=== PATIENT | male | born 1960 | race Caucasian/White ===

== ENCOUNTER 2020-05-30 12:45 | Outpatient (REF) | payer SELFPAY ==
--- NOTE | 2020-05-30 13:01 | EEG_ITS ---
The waking background activity consists of low voltage fast frequencies seen diffusely, intermixed with muscle artifacts anteriorly. Low-voltage beta of 18 to 20 Hz is seen diffusely. No sleep stages identified. Photic stimulation is without activation. Hyperventilation was omitted. IMPRESSION: This waking EEG is within normal limits. No sleep stages were identified. MD MITCH Lomeli/BINDU / [id number]
== END 2020-05-30 12:46 | disposition home or self-care (01) ==
LOC: HO.NEURO 12:45
PROVIDERS: PCP Family Medicine; Visit Provider Psychiatry & Neurology Neurology
DX: G47.52 REM sleep behavior disorder (principal); G40.201 Localization-related (focal) (partial) symptomatic epilepsy and epileptic syndromes with complex partial seizures, not intractable, with status epilepticus
CPT/HCPCS: 95816

== ENCOUNTER → 2020-06-05 08:03 | Outpatient (BNVA) | payer BC, SELFPAY | PROVIDERS: Visit Provider Psychiatry & Neurology Neurology | DX: Z13.89 Encounter for screening for other disorder (principal) ==

== ENCOUNTER → 2020-06-08 09:51 | Outpatient (BNVA) | payer BC, SELFPAY | PROVIDERS: PCP Family Medicine; Visit Provider Nurse Practitioner Family | DX: I48.0 Paroxysmal atrial fibrillation (principal); I10 Essential (primary) hypertension; G47.33 Obstructive sleep apnea (adult) (pediatric); R56.9 Unspecified convulsions; E11.9 Type 2 diabetes mellitus without complications; Z79.4 Long term (current) use of insulin; Z79.899 Other long term (current) drug therapy | CPT/HCPCS: 93005 ==

== ENCOUNTER → 2020-09-17 13:41 | Outpatient (BNVA) | payer BC, SELFPAY | PROVIDERS: Visit Provider Internal Medicine Cardiovascular Disease | DX: I48.0 Paroxysmal atrial fibrillation (principal) | CPT/HCPCS: 93005 ==

== ENCOUNTER → 2021-04-10 14:29 | Outpatient (BNVA) | payer BC, SELFPAY | PROVIDERS: PCP Family Medicine; Visit Provider Nurse Practitioner Family ==

== ENCOUNTER → 2021-11-11 15:26 | Outpatient (BNVA) | payer BC, SELFPAY | PROVIDERS: PCP Family Medicine; Visit Provider Internal Medicine Cardiovascular Disease | DX: Z13.89 Encounter for screening for other disorder (principal) ==

== ENCOUNTER → 2022-05-21 15:37 | Outpatient (BNVA) | payer BC, SELFPAY | PROVIDERS: PCP Family Medicine; Referring Provider Family Medicine; Visit Provider Internal Medicine Cardiovascular Disease | DX: I48.0 Paroxysmal atrial fibrillation (principal); I10 Essential (primary) hypertension | CPT/HCPCS: 93005 ==

== ENCOUNTER 2022-09-20 12:13 | Inpatient (IN) | payer BC, SELFPAY ==
[2022-09-20] VITALS (12 sets, daily range): BP systolic 109–159; BP diastolic 55–83; PULSE 59–133; RESP 16–18; TEMP 36.4–37.3; O2SAT 93–98; BMI 34.4
--- NOTE | ~2022-09-20 | XR_ITS ---
EXAMINATION: XR chest 1V CLINICAL INFORMATION: Reason for Exam Chest pain COMPARISON: Chest radiograph 04/23/2020 TECHNIQUE: One view of the chest FINDINGS: Clear lungs. No pneumothorax or pleural effusion. Normal cardiomediastinal silhouette. Cardiac loop recorder device overlies the left hemithorax. XR/XR chest 1V IMPRESSION: * Clear lungs.
--- NOTE | 2022-09-20 12:14 | ECG_ITS ---
Test Reason : CP Blood Pressure : / mmHG Vent. Rate : 124 BPM Atrial Rate : 000 BPM P-R Int : 000 ms QRS Dur : 094 ms QT Int : 296 ms P-R-T Axes : 000 -06 008 degrees QTc Int : 425 ms Atrial fibrillation with rapid ventricular response Minimal voltage criteria for LVH, may be normal variant ( [place] product ) Inferior infarct (cited on or before 23-APR-2020) Abnormal ECG When compared with ECG of 23-APR-2020 06:14, Atrial fibrillation has replaced Sinus rhythm T wave inversion no longer evident in Inferior leads Referred By: Monserrat Bryant Electronically Signed By:JENNIFER MEJIA MD
--- NOTE | 2022-09-20 12:44 | ED_ITS ---
HPI - Arrhythmia/Palpitations General Chief Complaint: Arrhythmia/Palpitations Stated Complaint: cp Time Seen by Provider: 09/20/22 12:31 Source: patient Mode of arrival: ambulatory History of Present Illness HPI narrative: 62-year-old male who presents with onset of lightheadedness and chest pressure after feeling heart palpitations while he was working. He has known atrial fibrillation and is currently on Eliquis. Patient states that he took all of his medications and has otherwise felt in good health and denies any recent illnesses. Related Data Home Medications Medication Instructions Recorded Confirmed allopurinol 300 mg tablet 300 mg PO DAILY 05/12/20 11/11/21 atorvastatin 20 mg tablet 20 mg PO DAILY 05/12/20 11/11/21 magnesium oxide 400 mg (241.3 mg 400 mg PO BID PRN 05/12/20 11/11/21 magnesium) tablet metformin 500 mg tablet 1,000 mg PO BID 05/12/20 11/11/21 pantoprazole 40 mg tablet,delayed 40 mg PO DAILY 05/12/20 11/11/21 release levetiracetam 500 mg tablet 1,000 mg PO BID 06/08/20 11/11/21 Previous Rx's Medication Instructions Recorded flecainide 150 mg tablet 300 mg PO DAILY PRN atrial 06/08/20 fibrillation #60 tabs losartan 50 mg tablet 50 mg PO DAILY #90 tabs 01/04/21 metoprolol succinate 25 mg 25 mg PO DAILY #90 tabs 09/04/21 tablet,extended release 24 hr apixaban 5 mg tablet (Eliquis) 5 mg PO BID #180 tabs 10/09/21 Allergies Allergy/AdvReac Type Severity Reaction Status Date / Time No Known Allergies Allergy Verified 05/21/22 16:01 [No Known Allergies*] Review of Systems Review of Systems: Pertinent positives and negatives as stated in HPI PMFSH Past Medical History Source: nursing notes reviewed Medical History Diabetes mellitus HTN (hypertension) Obstructive sleep apnea PAF (paroxysmal atrial fibrillation) Surgical History History of right knee surgery Hx of colonoscopy Hx of hernia repair Family History Family History Father CVD (cardiovascular disease) Stroke Arteriosclerosis of bypass graft of coronary artery Diabetes CHF (congestive heart failure) Mother No problems noted. Social History Social History Alcohol intake: current Alcohol intake frequency: holidays/special occasions only Patient Tobacco Use Status: Never used Tobacco Advance Directives: No Advance Directives Information Provided: Yes Physical Exam Vital Signs: Vital Signs: Last Vital Signs Temp 97.6 F 09/20/22 16:00 Pulse 89 09/20/22 16:41 Resp 18 09/20/22 16:41 BP 122/56 L 09/20/22 16:41 Pulse Ox 96 09/20/22 16:41 O2 Del Method 09/20/22 16:41 BMI result Body Mass Index 34.4 VITAL SIGNS: Reviewed. GENERAL: Well developed, well nourished, in no acute distress. HEAD: Normocephalic/atraumatic EYES: PERRLA, EOMI EARS: Ext canals without abnormality LUNGS: Normal breath sounds. No adventitious sounds or accessory muscle use. SpO2<97> CARDIOVASCULAR: Regular rate and rhythm without noted murmurs, no JVD or lower extremity edema. ABDOMEN: Soft, non-tender, non-distended with bowel sounds. MUSCULOSKELETAL: No tenderness, deformities, or effusions noted on gross inspection. EXTREMITIES: No cyanosis, clubbing or edema. SKIN: Inspection of the skin reveals no rashes NEUROLOGIC: Alert and oriented x 4. Strength and sensation to light touch were grossly intact x 4. Medications Administered Discontinued Medications Generic Name Dose Route Start Last Admin Trade Name Freq PRN Reason Stop Dose Admin Aspirin 324 mg 09/20/22 14:26 09/20/22 14:29 Aspirin 81 Mg Tab.Chew PO 09/20/22 14:27 324 mg ONCE ONE Administration Flecainide Acetate 150 mg 09/20/22 15:00 09/20/22 15:28 Flecainide Acetate 50 Mg Tablet PO 09/20/22 15:01 150 mg ONCE ONE Administration Metoprolol Tartrate 5 mg 09/20/22 12:43 09/20/22 12:46 Metoprolol Tartrate 5 Mg/5 Ml Vial IVPUSH 09/20/22 12:44 5 mg ONCE ONE Administration Metoprolol Tartrate 5 mg 09/20/22 13:02 09/20/22 13:08 Metoprolol Tartrate 5 Mg/5 Ml Vial IVPUSH 09/20/22 13:03 5 mg ONCE ONE Administration Metoprolol Tartrate 5 mg 09/20/22 13:22 09/20/22 13:27 Metoprolol Tartrate 5 Mg/5 Ml Vial IVPUSH 09/20/22 13:23 5 mg ONCE ONE Administration Metoprolol Tartrate 25 mg 09/20/22 13:23 09/20/22 13:27 Metoprolol Tartrate 25 Mg Tablet PO 09/20/22 13:24 25 mg ONCE ONE Administration Protocol Medical Decision Making Medical Decision Making MDM Narrative: 62-year-old male in atrial fibrillation with RVR and will be treated with initial 5 mg of Lopressor. Basic labs and imaging will be ordered. Patient has required 2 additional doses of 5 mg of Lopressor and heart rate now is in the high 90s with good blood pressure and patient has had complete resolution of his chest pain. Reviewed all investigations and there is no evidence of underlying infection, anemia, or electrolyte abnormalities. While I was reviewing patient's telemetry I felt like there may be some ST elevation and requested a 2nd EKG. On reviewing the EKG I noted that patient had ST elevations in lead 1/aVL and also had increasing ST changes in the lateral leads with reciprocal changes in lead 3. I discussed the case with [facility] president educational institution as notated below and will proceed with 2nd troponin. I did discuss with the patient at bedside that there were some concerns for possible cardiac ischemia ongoing at this time. Patient will receive aspirin and again, is hemodynamically stable. Patient informed of admission. Consult Healthcare Provider Management of the patient was discussed with: Hospitalist and Simulation Engineer 1420: I discussed the case with the president educational institution, Dr. Narvaez, who acknowledges the ST elevations noted in lead 1/aVL and ST changes in V5/V6 but recommends at this time as patient is chest pain-free with good hemodynamics and he recommends to repeat the troponin and give aspirin. 1458: I notified Dr. Narvaez that the 2nd troponin was flat in comparison, he suggests that the EKG changes that we are seeing may be secondary to early repolarization and is recommending to administer patient's home dose of 150 mg of flecainide to convert him?. 1627: Repeat EKG still demonstrates atrial fibrillation with rate control and patient remains without chest pain, this was discussed with cardiology who agrees with admission and recommends repeat troponin in 6-8 hours. 1642: I discussed case with the inpatient hospitalist who will be reviewing the case, but is accepting admission at this time. Lab Data MDM Lab Attestation statement: I reviewed the patient's lab results. Please see the discussion above 09/20/22 12:41 09/20/22 12:41 Labs: Lab Results 09/20/22 09/20/22 09/20/22 Range/Units 12:41 12:41 12:41 WBC 8.8 (4.8-10.8) X10*3/uL RBC 5.04 (4.60-5.80) X10*6/uL Hgb 15.3 (14.0-18.0) g/dl Hct 44.8 (42.0-52.0) % MCV 88.9 (80.0-98.0) fL MCH 30.4 (27.0-33.0) pg MCHC 34.2 (31.0-36.0) g/dl RDW 13.4 (11.0-16.0) % Plt Count 211 (160-400) X10*3/uL MPV 10.8 (9.4-12.4) fL Immature Gran % (Auto) 0.2 (0.0-0.4) % Neut % (Auto) 54.4 (45-73) % Lymph % (Auto) 28.7 (20-40) % [place] % (Auto) 9.8 (2-11) % Eos % (Auto) 5.8 H (0-4) % Baso % (Auto) 1.1 (0-2) % Lymph # (Auto) 2.5 (1.2-4.9) X10*3/uL [place] # (Auto) 0.9 (0.1-1.2) X10*3/uL Eos # (Auto) 0.5 H (0.0-0.4) X10*3/uL Baso # (Auto) 0.1 (0.0-0.2) X10*3/uL Abs Immat Gran (auto) 0.02 (0.00-0.03) X10*3/uL Absolute Neuts (auto) 4.8 (2.0-8.3) x10*3/uL Absolute Nucleated RBC 0.000 (0.0-0.012) X10*3/uL Nucleated RBC % (auto) 0.0 (0.0-0.2) /100WBC PT 12.4 (10.0-13.1) SEC INR 1.1 (0.9-1.1) Sodium 140 (135-145) mmol/L Potassium 4.6 (3.3-5.1) mmol/L Chloride 107 (96-108) mmol/L Carbon Dioxide 22 (22-29) mmol/L Anion Gap 16 (12-20) BUN 20 H (9-16) mg/dL Creatinine 0.98 (0.5-1.4) mg/dL Estim Creat Clear Calc 95.3 Estimated GFR > 60 Random Glucose 193 H (60-115) mg/dL Calcium 9.9 (8.4-10.2) mg/dL Total Bilirubin 0.6 (0.0-1.0) mg/dL AST 20 (5-37) U/L ALT 26 (0-40) U/L Alkaline Phosphatase 85 (39-117) U/L Troponin I High Sens (<3.5-35.0) ng/L Total Protein 6.7 (6.5-8.0) g/dL Albumin 4.3 (3.5-5.0) g/dL COVID-19 ([place]) (Negative) COVID-19 Clin Com 09/20/22 09/20/22 09/20/22 Range/Units 12:41 12:49 14:23 WBC (4.8-10.8) X10*3/uL RBC (4.60-5.80) X10*6/uL Hgb (14.0-18.0) g/dl Hct (42.0-52.0) % MCV (80.0-98.0) fL MCH (27.0-33.0) pg MCHC (31.0-36.0) g/dl RDW (11.0-16.0) % Plt Count (160-400) X10*3/uL MPV (9.4-12.4) fL Immature Gran % (Auto) (0.0-0.4) % Neut % (Auto) (45-73) % Lymph % (Auto) (20-40) % [place] % (Auto) (2-11) % Eos % (Auto) (0-4) % Baso % (Auto) (0-2) % Lymph # (Auto) (1.2-4.9) X10*3/uL [place] # (Auto) (0.1-1.2) X10*3/uL Eos # (Auto) (0.0-0.4) X10*3/uL Baso # (Auto) (0.0-0.2) X10*3/uL Abs Immat Gran (auto) (0.00-0.03) X10*3/uL Absolute Neuts (auto) (2.0-8.3) x10*3/uL Absolute Nucleated RBC (0.0-0.012) X10*3/uL Nucleated RBC % (auto) (0.0-0.2) /100WBC PT (10.0-13.1) SEC INR (0.9-1.1) Sodium (135-145) mmol/L Potassium (3.3-5.1) mmol/L Chloride (96-108) mmol/L Carbon Dioxide (22-29) mmol/L Anion Gap (12-20) BUN (9-16) mg/dL Creatinine (0.5-1.4) mg/dL Estim Creat Clear Calc Estimated GFR Random Glucose (60-115) mg/dL Calcium (8.4-10.2) mg/dL Total Bilirubin (0.0-1.0) mg/dL AST (5-37) U/L ALT (0-40) U/L Alkaline Phosphatase (39-117) U/L Troponin I High Sens 21.4 24.0 (<3.5-35.0) ng/L Total Protein (6.5-8.0) g/dL Albumin (3.5-5.0) g/dL COVID-19 ([place]) Negative (Negative) COVID-19 Clin Com See Note Independent Interpretation I performed an independent interpretation of an: EKG Interpretation: Atrial fibrillation with RVR, HR-124, QRS/QTC are within normal limits. 1401: Atrial fibrillation, HR-98, ST elevations noted and lead 1, aVL, ST changes noted in V4/V5. Radiology Impression Radiologist Impression: My interpretation is in agreement with radiology's impression of the imaging study. External Record Review External record reviewed: Outpatient record and Prior outpatient labs Chronic Conditions Patient?s care impacted by: Diabetes and Hypertension Critical Care Time Critical Care Time Critical Care Time: Yes Total Critical Care Time: 60 Attestation: I personally attest to this time spent taking care of the patient. Discharge Plan Discharge Clinical Impression: Atrial fibrillation with RVR, ACS (acute coronary syndrome), ST segment changes on electrocardiogram Patient Disposition: Admitted As Inpatient Prescriptions: No Action flecainide 150 mg tablet 300 mg PO DAILY PRN (Reason: atrial fibrillation) Qty: 60 0RF losartan 50 mg tablet 50 mg PO DAILY Qty: 90 2RF metoprolol succinate 25 mg tablet extended release 24 hr 25 mg PO DAILY Qty: 90 3RF Eliquis 5 mg tablet 5 mg PO BID Qty: 180 3RF atorvastatin 20 mg tablet 20 mg PO DAILY allopurinol 300 mg tablet 300 mg PO DAILY metformin 500 mg tablet 1,000 mg PO BID pantoprazole 40 mg tablet,delayed release (DR/EC) 40 mg PO DAILY magnesium oxide 400 mg (241.3 mg magnesium) tablet 400 mg PO BID PRN levetiracetam 500 mg tablet 1,000 mg PO BID
[2022-09-20 12:45] LABS: MANUAL DIFF FLAG NO
[2022-09-20] MEDS: Metoprolol Tartrate 5 MG/5 ML VIAL IVPUSH ×3 (12:46→13:27)
[2022-09-20 12:48] LABS: Basophils Absolute Auto 0.1 X10*3/uL (0.0-0.2); Basophils Percent Auto 1.1 % (0-2); Eosinophils Absolute Auto 0.5 X10*3/uL (0.0-0.4); Eosinophils Percent Auto 5.8 % (0-4); Hematocrit 44.8 % (42.0-52.0); Hemoglobin 15.3 g/dl (14.0-18.0); Imm Gran Abs Auto 0.02 X10*3/uL (0.00-0.03); Imm Gran Pct Auto 0.2 % (0.0-0.4); Lymphocytes Absolute Auto 2.5 X10*3/uL (1.2-4.9); Lymphocytes Percent Auto 28.7 % (20-40); Mean Corpuscular HGB Conc 34.2 g/dl (31.0-36.0); Mean Corpuscular Hemoglobin 30.4 pg (27.0-33.0); Mean Corpuscular Volume 88.9 fL (80.0-98.0); Mean Platelet Volume 10.8 fL (9.4-12.4); Monocytes Absolute Auto 0.9 X10*3/uL (0.1-1.2); Monocytes Percent Auto 9.8 % (2-11); Neutrophils Absolute Auto 4.8 x10*3/uL (2.0-8.3); Neutrophils Percent Auto 54.4 % (45-73); Platelet Count 211 X10*3/uL (160-400); Red Blood Count 5.04 X10*6/uL (4.60-5.80); Red Cell Distribution Width 13.4 % (11.0-16.0); White Blood Count 8.8 X10*3/uL (4.8-10.8)
[2022-09-20 12:53] LABS: INTERNATIONAL NORM RATIO 1.1 (0.9-1.1); Prothrombin Time 12.4 SEC (10.0-13.1)
--- NOTE | 2022-09-20 12:54 | PC.NURSE ---
Patient in Afib known histroy HR 130's -140 s improvement post lopressor admin IV MD aware
[2022-09-20 13:06] LABS: Alanine Aminotransferase 26 U/L (0-40); Albumin Level 4.3 g/dL (3.5-5.0); Alkaline Phosphatase 85 U/L (39-117); Anion Gap 16 (12-20); Aspartate Amino Transferase 20 U/L (5-37); Bilirubin Total 0.6 mg/dL (0.0-1.0); Blood Urea Nitrogen 20 mg/dL (9-16); Calcium 9.9 mg/dL (8.4-10.2); Carbon Dioxide 22 mmol/L (22-29); Chloride 107 mmol/L (96-108); Creatinine Clr Calc Pharmacy 95.3; Estimated Glomerular Filt Rate > 60; Glucose Random 193 mg/dL (60-115); Potassium 4.6 mmol/L (3.3-5.1); Sodium 140 mmol/L (135-145); Total Protein 6.7 g/dL (6.5-8.0)
[2022-09-20 13:07] LABS: COVID-19 Test Negative (Negative); IDNOW Serial# 16C4AD1C
[2022-09-20 13:07] LABS: Troponin-I High Sensitivity 21.4 ng/L (<3.5-35.0)
[2022-09-20] MEDS: Metoprolol Tartrate 25 MG TABLET PO ×2 (13:27→20:58)
--- NOTE | 2022-09-20 13:50 | PC.NURSE ---
Patient remains in A fib at improved rate 98-105 reports improvement in chest pressure will CTM
--- NOTE | 2022-09-20 13:57 | ECG_ITS ---
Test Reason : AFIB Blood Pressure : / mmHG Vent. Rate : 098 BPM Atrial Rate : 000 BPM P-R Int : 000 ms QRS Dur : 096 ms QT Int : 302 ms P-R-T Axes : 000 -08 -14 degrees QTc Int : 385 ms Atrial fibrillation Minimal voltage criteria for LVH, may be normal variant ( R in aVL ) Inferior infarct (cited on or before 23-APR-2020) ST elevation in Lateral leads Abnormal ECG When compared with ECG of 20-SEP-2022 12:23, ST elevation now present in Lateral leads T wave inversion now evident in Inferior leads Referred By: Guadalupe Garces Electronically Signed By:JENNIFER MEJIA MD
--- NOTE | 2022-09-20 14:16 | PC.NURSE ---
Patient reports relief to chest pressure, MD noticed change in telemetry repeat EKG obtained some ekg changes noted MD to follow up with cardiology will ANTONM
[2022-09-20] MEDS: Aspirin 81 MG TAB.CHEW 324 MG PO (14:29)
--- NOTE | 2022-09-20 14:46 | ECG_ITS ---
Test Reason : AFIB Blood Pressure : / mmHG Vent. Rate : 103 BPM Atrial Rate : 000 BPM P-R Int : 000 ms QRS Dur : 096 ms QT Int : 304 ms P-R-T Axes : 000 -04 -02 degrees QTc Int : 398 ms Atrial fibrillation with rapid ventricular response Inferior infarct (cited on or before 23-APR-2020) Abnormal ECG When compared with ECG of 20-SEP-2022 14:01, No significant change was found Referred By: Guadalupe Garces Electronically Signed By:JENNIFER MEJIA MD
--- NOTE | 2022-09-20 15:10 | PC.NURSE ---
Verified medication order with MD pharmacy notified need dose of med (flecainide) patient resting comfortably will CTM
[2022-09-20] MEDS: Flecainide Acetate 50 MG TABLET 150 MG PO (15:28)
--- NOTE | 2022-09-20 16:16 | ECG_ITS ---
Test Reason : AFIBB Blood Pressure : / mmHG Vent. Rate : 087 BPM Atrial Rate : 000 BPM P-R Int : 000 ms QRS Dur : 096 ms QT Int : 322 ms P-R-T Axes : 000 -08 001 degrees QTc Int : 387 ms Atrial fibrillation with premature ventricular or aberrantly conducted complexes Minimal voltage criteria for LVH, may be normal variant ( [place] product ) Inferior infarct (cited on or before 23-APR-2020) Abnormal ECG When compared with ECG of 20-SEP-2022 14:47, No significant change was found Referred By: Guadalupe Garces Electronically Signed By:JENNIFER MEJIA MD
--- NOTE | 2022-09-20 16:20 | PC.NURSE ---
Chest pain/pressure resolved remains in afib at bedside
--- NOTE | 2022-09-20 16:24 | MHC.EDTECH ---
this pct assumed care of pt at 1500 ,vitals sign and repeated ekg done ,pt at bedside .
--- NOTE | 2022-09-20 17:23 | PC.NURSE ---
Inpatient PA at bedside
--- NOTE | 2022-09-20 17:30 | PM.IMHP ---
History of Present Illness Date of Service: 09/20/22 Attending physician on admission: Ana Cordon Chief Complaint: Chest pressure, palpitations Pt is a 62-year-old male with a PMH significant for?AFib on Eliquis, HLD, HTN, [id number]-[id number] DM, GERD, and obstructive sleep apnea who presents to the ED with chest pressure and palpitations for one hour. 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 Pt could feel his heart racing if he placed hand on chest. He rested for a bit, felt better, then went back to work when symptoms almost immediately returned and persisted despite additional rest. EMS called and pt taken to ED where he was found to be in AFib with RVR of 133. Patient was initially given 5 mg of metoprolol to little effect; was given 2 additional doses of 5 mg which brought heart rate into the 90s and patient had resolution of his chest pain/pressure. First troponin negative at 21.4 with 2nd flat at 24.0. Repeat EKG showed ST changes in 1/aVL and V5/V6. Cardiology consult suggested EKG changes may be secondary to early repolarization: patient was given home dose of metoprolol 25 mg and flecainide 150 mg in an attempt to chemically convert to normal sinus rhythm. Patient otherwise hemodynamically stable with all other labs unremarkable. CXR clear. UA clear. 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 Pt's father's side of the family has an extensive history of heart problems, including AFib, CAD, and ACS. Pt states he had two stress tests 2-3 years ago -- one exercise and one nuclear -- and both wer negative. Patient will be admitted to telemetry for further evaluation and treatment for symptomatic chronic AFib with RVR. Review of Systems Review of Systems: Chest pain/pressure x1 hour Palpitations SOB Lightheadedness No nausea, vomiting, fever, chills Denies abdominal pain Yes all other systems are reviewed and are negative [facility] Medical History Diabetes mellitus HTN (hypertension) Obstructive sleep apnea PAF (paroxysmal atrial fibrillation) Family History Father CVD (cardiovascular disease) Stroke Arteriosclerosis of bypass graft of coronary artery Diabetes CHF (congestive heart failure) Mother No problems noted. Surgical History History of right knee surgery Hx of colonoscopy Hx of hernia repair Social History Household Members: Spouse Housing: House Do you presently have visiting nurse or other home services: No Alcohol intake: current Alcohol intake frequency: holidays/special occasions only Patient Tobacco Use Status: Never used Tobacco Use of substances other than those prescribed or required for medical reasons: No Currently Displaying Signs/Symptoms of Drug Intoxication Withdrawal: No Do you feel safe in your current relationship?: Yes Is there a partner from a previous relationship who is making you feel unsafe now?: No Are you made to feel afraid or neglected: No Advance Directives: No Advance Directives Information Provided: Yes Do you have thoughts of harming others: None Do you have a plan to hurt others: No Plan Recently lost weight without trying: No Eating poorly because of decreased appetite: No Nutrition Risks: No Nutritional Risk Poor oral hygiene: No service: Yes Current occupational status: employed Meds Allergies Allergy/AdvReac Type Severity Reaction Status Date / Time No Known Allergies Allergy Verified 05/21/22 16:01 [No Known Allergies*] Active Medications: Current Medications Pharmacy Consult (Consult Rx Perform Med Rec) 1 each MISCELLANE ONCE PRN PRN Reason: Consult order Home Medications Medication Instructions Recorded Confirmed Last Taken Type allopurinol 300 mg tablet 300 mg PO DAILY 05/12/20 09/20/22 09/20/22 09:00 History atorvastatin 20 mg tablet 20 mg PO DAILY 05/12/20 09/20/22 09/20/22 09:00 History magnesium oxide 400 mg (241.3 mg 400 mg PO BID 05/12/20 09/20/22 09/20/22 09:00 History magnesium) tablet metformin 500 mg tablet 1,000 mg PO BID 05/12/20 09/20/22 09/20/22 09:00 History pantoprazole 40 mg tablet,delayed 40 mg PO DAILY@0630 05/12/20 09/20/22 09/20/22 09:00 History release levetiracetam 500 mg tablet 1,000 mg PO BID 06/08/20 09/20/22 09/20/22 09:00 History aspirin 325 mg tablet 325 mg PO DAILY PRN Migraine 09/20/22 09/20/22 Unknown History Headache flecainide 150 mg tablet 150 mg PO BID PRN atrial 09/20/22 09/20/22 Unknown History fibrillation losartan 50 mg tablet 50 mg PO BEDTIME 09/20/22 09/20/22 09/19/22 History melatonin 10 mg tablet 10 mg PO BEDTIME 09/20/22 09/20/22 09/19/22 History sitagliptin phosphate 25 mg tablet 1 tab PO BEDTIME 09/20/22 09/20/22 09/19/22 History () Physical Exam Vital Signs and Narrative: Vital Signs: Last Vital Signs Temp 97.6 F 09/20/22 16:00 Pulse 89 09/20/22 16:41 Resp 18 09/20/22 16:41 BP 122/56 L 09/20/22 16:41 Pulse Ox 96 09/20/22 16:41 O2 Del Method 09/20/22 16:41 BMI result Body Mass Index 34.4 Constitutional: Alert, in no acute distress. Mental Status: Oriented to person, place and time. Eyes: Pupils are equal, round, and reactive to light. Ear, Nose, and Throat: Oropharynx clear, mucous membranes moist. Ears and nose without deformities. Trachea midline. Respiratory: Clear to auscultation bilaterally. No wheezing, rales, or rhonchi. Cardiovascular: Irregularly irregular rhythm. No murmurs, rubs, or gallops. Gastrointestinal: Abdomen soft, non-tender, non-distended. Normal bowel sounds. Neurologic: Cranial nerves II-XII are grossly intact. No focal neurological deficits. Moves all extremities spontaneously. Skin: No rashes or lesions noted. Musculoskeletal: No cyanosis or clubbing. Extremities: No edema. Psychiatric: Normal mood and affect. Results Labs 09/20/22 12:41 09/20/22 12:41 Labs: Laboratory Results - last 24 hr 09/20/22 09/20/22 09/20/22 12:41 12:41 12:41 MCV 88.9 MCH 30.4 MCHC 34.2 RDW 13.4 Plt Count 211 MPV 10.8 Immature Gran % (Auto) 0.2 Neut % (Auto) 54.4 Lymph % (Auto) 28.7 [place] % (Auto) 9.8 Eos % (Auto) 5.8 H Baso % (Auto) 1.1 Lymph # (Auto) 2.5 [place] # (Auto) 0.9 Eos # (Auto) 0.5 H Baso # (Auto) 0.1 Abs Immat Gran (auto) 0.02 Absolute Neuts (auto) 4.8 Absolute Nucleated RBC 0.000 Nucleated RBC % (auto) 0.0 PT 12.4 INR 1.1 Anion Gap 16 Estim Creat Clear Calc 95.3 Estimated GFR > 60 Random Glucose 193 H Calcium 9.9 Total Bilirubin 0.6 AST 20 ALT 26 Alkaline Phosphatase 85 Troponin I High Sens Total Protein 6.7 Albumin 4.3 COVID-19 ([place]) COVID-19 [employer] 09/20/22 09/20/22 09/20/22 12:41 12:49 14:23 MCV MCH MCHC RDW Plt Count MPV Immature Gran % (Auto) Neut % (Auto) Lymph % (Auto) [place] % (Auto) Eos % (Auto) Baso % (Auto) Lymph # (Auto) [place] # (Auto) Eos # (Auto) Baso # (Auto) Abs Immat Gran (auto) Absolute Neuts (auto) Absolute Nucleated RBC Nucleated RBC % (auto) PT INR Anion Gap Estim Creat Clear Calc Estimated GFR Random Glucose Calcium Total Bilirubin AST ALT Alkaline Phosphatase Troponin I High Sens 21.4 24.0 Total Protein Albumin COVID-19 ([place]) Negative COVID-19 Clin Com See Note Imaging Radiologist's Impressions: Impressions Chest X-Ray 09/20/22 12:57 IMPRESSION: * Clear lungs. Assessment and Plan (1) Atrial fibrillation with RVR: Status: Acute (2) Chest pressure: Status: Acute Plan Pt is a 62-year-old male with a PMH significant for?AFib on Eliquis, HLD, HTN, zyt-malbmac-zsbwaqxqq DM, GERD, and obstructive sleep apnea who presents to the ED with chest pressure and palpitations for one hour. Patient will be admitted to telemetry for further workup and treatment of symptomatic chronic AFib with RVR. Symptomatic chronic AFib with RVR Patient with chest pain/pressure, palpitations x1 hour Patient given 3 doses of metoprolol 5 mg IV push, symptoms resolved Metoprolol 25 mg b.i.d. Continue Eliquis Monitor on telemetry Cardiology consult Repeat EKG if patient develops chest pain/pressure or palpitations again Check TSH EKG with ST changes in 1/aVL in V5/V6 Possibly secondary to early repolarization, per account liaison cardiology consult Initial troponin negative at 21.4 and repeat flat and 24.0 Patient without chest pain/pressure Patient given aspirin 325 mg and home doses of metoprolol 25 mg and flecainide 150 mg Metoprolol 25 mg b.i.d. Continue flecainide Aspirin 81 mg Continue atorvastatin Repeat troponins in 6-8 hours Ywx-ooogthw-uohlfjcam diabetes Hold home meds SSI HTN Hold losartan given increase in metoprolol HLD Continue statin Gout Continue allopurinol Obstructive sleep apnea Continue Keppra GERD Continue pantoprazole Obese Encourage to lose weight Full Code Attending:?Dr. Cordon DVT Prophylaxis: On Eliquis Pt will require a hospitalization of at least two nights for treatment, monitoring, and further evaluation of?symptomatic chronic AFib with RVR. Time Spent With Patient Time: Total time managing care of this patient today ____ minutes. Quality Stroke Does the patient have a stroke diagnosis?: No VTE Prior VTE?: No VTE Risk Level:: Medical - moderate - high VTE Device Contraindication: Treatment Not Indicated VTE Drug Contraindication: N/A - Med Ordered
--- NOTE | 2022-09-20 18:09 | P.EN_ITS ---
Event Note Date of Service: 09/21/22 Event Note: This patient is seen and examined. 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 Lab imaging, EKG reviewed. Troponin x2 negative, EKG initially shows ST changes discussed by ED physician likely secondary to repolarization changes. CBC BMP seems fine Chest x-ray clear Patient received 20 mg of IV metoprolol, in addition received flecainide, aspirin: Subsequently his heart rate came 80 to 90. ED discussed the case with Cardiology and requested admission for overnight for tele monitoring and for management of AFib as well as trending troponin. Physical exam and assessment and plan coordinated in APCs note, Agree with the plan in addition: Chest pain/palpitation:? Patient chest tightness resolved with improvement of palpitations ?afib with rvr related will trend trop 6 hours as suggested Please repeat EKG if new chest pain or any palpitation, if troponin trend up consider calling Cardiology. Cardiology evaluation, echo Will adjust metoprolol 25 b.i.d. Time Spent With Patient Time: Total time managing care of this patient today ____ minutes.
--- NOTE | 2022-09-20 18:21 | PHA.MEDREC ---
Pharmacy Consult ? Medication Reconciliation Pharmacy has completed the medication reconciliation. Spoke to patient and spouse at bedside.
[2022-09-20 18:38] LABS: Thyroid Stimulating Hormone 4.54 uIU/mL (0.32-4.0)
--- NOTE | 2022-09-20 18:38 | MHC.EDTECH ---
1800 rounding and vitals sign taken ,pt resting quietly ,pt at bedside .
[2022-09-20 20:51] LABS: Glucose, Whole Blood 138 mg/dL (60-115)
[2022-09-20] MEDS: levETIRAcetam 1,000 MG TABLET 1000 MG PO (20:57)
[2022-09-20] MEDS: Melatonin 3 MG TABLET 9 MG PO (20:58)
[2022-09-20] MEDS: Apixaban 5 MG TABLET PO (20:58)
[2022-09-20] MEDS: Magnesium Oxide 400 MG TABLET PO (20:59)
[2022-09-20] MEDS: 0.9 % Sodium Chloride Flush 3 ML SYRINGE IVFLUSH (20:59)
[2022-09-20 21:41] LABS: Troponin-I High Sensitivity 18.8 ng/L (<3.5-35.0)
--- NOTE | 2022-09-21 | ECG_ITS ---
Test Reason : DR DIXON Blood Pressure : / mmHG Vent. Rate : 065 BPM Atrial Rate : 065 BPM P-R Int : 158 ms QRS Dur : 102 ms QT Int : 370 ms P-R-T Axes : 117 204 199 degrees QTc Int : 384 ms Suspect limb lead reversal, interpretation assumes no reversal Normal sinus rhythm Right superior axis deviation Abnormal ECG When compared with ECG of 20-SEP-2022 16:19, Sinus rhythm has replaced Atrial fibrillation QRS axis Shifted left ST no longer elevated in Lateral leads Referred By: Ana Cordon Electronically Signed By:Baltazar Isaac
--- NOTE | 2022-09-21 | ECG_ITS ---
Test Reason : cp Blood Pressure : / mmHG Vent. Rate : 064 BPM Atrial Rate : 064 BPM P-R Int : 152 ms QRS Dur : 104 ms QT Int : 378 ms P-R-T Axes : 032 -02 001 degrees QTc Int : 389 ms Normal sinus rhythm Minimal voltage criteria for LVH, may be normal variant ( [place] product ) Borderline ECG When compared with ECG of 21-SEP-2022 13:50, QRS axis Shifted right . Previous ECG has limb leads reversal. Referred By: Ana Cordon Electronically Signed By:Baltazar Isaac
[2022-09-21 03:59] VITALS: BP 129/61; PULSE 58; RESP 20; TEMP 37.2; O2SAT 98
[2022-09-21] MEDS: Omeprazole 20 MG CAPSULE.DR PO (06:04)
[2022-09-21 07:43] LABS: Glucose, Whole Blood 202 mg/dL (60-115)
[2022-09-21 07:46] VITALS: BP 115/63; PULSE 67; RESP 16; TEMP 36.2; O2SAT 97
[2022-09-21] MEDS: Insulin Lispro 100 UNIT/ML 3 ML VIAL SUBCUT ×3 (07:55→16:45)
[2022-09-21] MEDS: levETIRAcetam 1,000 MG TABLET 1000 MG PO (07:55)
[2022-09-21] MEDS: Apixaban 5 MG TABLET PO (07:55)
[2022-09-21] MEDS: Aspirin 81 MG TAB.CHEW PO (07:56)
[2022-09-21] MEDS: 0.9 % Sodium Chloride Flush 3 ML SYRINGE IVFLUSH (07:56)
[2022-09-21] MEDS: Magnesium Oxide 400 MG TABLET PO (07:56)
[2022-09-21] MEDS: allopurinoL 300 MG TABLET PO (07:56)
[2022-09-21] MEDS: Metoprolol Tartrate 25 MG TABLET PO (07:56)
[2022-09-21] MEDS: Atorvastatin Calcium 20 MG TABLET PO (07:56)
--- NOTE | 2022-09-21 09:09 | MHC.CM.PN ---
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
[2022-09-21 11:06] VITALS: BP 116/70; PULSE 61; RESP 20; TEMP 36.6; O2SAT 94
[2022-09-21 11:11] LABS: Glucose, Whole Blood 253 mg/dL (60-115)
--- NOTE | 2022-09-21 13:50 | P.PNIM_ITS ---
Subjective Subjective Date of Service: 09/22/22 Interval History: chest tightness Review of Systems Chest pain seems to be improved, currently normal sinus rhythm Denies any shortness of breath or abdominal pain or nausea or vomiting Physical Exam Vital Signs: Vital Signs: Last Vital Signs Temp 97.8 F 09/21/22 11:06 Pulse 61 09/21/22 11:06 Resp 20 09/21/22 11:06 BP 116/70 09/21/22 11:06 Pulse Ox 94 09/21/22 11:06 O2 Del Method 09/21/22 11:06 BMI result Body Mass Index 34.4 Appearance: Alert.? Oriented X3.? not in distress.? cvs: rrr, [id number] , no murmur res: clear to auscultation ,no rhonchii or wheezing abd: no rebound or guarding ,nt, bs present. ext pulses present , no cyanosis . neuro: axo3 , nonfocal. Objective Data Active Medications Acetaminophen (Acetaminophen 325 Mg Tablet) 650 mg PO Q6H PRN PRN Reason: Pain, Mild (Pain Scale 1-3) Allopurinol (Allopurinol 300 Mg Tablet) 300 mg PO DAILY [facility] Last Admin: 09/21/22 07:56 Dose: 300 mg Documented By: RIC Apixaban (Apixaban 5 Mg Tablet) 5 mg PO BID [facility] Last Admin: 09/21/22 07:55 Dose: 5 mg Documented By: RIC Aspirin (Aspirin 81 Mg Tab.Chew) 81 mg PO DAILY [facility] Last Admin: 09/21/22 07:56 Dose: 81 mg Documented By: RIC Atorvastatin Calcium (Atorvastatin Calcium 20 Mg Tablet) 20 mg PO DAILY [facility] Last Admin: 09/21/22 07:56 Dose: 20 mg Documented By: RIC Dextrose (Dextrose 50 % 25 Gm/50 Ml Vial) 25 gm IVPUSH Q15M PRN; Protocol PRN Reason: per Hypoglycemia Standing Ord. Flecainide Acetate (Flecainide Acetate 50 Mg Tablet) 150 mg PO BID PRN PRN Reason: atrial fibrillation Glucose (Glucose Gel 15 Gm Gel..Gram.) 15 gm PO Q15M PRN; Protocol PRN Reason: per Hypoglycemia Standing Ord. Insulin Human Lispro (Insulin Lispro 100 Unit/Ml 3 Ml Vial) 0 unit SUBCUT QIDACHS [facility]; Protocol Last Admin: 09/21/22 11:48 Dose: 6 unit Documented By: RIC Levetiracetam (Levetiracetam 1,000 Mg Tablet) 1,000 mg PO BID [facility] Last Admin: 09/21/22 07:55 Dose: 1,000 mg Documented By: RIC Magnesium Oxide (Magnesium Oxide 400 Mg Tablet) 400 mg PO BID [facility] Last Admin: 09/21/22 07:56 Dose: 400 mg Documented By: RIC Melatonin (Melatonin 3 Mg Tablet) 9 mg PO BEDTIME [facility] Last Admin: 09/20/22 20:58 Dose: 9 mg Documented By: PATRICIA Metoprolol Tartrate (Metoprolol Tartrate 25 Mg Tablet) 25 mg PO BID [facility]; Protocol Last Admin: 09/21/22 07:56 Dose: 25 mg Documented By: RIC Omeprazole (Omeprazole 20 Mg Capsule.Dr) 20 mg PO DAILY@0630 [facility] Last Admin: 09/21/22 06:04 Dose: 20 mg Documented By: PATRICIA Pharmacy Consult (Consult Rx Perform Med Rec) 1 each MISCELLANE ONCE PRN PRN Reason: Consult order Sodium Chloride (0.9 % Sodium Chloride Flush 3 Ml Syringe) 3 ml IVFLUSH QSHIFT [facility] Last Admin: 09/21/22 07:56 Dose: 3 ml Documented By: RIC Labs 09/20/22 12:41 09/20/22 12:41 Labs: Laboratory Results - last 24 hr 09/20/22 09/20/22 09/20/22 12:41 14:23 20:45 POC Glucose 138 H Troponin I High Sens 24.0 TSH 4.54 H 09/20/22 09/21/22 09/21/22 21:15 07:40 11:04 POC Glucose 202 H 253 H Troponin I High Sens 18.8 TSH Assessment and Plan (1) Chest pressure: Status: Acute (2) Atrial fibrillation with RVR: Status: Acute Time Spent With Patient Time: Total time managing care of this patient today ____ minutes. Quality Stroke Does the patient have a stroke diagnosis?: No VTE Prior VTE?: No VTE Risk Level:: Medical - moderate - high VTE Device Contraindication: Treatment Not Indicated VTE Drug Contraindication: N/A - Med Ordered
[2022-09-21 14:51] LABS: Appearance Urine Clear; Color Urine Yellow; Glucose Urine UA >=1000 mg/dL (Negative); Leukocyte Esterase Urine Negative (Negative); Nitrite Urine Negative (Negative); Specific Gravity - Urine >= 1.030 (1.005-1.025); UMIC TRIGGER UACC YES; Urine Blood Negative (Negative); Urine Ketones Negative (Negative); Urine Protein Negative (Neg-Trace)
[2022-09-21 14:56] LABS: Bacteria Urine None Seen (None Seen); Hyaline Casts Urine 0-2 /LPF (0-2); RBC Urine 0-2 /HPF (0-2); Squamous Epithelial Cell Urine 0-2 /HPF (0-2); WBC Urine 0-5 /HPF (0-5)
[2022-09-21 15:04] VITALS: BP 131/77; PULSE 61; RESP 18; TEMP 37.1; O2SAT 97
--- NOTE | 2022-09-21 15:37 | P.DS_ITS ---
DS: Providers Provider Date of Service: 09/21/22 Date of admission: 09/20/22 17:49 Date of discharge: 09/21/22 Primary care physician: Lu Goel MD Consults: 09/21/22 13:53 Consult to Cardiology Routine Consulting Provider: Humberto Narvaez Reason for consultation: chest pain Has provider been notified: No Attending physician on discharge: Ana Cordon DS: Diagnosis Discharge Diagnosis (1) Chest pressure: Status: Acute (2) Atrial fibrillation with RVR: Status: Acute (3) ST segment changes on electrocardiogram: Status: Acute DS: Summary Hospital Course Hospital Course: 62-year-old male with a PMH significant for?AFib on Eliquis, HLD, HTN, [id number] DM, GERD, and obstructive sleep apnea who presents to the ED with chest pressure and palpitations for one hour. 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 Pt could feel his heart racing if he placed hand on chest. He rested for a bit, felt better, then went back to work when symptoms almost immediately returned and persisted despite additional rest. EMS called and pt taken to ED where he was found to be in AFib with RVR of 133.? Patient was initially given 5 mg of metoprolol to little effect; was given 2 additional doses of 5 mg which brought heart rate into the 90s and patient had resolution of his chest pain/pressure.? First troponin negative at 21.4 with 2nd flat at 24.0.? Repeat EKG showed ST changes in 1/aVL and V5/V6. Cardiology consult suggested EKG changes may be secondary to early repolarization: patient was given home dose of metoprolol 25 mg and flecainide 150 mg in an attempt to chemically convert to normal sinus rhythm.? Patient otherwise hemodynamically stable with all other labs unremarkable. CXR clear. UA clear. 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 Pt's father's side of the family has an extensive history of heart problems, including AFib, CAD, and ACS. Pt states he had two stress tests 2-3 years ago -- one exercise and one nuclear -- and both wer negative.? Patient will be admitted to telemetry for further evaluation and treatment for symptomatic chronic AFib with RVR. hospital course : Symptomatic chronic AFib with RVR, chest tightness , ekg changes : Possible chest tightness and EKG changes related to AFib. Patient was given IV metoprolol as well as flecainide in ED, as well as started on p.o. metoprolol last night and subsequently patient overnight NSR, Chest tightness improved, repeated EKG-st changes resolved. Discussed with the Cardiology: Recommended to adjustment Toprol to 50 mg daily, add flecainide 50 mg b.i.d. Cardiology may arrange their own appointment outpatient. mild boderline elevated tsh 4.5 range, check a free T4 and t3 out patiently and consider outpatient endocrinology evaluation if needed as per pcp. plan: Metoprolol is adjusted to 50 mg daily, flecainide is 50 mg p.o. b.i.d. mild boderline elevated tsh 4.5 range, check a free T4 and t3 out patiently and consider outpatient endocrinology evaluation if needed as per pcp. Cardiology will arrange outpatient appointment. Discussed with Cardiology in detail length they may arrange their own appointment. Above management discussed the patient and his in detail length both understand and in agreement with the above plan, time spent 50 minute. Time Spent with Patient Time attestation: Total time managing care of this patient today ____ minutes. Discharge coordination time: Greater than 30 minutes Quality: Safe Use of Opioids Does Pt have an Active Cancer Diagnosis on the Problem List?: No Quality: Stroke Does the patient have a stroke diagnosis?: No Physical Exam Vital Signs: Vital Signs: Last Vital Signs Temp 98.7 F 09/21/22 15:04 Pulse 61 09/21/22 15:04 Resp 18 09/21/22 15:04 BP 131/77 09/21/22 15:04 Pulse Ox 97 09/21/22 15:04 O2 Del Method 09/21/22 15:04 BMI result Body Mass Index 34.4 Appearance: Alert.? Oriented X3.? not in distress.? Eyes: Pupils equal, round and reactive to light.? Sclera nonicteric.? ENT: Pharynx normal.? Moist mucous membranes. cvs: rrr, [id number]. res: clear to auscultation ,no rhonchii or wheezing abd: no rebound or guarding ,nt, bs present. ext pulses present , no cyanosis . neuro: axo3 , nonfocal. DS: Data Data Completed and Pending Labs on day of discharge: Laboratory Results - last 24 hr 09/20/22 09/20/22 09/20/22 12:41 20:45 21:15 POC Glucose 138 H Troponin I High Sens 18.8 TSH 4.54 H Urine Color Urine Appearance Urine pH Ur Specific [place] Urine Protein Urine Glucose (UA) Urine Ketones Urine Blood Urine Nitrite Ur Leukocyte Esterase Urine RBC Urine WBC Ur Squamous Epith Cells Urine Bacteria Hyaline Casts 09/21/22 09/21/22 09/21/22 07:40 11:04 14:26 POC Glucose 202 H 253 H Troponin I High Sens TSH Urine Color Yellow Urine Appearance Clear Urine pH 6.0 Ur Specific [place] >= 1.030 H Urine Protein Negative Urine Glucose (UA) >=1000 H Urine Ketones Negative Urine Blood Negative Urine Nitrite Negative Ur Leukocyte Esterase Negative Urine RBC 0-2 Urine WBC 0-5 Ur Squamous Epith Cells 0-2 Urine Bacteria None Seen Hyaline Casts 0-2 Imaging Chest x-ray: Radiologist's impression: ITS Impressions Chest X-Ray 09/20/22 12:57 IMPRESSION: * Clear lungs. Discharge Plan Discharge Anticipated Discharge Date/Time: 09/21/22 15:32 Patient Disposition: Home, Self-Care Discharge Diagnosis: afib,chest pain Referrals: Lu Goel MD [Primary Care Provider] - 1 Week Discharge Medications: New flecainide 50 mg tablet 50 mg PO Q12H Qty: 60 0RF metoprolol succinate [Toprol XL] 50 mg tablet extended release 24 hr 50 mg PO DAILY Qty: 60 0RF Continued Eliquis 5 mg tablet 5 mg PO BID Qty: 180 3RF aspirin 325 mg Tablet 325 mg PO DAILY PRN (Reason: Migraine Headache) Januvia 25 mg tablet 1 tab PO BEDTIME melatonin 10 mg Tablet 10 mg PO BEDTIME losartan 50 mg tablet 50 mg PO BEDTIME flecainide 150 mg tablet 150 mg PO BID PRN (Reason: atrial fibrillation) atorvastatin 20 mg tablet 20 mg PO DAILY allopurinol 300 mg tablet 300 mg PO DAILY metformin 500 mg tablet 1,000 mg PO BID pantoprazole 40 mg tablet,delayed release (DR/EC) 40 mg PO DAILY@0630 magnesium oxide 400 mg (241.3 mg magnesium) tablet 400 mg PO BID levetiracetam 500 mg tablet 1,000 mg PO BID Discontinued metoprolol succinate 25 mg tablet extended release 24 hr 25 mg PO DAILY Qty: 90 3RF Discharge Orders: Discharge Order (Routine); Ordered 09/21/22 Ordered By: Ana Cordon Diet: Advance to usual diet Activity on Discharge: As tolerated Stand Alone Forms: Patient Portal Discharge page Care Plan Goals: Symptomatic chronic AFib with RVR, chest tightness , ekg changes : Possible chest tightness and EKG changes related to AFib. Patient was given IV metoprolol as well as flecainide in ED, as well as started on p.o. metoprolol last night and subsequently patient overnight NSR, Chest tightness improved, EKG changes resolved. Discussed with the Cardiology: Recommended to adjustment Toprol to 50 mg daily, add flecainide 50 mg b.i.d. Cardiology may arrange their own appointment outpatient. Health Concerns: As above. Plan of Treatment: As above. Assessment: As above.
[2022-09-21 15:52] LABS: Glucose, Whole Blood 172 mg/dL (60-115)
== END 2022-09-21 17:03 | disposition home or self-care (01) | DRG 201 ==
LOC: HO.ED 16:59 → HO.EDOVER 19:44 → HO.IMC 19:55
PROVIDERS: Admitting Provider Student in an Organized Health Care Education/Training Program; Emergency Provider Student in an Organized Health Care Education/Training Program; PCP Family Medicine; Visit Provider Internal Medicine
DX: I48.20 Chronic atrial fibrillation, unspecified (principal); E11.9 Type 2 diabetes mellitus without complications; G47.33 Obstructive sleep apnea (adult) (pediatric); K21.9 Gastro-esophageal reflux disease without esophagitis; M10.9 Gout, unspecified; E66.9 Obesity, unspecified; Z68.34 Body mass index [BMI] 34.0-34.9, adult; E78.5 Hyperlipidemia, unspecified; Z20.822 Contact with and (suspected) exposure to COVID-19; Z79.01 Long term (current) use of anticoagulants; Z79.82 Long term (current) use of aspirin; Z79.84 Long term (current) use of oral hypoglycemic drugs; Z79.899 Other long term (current) drug therapy
CPT/HCPCS: 36415; 71045; 80053; 81001; 82947; 84443; 84484; 85025; 85610; 87635; 93005; 96374; 96376; 99222; 99285

== ENCOUNTER → 2022-10-08 07:48 | Outpatient (REF) | payer BC, SELFPAY ==
--- NOTE | 2022-10-08 07:51 | CA_ITS ---
Acquisition Time: 2022-10-08 08:00:12 Total Exercise Time: 00:10:45 Test Indications: CP Medications: SEE H Protocol: TYRESE Max HR: 127 BPM 80% of Pred: 157 BPM Max BP: 176/054 mmHG Max Work Load: 12.7 METS Exercise stress test using Tyrese protocol, total of 10 min 45 secf. METS 12.70 and TAPHR up to 80 %. Pt tolerated well, no SOB, no CP. EKG with occasional PAC's no ischemic changes seen during exercise or in recovery. Normotensive response to exercise. Test reviewed with Dr. Narvaez. Referred By: Baltazar Isaac Overread By: Kaitlyn Greenberg NP
== END ==
LOC: HO.CARD 07:48
PROVIDERS: PCP Family Medicine; Visit Provider Internal Medicine Cardiovascular Disease
DX: R07.9 Chest pain, unspecified (principal)
CPT/HCPCS: 93017

== ENCOUNTER → 2022-10-15 09:17 | Outpatient (BNVA) | payer BC, SELFPAY | PROVIDERS: PCP Family Medicine; Referring Provider Family Medicine; Visit Provider Internal Medicine Cardiovascular Disease | DX: I48.0 Paroxysmal atrial fibrillation (principal); R07.9 Chest pain, unspecified; I10 Essential (primary) hypertension | CPT/HCPCS: 93005 ==

== ENCOUNTER 2022-10-24 06:49 | Outpatient (REF) | payer BC, SELFPAY ==
[2022-10-24 08:06] LABS: Anion Gap 16 (12-20); Blood Urea Nitrogen 18 mg/dL (9-16); Calcium 9.4 mg/dL (8.4-10.2); Carbon Dioxide 27 mmol/L (22-29); Chloride 103 mmol/L (96-108); Estimated Glomerular Filt Rate > 60; Glucose Random 172 mg/dL (60-115); Potassium 4.6 mmol/L (3.3-5.1); Sodium 141 mmol/L (135-145)
== END 2022-10-24 06:50 | disposition home or self-care (01) ==
LOC: HO.LAB 06:49
PROVIDERS: PCP Family Medicine; Visit Provider Internal Medicine Cardiovascular Disease
DX: R07.9 Chest pain, unspecified (principal); I48.0 Paroxysmal atrial fibrillation; I10 Essential (primary) hypertension
CPT/HCPCS: 36415; 80048

== ENCOUNTER 2022-11-10 07:14 | Outpatient (REF) | payer BC, SELFPAY ==
[2022-11-10 07:21] LABS: MANUAL DIFF FLAG NO
[2022-11-10 07:45] LABS: Prothrombin Time 11.4 SEC (10.0-13.1)
[2022-11-10 08:05] LABS: Basophils Absolute Auto 0.1 X10*3/uL (0.0-0.2); Basophils Percent Auto 1.1 % (0-2); Eosinophils Absolute Auto 0.5 X10*3/uL (0.0-0.4); Eosinophils Percent Auto 6.1 % (0-4); Hematocrit 45.5 % (42.0-52.0); Hemoglobin 14.8 g/dl (14.0-18.0); Imm Gran Abs Auto 0.04 X10*3/uL (0.00-0.03); Imm Gran Pct Auto 0.5 % (0.0-0.4); Lymphocytes Absolute Auto 2.7 X10*3/uL (1.2-4.9); Lymphocytes Percent Auto 32.8 % (20-40); Mean Corpuscular HGB Conc 32.5 g/dl (31.0-36.0); Mean Corpuscular Volume 92.1 fL (80.0-98.0); Mean Platelet Volume 10.7 fL (9.4-12.4); Monocytes Absolute Auto 0.7 X10*3/uL (0.1-1.2); Monocytes Percent Auto 8.4 % (2-11); Neutrophils Absolute Auto 4.2 x10*3/uL (2.0-8.3); Neutrophils Percent Auto 51.1 % (45-73); Platelet Count 240 X10*3/uL (160-400); Red Blood Count 4.94 X10*6/uL (4.60-5.80); Red Cell Distribution Width 13.5 % (11.0-16.0); White Blood Count 8.3 X10*3/uL (4.8-10.8)
[2022-11-10 08:24] LABS: Anion Gap 17 (12-20); Blood Urea Nitrogen 18 mg/dL (9-16); Calcium 9.7 mg/dL (8.4-10.2); Carbon Dioxide 24 mmol/L (22-29); Chloride 104 mmol/L (96-108); Estimated Glomerular Filt Rate > 60; Glucose Random 167 mg/dL (60-115); Potassium 4.6 mmol/L (3.3-5.1); Sodium 140 mmol/L (135-145)
== END 2022-11-10 07:15 | disposition home or self-care (01) ==
LOC: HO.LAB 07:14
PROVIDERS: Visit Provider Internal Medicine Cardiovascular Disease
DX: R07.89 Other chest pain (principal); I48.91 Unspecified atrial fibrillation
CPT/HCPCS: 36415; 80048; 85025; 85610

== ENCOUNTER 2022-12-05 13:41 | Outpatient (REF) | payer BC, SELFPAY ==
[2022-12-05 14:08] VITALS: BMI 34.2
[2022-12-05 14:09] VITALS: BP 149/72; PULSE 54; RESP 16; TEMP 36.3; O2SAT 96
[2022-12-05 14:40] VITALS: BP 149/73; PULSE 53; RESP 16
--- NOTE | 2022-12-05 14:41 | PM.OP ---
Brief Operative Note Date of Service: 12/05/22 Pre-op diagnosis: Implantable loop recorder in place Post-op diagnosis: same Procedure: Removal of implantable loop recorder Implants: After obtaining full informed consent patient brought to the minor surgery suite. Patient was then laid on the operating table in supine position. The precordial area was then prepped and draped in sterile fashion. Patient was then given 2% lidocaine with epinephrine intradermally and subcutaneously. A small incision was made at the head of the device. The device was then removed after some blunt dissection with help of a Kelsie forcep. The wound was then closed with Steri-Strips and pressure dressing applied. Surgeon: Humberto Narvaez MD Anesthesia: local Was an Waste Reduction Coordinator used for this Procedure?: No Waste Reduction Coordinator: Lincoln Martin Estimated blood loss (mL): 2 Pathology: none sent Condition: stable Disposition: same day
== END 2022-12-05 13:42 | disposition home or self-care (01) ==
LOC: HO.MS 13:41
PROVIDERS: PCP Family Medicine; Visit Provider Internal Medicine Cardiovascular Disease
PROC: (CPT 33286; principal; 2022-12-05 14:30)
DX: Z95.818 Presence of other cardiac implants and grafts (principal)
CPT/HCPCS: 33286

== ENCOUNTER → 2022-12-12 12:16 | Outpatient (BNVA) | payer BC, SELFPAY | PROVIDERS: PCP Family Medicine; Visit Provider Nurse Practitioner Family | DX: I25.10 Atherosclerotic heart disease of native coronary artery without angina pectoris (principal); I48.0 Paroxysmal atrial fibrillation | CPT/HCPCS: 93005 ==

== ENCOUNTER 2023-03-23 15:14 | Outpatient (AMB) | payer BC, SELFPAY ==
--- NOTE | 2023-03-23 15:28 | MHC.OFFVIS ---
Intake Vital Signs 03/23/23 15:32 Height 5 ft 11 in Weight 236 lb 5.369 oz BMI 33.0 BP 120/72 Blood Pressure Location Lt brachial Position Sitting Pulse 66 Pulse Source Monitor Intake Visit Reasons: 3 mth after ILR removal Intake Note: 3 month follow up with EKG after recent ILR removal. Director Community Organization Required: No Accompanied by: Self / Same As Patient Allergies No Known Allergies [No Known Allergies*] Allergy (Verified 03/23/23 15:34) Medication List - Last Reconciled 03/23/23 by Baltazar Isaac MD allopurinol 300 mg PO DAILY apixaban (Eliquis) 5 mg PO BID atorvastatin 20 mg PO DAILY dronedarone (Multaq) 400 mg PO BID levetiracetam 1,000 mg PO BID losartan 50 mg PO BEDTIME magnesium oxide 400 mg PO BID melatonin 10 mg PO BEDTIME metformin 1,000 mg PO BID metoprolol succinate ER TAKE 1 TABLET BY MOUTH DAILY pantoprazole 40 mg PO DAILY@0630 sitagliptin phosphate (Januvia) 1 tab PO BEDTIME HPI HPI Comments History of Present Illness Details 63-year-old gentleman here for follow-up. He has background of paroxysmal atrial fibrillation. He was started on flecainide for pill in the pocket approach but previously did not require flecainide. He had asymptomatic episodes of atrial fibrillation in the past. Recently went to the [facility] with chest discomfort which he described like a pressure-like feeling on his chest along with shortness of breath. He was noticed to be in AFib with RVR. It appears he was given beta-blockers for rate control and eventually just converted back to sinus rhythm. He said his symptoms improved after AFib broke. He has been on flecainide since this start at 50 mg twice a day. He is also on Toprol XL 50 mg daily. He has been taking his Eliquis regularly. Subsequent to that he was referred for exercise stress test. On treadmill he did not develop reproducible chest discomfort or significant dyspnea. His EKG also did not have any significant changes although he had baseline T-wave changes in inferior leads which effected interpretation to some extent. He is back for follow-up and he has started his work and feels reasonably well. 03/23/2023: He returns for follow-up. He has been changed to Multaq after diagnosis of coronary disease. He is saying since he started taking Multaq he is feeling more tired at times. He also feels is not refreshed in the morning and uses CPAP regularly. He had sleep study few years ago. [facility] Medical History ACS (acute coronary syndrome) Diabetes mellitus HTN (hypertension) Obstructive sleep apnea PAF (paroxysmal atrial fibrillation) Surgical History History of right knee surgery Hx of colonoscopy Hx of hernia repair Family History Father CVD (cardiovascular disease) Stroke Arteriosclerosis of bypass graft of coronary artery Diabetes CHF (congestive heart failure) Mother No problems noted. Social History Household Members: Spouse Housing: House Do you presently have visiting nurse or other home services: No Alcohol intake: current Alcohol intake frequency: holidays/special occasions only Patient Tobacco Use Status: Never used Tobacco service: Yes Current occupational status: employed Review of Systems Const Denies weakness ENT Denies dizziness Card Denies chest pain, Denies chest pain with activity, Denies syncope, Denies rapid heart rate, Denies pedal edema, Denies edema, Denies leg edema, Denies lightheadedness, Denies palpitations, Denies dyspnea, Denies dyspnea on exertion and Denies orthopnea Resp Denies cough, Denies dyspnea and Denies dyspnea on exertion GI Denies hematochezia and Denies change in stool character Musc Denies abnormal gait, Denies muscle cramps, Denies muscle weakness, Denies numbness, Denies radiating pain into limb and Denies tingling Neuro Denies abnormal gait, Denies dizziness, Denies syncope, Denies numbness, Denies tingling and Denies weakness Endo Denies palpitations Physical Exam Vital Signs: Last Vital Signs Pulse 66 03/23/23 15:32 BP 120/72 03/23/23 15:32 BMI result Body Mass Index 33.0 GENERAL APPEARANCE: in no acute distress, pleasant. NECK: no carotid bruit, no jugular venous distention. SKIN: no suspicious lesions, warm and dry. HEART: no murmurs, regular rate and rhythm. LUNGS: clear to auscultation bilaterally. ABDOMEN: soft, nontender. EXTREMITIES: no edema. PERIPHERAL PULSES: equal. NEUROLOGIC: No gross deficits, AAO X 3 Office Procedures EKG Details: Sinus rhythm 66 beats per minute, normal ECG, QTC 400 milliseconds. [id number], Complete Assessment & Plan Assessment & Plan (1) CAD (coronary artery disease): Code(s): I25.10 - Atherosclerotic heart disease of [place] coronary artery without angina pectoris (2) Stable angina: Code(s): I20.8 - Other forms of angina pectoris (3) PAF (paroxysmal atrial fibrillation): Code(s): I48.0 - Paroxysmal atrial fibrillation (4) Obstructive sleep apnea: Code(s): G47.33 - Obstructive sleep apnea (adult) (pediatric) Plan [age] gentleman is here for follow-up. He has background history of paroxysmal fibrillation and coronary artery disease. He has stable angina currently. He is on apixaban for anticoagulation. He is saying since he started taking Multaq and stop flecainide he has been feeling more fatigued. He had sleep study few years ago but has not formally followed up with sleep medicine. He does not feel refreshed in the morning. These symptoms are also random. I explained to him that he will qualify for cardiac rehabilitation for stable angina. He wants to hold off on that. Will refer him to Sleep Medicine to see if he needs titration of his CPAP settings. If in fact this is related to Multaq then we need to admit him to the hospital and load him with sotalol which means admission to the hospital for 3 days which I explained to him. For now we have decided to try alternative measures before going to were sotalol loading. Thank you for allowing me to participate in the care of your patient. Please feel free to contact me if you have any questions. Coding Level of Care Code Est Pt Level 4 (91224) Diagnoses CAD (coronary artery disease) I25.10 Stable angina I20.8 PAF (paroxysmal atrial fibrillation) I48.0 Obstructive sleep apnea G47.33 CPT Codes EKG - CPT: [id number], Complete ([id number])
[2023-03-23 15:32] VITALS: BP 120/72; PULSE 66; BMI 33.0
== END 2023-03-23 15:53 | disposition home or self-care (01) ==
PROVIDERS: PCP Family Medicine; Referring Provider Family Medicine; Visit Provider Internal Medicine Cardiovascular Disease
DX: I25.118 Atherosclerotic heart disease of native coronary artery with other forms of angina pectoris (principal); I48.0 Paroxysmal atrial fibrillation; G47.33 Obstructive sleep apnea (adult) (pediatric)
CPT/HCPCS: 93010; 99214

== ENCOUNTER → 2023-03-23 15:14 | Outpatient (BNVA) | payer BC, SELFPAY | PROVIDERS: PCP Family Medicine; Referring Provider Family Medicine; Visit Provider Internal Medicine Cardiovascular Disease | DX: I48.0 Paroxysmal atrial fibrillation (principal); I20.8 Other forms of angina pectoris; E11.9 Type 2 diabetes mellitus without complications; I10 Essential (primary) hypertension; G47.33 Obstructive sleep apnea (adult) (pediatric); Z79.4 Long term (current) use of insulin | CPT/HCPCS: 93005 ==

== ENCOUNTER 2023-08-24 14:14 | Outpatient (AMB) | payer BC, SELFPAY ==
[2023-08-24 14:36] VITALS: BP 150/64; PULSE 59; BMI 35.0
--- NOTE | 2023-08-24 14:36 | MHC.OFFVIS ---
Intake Vital Signs 08/24/23 14:36 Height 5 ft 11 in Weight 250 lb 14.177 oz BMI 35.0 BP 150/64 H Blood Pressure Location Lt brachial Position Sitting Pulse 59 Pulse Source Pulse Oximeter Intake Visit Reasons: 3 mth fup Intake Note: 3 mnth f/up pt its it feeling fine. 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 Required: No Accompanied by: Self / Same As Patient Allergies No Known Allergies [No Known Allergies*] Allergy (Verified 03/23/23 15:34) Medication List - Last Reconciled 08/24/23 by Baltazar Isaac MD allopurinol 300 mg PO DAILY apixaban (Eliquis) 5 mg PO BID atorvastatin 20 mg PO DAILY dronedarone (Multaq) 400 mg PO BID levetiracetam 1,000 mg PO BID losartan 50 mg PO BEDTIME magnesium oxide 400 mg PO BID melatonin 10 mg PO BEDTIME metformin 1,000 mg PO BID metoprolol succinate ER 50 mg PO DAILY pantoprazole 40 mg PO DAILY@0630 sitagliptin phosphate (Januvia) 1 tab PO BEDTIME HPI HPI Comments History of Present Illness Details 63-year-old gentleman here for follow-up. He has background of paroxysmal atrial fibrillation. He was started on flecainide for pill in the pocket approach but previously did not require flecainide. He had asymptomatic episodes of atrial fibrillation in the past. Recently went to the [facility] with chest discomfort which he described like a pressure-like feeling on his chest along with shortness of breath. He was noticed to be in AFib with RVR. It appears he was given beta-blockers for rate control and eventually just converted back to sinus rhythm. He said his symptoms improved after AFib broke. He has been on flecainide since this start at 50 mg twice a day. He is also on Toprol XL 50 mg daily. He has been taking his Eliquis regularly. Subsequent to that he was referred for exercise stress test. On treadmill he did not develop reproducible chest discomfort or significant dyspnea. His EKG also did not have any significant changes although he had baseline T-wave changes in inferior leads which effected interpretation to some extent. He is back for follow-up and he has started his work and feels reasonably well. 03/23/2023: He returns for follow-up. He has been changed to Multaq after diagnosis of coronary disease. He is saying since he started taking Multaq he is feeling more tired at times. He also feels is not refreshed in the morning and uses CPAP regularly. He had sleep study few years ago. 08/24/23: He returns for follow-up. He is undergoing colonoscopy on Thursday. He is going to hold apixaban for 3 days. He is taking Multaq and has not had any further palpitations. Blood pressure initially was elevated but repeat blood pressure is 130/60. Taking medications regularly otherwise. Overall clinically stable. [facility] Medical History ACS (acute coronary syndrome) Diabetes mellitus HTN (hypertension) Obstructive sleep apnea PAF (paroxysmal atrial fibrillation) Surgical History History of right knee surgery Hx of colonoscopy Hx of hernia repair Family History Father CVD (cardiovascular disease) Stroke Arteriosclerosis of bypass graft of coronary artery Diabetes CHF (congestive heart failure) Mother No problems noted. Social History Household Members: Spouse Housing: House Do you presently have visiting nurse or other home services: No Alcohol intake: current Alcohol intake frequency: holidays/special occasions only Patient Tobacco Use Status: Never used Tobacco service: Yes Current occupational status: employed Physical Exam Vital Signs: Last Vital Signs Pulse 59 08/24/23 14:36 BP 150/64 H 08/24/23 14:36 BMI result Body Mass Index 35.0 GENERAL APPEARANCE: in no acute distress, pleasant. NECK: no carotid bruit, no jugular venous distention. SKIN: no suspicious lesions, warm and dry. HEART: no murmurs, regular rate and rhythm. LUNGS: clear to auscultation bilaterally. ABDOMEN: soft, nontender. EXTREMITIES: no edema. PERIPHERAL PULSES: equal. NEUROLOGIC: No gross deficits, AAO X 3 Assessment & Plan Assessment & Plan (1) PAF (paroxysmal atrial fibrillation): Code(s): I48.0 - Paroxysmal atrial fibrillation Plan Pleasant 63 gentleman is here for follow-up. He has paroxysmal atrial fibrillation. He is managed with Multaq and apixaban at this point. He is going to hold apixaban for 3 days before colonoscopy. He should continue rest of his medications as before. Repeat blood pressure in the office manually was 130/60. We will see him back in 3 months. Thank you for allowing me to participate in the care of your patient. Please feel free to contact me if you have any questions. Coding Level of Care Code Est Pt Level 4 (40961) Diagnoses PAF (paroxysmal atrial fibrillation) I48.0
== END 2023-08-24 15:20 | disposition home or self-care (01) ==
PROVIDERS: PCP Family Medicine; Visit Provider Internal Medicine Cardiovascular Disease
DX: I48.0 Paroxysmal atrial fibrillation (principal)
CPT/HCPCS: 99214

== ENCOUNTER → 2023-08-24 14:14 | Outpatient (BNVA) | payer BC, SELFPAY | PROVIDERS: PCP Family Medicine; Visit Provider Internal Medicine Cardiovascular Disease ==

== ENCOUNTER 2023-08-28 10:30 | Day surgery (SDC) | payer BC, SELFPAY ==
[2023-08-26 14:49] VITALS: BMI 35.0
--- NOTE | 2023-08-27 09:38 | P.CONAN_ITS ---
Documented by User: Delmy Munoz NP 08/27/23 09:40 HPI - Anesthesia Eval Consult details Narrative: 63yo M for Colonoscopy Follows [facility] [place]. Stable at 08/24/23 office visit Eliquis for afib Anesthesia Pre-Procedure Meds Is the patient on any of the following meds?: Any other SGL-1 drugs or drugs that delay gastric emptying (Januvia) [facility] Active Problems Active Problems: All Active Problems (Updated 08/26/23 @ 14:50 by Sheri Larios RN) PAF (paroxysmal atrial fibrillation) (Acute) Stable angina (Acute) Visit for wound check (Acute) S/P cardiac cath (Acute) CAD (coronary artery disease) (Acute) Chest pain (Acute) Chest pressure (Acute) ST segment changes on electrocardiogram (Acute) Atrial fibrillation with RVR (Acute) Preop cardiovascular exam (Acute) Encounter for loop recorder check (Acute) Seizure (Acute) REM behavioral disorder (Acute) PAF (paroxysmal atrial fibrillation) (Acute) HTN (hypertension) (Acute) Diabetes mellitus (Acute) Obstructive sleep apnea (Acute) Past Medical History Medical History Seizures Elevated cholesterol Renal calculi Gout ACS (acute coronary syndrome) PAF (paroxysmal atrial fibrillation) HTN (hypertension) Diabetes mellitus Obstructive sleep apnea Family History Family History Father CVD (cardiovascular disease) Stroke Arteriosclerosis of bypass graft of coronary artery Diabetes CHF (congestive heart failure) Mother No problems noted. Surgical History Surgical History Hx of cardiac catheterization History of right knee surgery Hx of colonoscopy Hx of hernia repair Social History Social History Household Members: Spouse Housing: House Do you presently have visiting nurse or other home services: No Alcohol intake: current Alcohol intake frequency: holidays/special occasions only Patient Tobacco Use Status: Never used Tobacco Advance Directives: No Advance Directives Information Provided: Yes service: Yes Current occupational status: employed Meds Allergies Allergy/AdvReac Type Severity Reaction Status Date / Time No Known Allergies Allergy Verified 08/28/23 10:55 [No Known Allergies*] Home Medications Medication Instructions Recorded Confirmed Last Taken Type allopurinol 300 mg tablet 300 mg PO DAILY 05/12/20 08/26/23 09/20/22 09:00 History atorvastatin 20 mg tablet 20 mg PO DAILY 05/12/20 08/26/23 09/20/22 09:00 History magnesium oxide 400 mg (241.3 mg 400 mg PO BID 05/12/20 08/26/23 09/20/22 09:00 History magnesium) tablet metformin 500 mg tablet 1,000 mg PO BID 05/12/20 08/26/23 09/20/22 09:00 History pantoprazole 40 mg tablet,delayed 40 mg PO DAILY@0630 05/12/20 08/26/23 09/20/22 09:00 History release levetiracetam 500 mg tablet 1,000 mg PO BID 06/08/20 08/26/23 09/20/22 09:00 History losartan 50 mg tablet 50 mg PO BEDTIME 09/20/22 08/26/23 09/19/22 History melatonin 10 mg tablet 10 mg PO BEDTIME 09/20/22 08/26/23 09/19/22 History sitagliptin phosphate 25 mg tablet 1 tab PO BEDTIME 09/20/22 08/26/23 08/26/23 History (Januvia) Exam Height,Weight and Vital Signs: Height 5 ft 11 in Weight 113.852 kg Narrative Narrative: EKG 03/2023 Sinus rhythm 66 beats per minute, normal ECG, QTC 400 milliseconds. Assessment and Plan Assessment Anesthesia Assessment: Chart Reviewed Documented by User: Briseida Perez MD 08/28/23 11:27 HPI - Anesthesia Eval Consult details Narrative: 63yo M for Colonoscopy Follows [facility] [place]. Stable at 08/24/23 office visit , also on januvia Eliquis for afib Anesthesia Pre-Procedure Meds If Yes to any meds - educate patient: Pt education - increased risk of aspiration and Pt education - possibility of cancelled proc at provider's discretion PMFSH Past Medical History Medical History Seizures Elevated cholesterol Renal calculi Gout ACS (acute coronary syndrome) PAF (paroxysmal atrial fibrillation) HTN (hypertension) Diabetes mellitus Obstructive sleep apnea Family History Family History Father CVD (cardiovascular disease) Stroke Arteriosclerosis of bypass graft of coronary artery Diabetes CHF (congestive heart failure) Mother No problems noted. Family history of problems with anesthesia: No Surgical History Surgical History Hx of cardiac catheterization History of right knee surgery Hx of colonoscopy Hx of hernia repair History of Problems with Anesthesia: No Social History Social History Household Members: Spouse Housing: House Do you presently have visiting nurse or other home services: No Alcohol intake: current Alcohol intake frequency: holidays/special occasions only Patient Tobacco Use Status: Never used Tobacco Advance Directives: No Advance Directives Information Provided: Yes service: Yes Current occupational status: employed Meds Allergies Allergy/AdvReac Type Severity Reaction Status Date / Time No Known Allergies Allergy Verified 08/28/23 10:55 [No Known Allergies*] Home Medications Medication Instructions Recorded Confirmed Last Taken Type allopurinol 300 mg tablet 300 mg PO DAILY 05/12/20 08/26/23 09/20/22 09:00 History atorvastatin 20 mg tablet 20 mg PO DAILY 05/12/20 08/26/23 09/20/22 09:00 History magnesium oxide 400 mg (241.3 mg 400 mg PO BID 05/12/20 08/26/23 09/20/22 09:00 History magnesium) tablet metformin 500 mg tablet 1,000 mg PO BID 05/12/20 08/26/23 09/20/22 09:00 History pantoprazole 40 mg tablet,delayed 40 mg PO DAILY@0630 05/12/20 08/26/23 09/20/22 09:00 History release levetiracetam 500 mg tablet 1,000 mg PO BID 06/08/20 08/26/23 09/20/22 09:00 History losartan 50 mg tablet 50 mg PO BEDTIME 09/20/22 08/26/23 09/19/22 History melatonin 10 mg tablet 10 mg PO BEDTIME 09/20/22 08/26/23 09/19/22 History sitagliptin phosphate 25 mg tablet 1 tab PO BEDTIME 09/20/22 08/26/23 08/26/23 History (Ricky) Exam Airway Mallampati Class: II TM Dist: >3cm Neck ROM: Limited Heart: afib Lungs: cta Assessment and Plan Assessment Anesthesia Assessment: Anesthesia Plan Discussed Final Anesthetic Review Family History of Problems with Anesthesia: No History of Problems with Anesthesia: No NPO: Yes ASA Class: III Final Preanesthetic Review: No Changes in Pt Med Stat, Meds/Allgs Chart Reviewed, Consent Obtained/Reviewed and Anes Risks/Benef Reviewed Patient Risk: Intermediate Procedure Risk: Low Anesthetic Plan Anesthetic Plan: MAC: Disposition: Standard PACU
[2023-08-28 10:57] VITALS: BMI 33.5
[2023-08-28] MEDS: Lactated Ringers 1,000 ML 100 ML IVCONT (11:00)
[2023-08-28 11:13] LABS: Glucose, Whole Blood 151 mg/dL (60-115)
[2023-08-28 11:16] VITALS: BP 155/77; PULSE 70; RESP 18; TEMP 36.6; O2SAT 96
--- NOTE | 2023-08-28 12:51 | PM.OP ---
Brief Operative Note Date of Service: 08/28/23 Pre-op diagnosis: Screening Post-op diagnosis: other (Diverticulosis) Procedure: Colonoscopy to the cecum and TI Surgeon: Naif Phipps MD Anesthesia: MAC Was an Director Of Physiotherapy Services used for this Procedure?: No Estimated blood loss (mL): 0 Pathology: none sent Condition: stable Disposition: PACU
[2023-08-28 12:52] VITALS: BP 116/64; PULSE 74; RESP 16; TEMP 36.1; O2SAT 94
[2023-08-28 13:05] VITALS: BP 124/74; PULSE 67; RESP 18; TEMP 36.3; O2SAT 97
--- NOTE | 2023-08-28 13:18 | OP_ITS ---
DATE OF SERVICE: 08/28/2023 SURGEON: Naif Phipps MD INDICATIONS: The patient presents for evaluation of colorectal cancer screening and personal history of tubular adenoma of the colon. Full consent has been obtained from him for this, including risks of bleeding and perforation. PREOPERATIVE DIAGNOSIS: Colorectal cancer screening, personal history of tubular adenoma of the colon. POSTOPERATIVE DIAGNOSIS: Colorectal cancer screening, personal history of tubular adenoma of the colon, diverticulosis, and internal hemorrhoids. PROCEDURE PERFORMED: Colonoscopy to cecum and terminal ileum. ESTIMATED BLOOD LOSS: COMPLICATIONS: ANESTHESIA: Monitored anesthesia care. ASSISTANTS: SPECIMENS: DESCRIPTION OF PROCEDURE: The patient was placed in the left lateral decubitus position. The digital rectal exam revealed no abnormalities. The Olympus video pediatric colonoscope was entered into the rectum and advanced easily to the cecum. Once in the cecum, I did identify normal-appearing cecal pouch with appendiceal orifice and a normal-appearing ileocecal valve. The terminal ileum was cannulated and appeared normal. The scope was withdrawn back in the colon. The entire cecum and ileocecal valve appeared normal. The scope was then slowly withdrawn assessing all mucosal surfaces carefully. Preparation was excellent. I did not visualize any sign of polyps, colitis, nor angiodysplasia. There was a mild amount of sigmoid diverticulosis. In the rectum, scope was retroflexed visualizing internal hemorrhoids but no other pathology. The rectal mucosa appeared normal. The scope was straightened and withdrawn from the patient. He tolerated the procedure well and was returned to the recovery area in stable condition. IMPRESSION: 1. Diverticulosis. 2. Internal hemorrhoids. PLAN: I would recommend a repeat colonoscopy in 5 years for further screening. He was advised to resume his Eliquis today. In regard to his previous history of diarrhea, he does report that ever since having decrease the metformin from 1 g b.i.d. to 500 mg b.i.d., his diarrhea has completely resolved. Therefore I did not do biopsies to check for microscopic colitis. He never did the blood work for celiac disease, but at this point, I would hold off on that since he is doing better. He will see me in 5 years for a followup colonoscopy but was advised to call sooner as needed. This has been discussed with his MD JAIME Haskins/BINDU / [id number]
== END 2023-08-28 13:50 | disposition home or self-care (01) ==
PROVIDERS: PCP Family Medicine; Visit Provider Internal Medicine
PROC: 0DJD8ZZ Inspection of Lower Intestinal Tract, Via Natural or Artificial Opening Endoscopic (ICD-10-PCS; CPT 45378; principal; 2023-08-28 12:10)
DX: Z12.11 Encounter for screening for malignant neoplasm of colon (principal); K57.30 Diverticulosis of large intestine without perforation or abscess without bleeding; K64.8 Other hemorrhoids; Z86.010 Personal history of colon polyps; E11.9 Type 2 diabetes mellitus without complications; I10 Essential (primary) hypertension; E78.5 Hyperlipidemia, unspecified; I48.0 Paroxysmal atrial fibrillation; Z79.01 Long term (current) use of anticoagulants; Z79.84 Long term (current) use of oral hypoglycemic drugs; Z79.02 Long term (current) use of antithrombotics/antiplatelets; Z79.899 Other long term (current) drug therapy
CPT/HCPCS: 45378; 82947; J2704

== ENCOUNTER 2023-12-31 06:45 | Emergency (ER) | payer BC, SELFPAY ==
[2023-12-31] VITALS (11 sets, daily range): BP systolic 119–137; BP diastolic 45–79; PULSE 64–94; RESP 16–22; TEMP 36.6; O2SAT 96–98; BMI 33.0; BMI 36.6
--- NOTE | ~2023-12-31 | XR_ITS ---
EXAMINATION: XR CHEST CLINICAL INFORMATION: Pain COMPARISON: 09/20/2022 TECHNIQUE: Frontal view of the chest was obtained. FINDINGS: Low lung volumes. Given this there is no convincing evidence for an acute process. No obvious failure or infiltrate. No effusion. The cardiac silhouette is comparable. The hilar regions do not appear pathologically enlarged. XR/XR chest 1V IMPRESSION: Low lung volumes. No convincing evidence for an acute process
--- NOTE | ~2023-12-31 | CT_ITS ---
EXAMINATION: CT HEAD WITHOUT CONTRAST CLINICAL INFORMATION: Possible seizure confusion COMPARISON: CT head from 10/24/2016 TECHNIQUE: Contiguous axial imaging was performed from the skull base to vertex without intravenous administration of contrast. This CT examination was performed using dose optimization techniques as appropriate, variously including the following: *Automated exposure control *Adjustment of mA and/or kV according to patient size (this includes techniques or standardized protocols for targeted exams where dose is matched to indication/reason for exam; i.e. extremities or head) *Use of iterative reconstruction technique DLP: 770.77 mGy-cm FINDINGS: There is no evidence of acute intracranial hemorrhage or territorial infarction. No abnormal mass effect or midline shift is seen. Crenshaw to white matter differentiation is well preserved. No extra-axial fluid collections are identified. The ventricles are normal in size. There is no abnormal attenuation within the brain parenchyma. The osseous structures and soft tissues are normal. Near opacification of the left sphenoid sinus. The mastoid air cells and visualized portions of the paranasal sinuses are well aerated. CT/CT cervical spine wo IV con IMPRESSION: 1. No acute intracranial pathology. 2. Near opacification of the left sphenoid sinus. EXAMINATION: Noncontrast CT scan of the cervical spine. INDICATION: Possible seizure confusion COMPARISON: None. TECHNIQUE: Helical, multidetector axial images were obtained from the occiput to the upper thorax. Coronal and sagittal reformats of the cervical spine were provided for interpretation. DLP: 504.87 mGy-cm FINDINGS: No acute fractures or dislocations of the cervical spine are seen. Straightening the normal cervical curvature. Multilevel degenerative changes. Anatomic alignment and positioning of the vertebral bodies and posterior elements is noted. The atlantoaxial joint and craniovertebral articulations are normal without evidence of subluxation. There is no prevertebral soft tissue swelling. The visualized portions of the thyroid are unremarkable. IMPRESSION: 1. No acute visible fracture or dislocation. 2. Straightening the normal cervical curvature. 3. Multilevel degenerative changes.
--- NOTE | 2023-12-31 06:46 | ECG_ITS ---
Test Reason : CP Blood Pressure : / mmHG Vent. Rate : 090 BPM Atrial Rate : 090 BPM P-R Int : 152 ms QRS Dur : 102 ms QT Int : 354 ms P-R-T Axes : 033 -11 021 degrees QTc Int : 433 ms Normal sinus rhythm Inferior infarct , age undetermined Abnormal ECG When compared with ECG of 21-SEP-2022 14:19, No significant change was found Referred By: Annabelle Monroe Electronically Signed By:JENNIFER MEJIA MD
--- NOTE | 2023-12-31 06:46 | ED_ITS ---
HPI - General Adult General Chief complaint: Chest Pain Stated complaint: chest pressure Time Seen by Provider: 12/31/23 06:46 Source: patient, family (patient's ) and EMS Mode of arrival: EMS Limitations: no limitations History of Present Illness ED Provider: Annabelle Monroe PA-C HPI narrative: Patient is a 63 year old assigned male at with a history of atrial fib on eliquis, HTN, DM, JOHN, and CAD presenting to the emergency department today with left sided chest pain after a night terror. Patient states that he woke up at 0300 after a night terror, and began to have crushing left sided chest pain. Patient states that the pain is still present at an 8/10. Patient states that he was given ASA by EMS on the way in. Patient denies any dizziness, lightheadedness, abdominal pain, nausea, vomiting, fever, chills, blurry vision, double vision, loss of vision, difficulty breathing, shortness of breath, back pain, night sweats, pain with urination, increased urinary frequency, increased urinary urgency, blood in his urine or stool, syncope or a near syncopal episode, recent trauma or falls, bowel incontinence, bladder incontinence, bowel retention, bladder retention, or any other complaints at this time. Onset (ago): hour(s) Location: chest Radiation: non-radiation Severity: moderate Severity scale (1-10): 8 Quality: aching and constant Pain Consistency: constant Relieving factors: none Exacerbating factors: none Associated symptoms: chest pain Treatments prior to arrival: aspirin (given by EMS) Related Data Home Medications ?Medication ?Instructions ?Recorded ?Confirmed allopurinol 300 mg tablet 300 mg PO DAILY 05/12/20 08/26/23 atorvastatin 20 mg tablet 20 mg PO DAILY 05/12/20 08/26/23 magnesium oxide 400 mg (241.3 mg 400 mg PO BID 05/12/20 08/26/23 magnesium) tablet metformin 500 mg tablet 1,000 mg PO BID 05/12/20 08/26/23 pantoprazole 40 mg tablet,delayed 40 mg PO DAILY@0630 05/12/20 08/26/23 release levetiracetam 500 mg tablet 1,000 mg PO BID 06/08/20 08/26/23 losartan 50 mg tablet 50 mg PO BEDTIME 09/20/22 08/26/23 melatonin 10 mg tablet 10 mg PO BEDTIME 09/20/22 08/26/23 sitagliptin phosphate 25 mg tablet 1 tab PO BEDTIME 09/20/22 08/26/23 (Ricky) Previous Rx's ?Medication ?Instructions ?Recorded apixaban 5 mg tablet (Eliquis) 5 mg PO BID #180 tabs 10/09/21 dronedarone 400 mg tablet (Multaq) 400 mg PO BID #180 tabs 02/03/23 metoprolol succinate 50 mg 50 mg PO DAILY #90 tabs 07/27/23 tablet,extended release 24 hr Allergies Allergy/AdvReac Type Severity Reaction Status Date / Time No Known Allergies Allergy Verified 12/31/23 06:55 [No Known Allergies*] Review of Systems 2 Constitutional: Constitutional: Reports no additional constitutional complaints, Denies chills, Denies fever(s) and Denies night sweats Eyes: Eyes: Reports no additional eye complaints, Denies blurry vision, Denies change in vision, Denies diplopia, Denies eye discharge, Denies loss of vision and Denies eye pain ENT: Denies dizziness Cardiovascular: Cardiovascular: Reports no additional cardiovascular complaints, Reports chest pain, Denies lightheadedness, Denies Loss of Consciousness and Denies dyspnea Respiratory: Respiratory: Reports no additional respiratory complaints and Denies dyspnea Gastrointestinal: Gastrointestinal: Reports no additional gastrointestinal complaints, Denies abdominal pain, Denies melena, Denies hematochezia, Denies change in bowel habits and Denies change in stool character Genitourinary: Genitourinary: Reports no additional male genitourinary complaints, Denies hematuria, Denies oliguria, Denies difficulty urinating, Denies dysuria, Denies urinary frequency, Denies urinary hesitancy, Denies urinary incontinence and Denies urinary urgency Musculoskeletal: Musculoskeletal: Reports no additional musculoskeletal complaints, Denies numbness and Denies tingling Neurologic: Denies dizziness, Denies loss of vision, Denies numbness and Denies tingling Psychiatric: Psychiatric: Reports no additional psychiatric complaints Endocrine: Endocrine: Reports no additional endocrine complaints Hematologic/Lymphatic: Hematologic/Lymphatic: Reports no additional hematologic/lymphatic complaints Allergic/Immunologic: Allergic/Immunologic: Reports no additional allergic/immunologic complaints PMFSH Past Medical History Attestation statement: The following information was validated with the patient. (all information validated with the patient's ) Source: old records reviewed, obtained from family (patient's provided additional history and confirmed the history provided by the patient) and nursing notes reviewed Medical History Seizures Elevated cholesterol Renal calculi Gout ACS (acute coronary syndrome) PAF (paroxysmal atrial fibrillation) HTN (hypertension) Diabetes mellitus Obstructive sleep apnea Surgical History Hx of cardiac catheterization History of right knee surgery Hx of colonoscopy Hx of hernia repair Family History Family History Father CVD (cardiovascular disease) Stroke Arteriosclerosis of bypass graft of coronary artery Diabetes CHF (congestive heart failure) Mother No problems noted. Social History Social History Household Members: Spouse Housing: House Do you presently have visiting nurse or other home services: No Alcohol intake: current Alcohol intake frequency: holidays/special occasions only Patient Tobacco Use Status: Never used Tobacco Advance Directives: No Advance Directives Information Provided: Yes Do you have a plan to hurt others: No Plan service: Yes Current occupational status: employed Physical Exam ED Vital Signs: Vital Signs - 24 hr 12/31/23 06:53 12/31/23 07:55 12/31/23 08:31 Temperature 98 F Pulse Rate 90 73 Pulse Rate [Apical] 77 Respiratory Rate 22 H Blood Pressure 133/79 129/69 Pulse Oximetry 96 Oxygen Delivery Method Nasal Cannula Oxygen Flow Rate 12/31/23 08:31 12/31/23 08:49 12/31/23 08:50 Temperature Pulse Rate 77 76 Pulse Rate [Apical] Respiratory Rate 16 16 16 Blood Pressure 120/65 119/56 L Pulse Oximetry 96 96 Oxygen Delivery Method Nasal Cannula Nasal Cannula Oxygen Flow Rate 2 2 12/31/23 10:01 12/31/23 10:06 12/31/23 10:26 Temperature Pulse Rate 64 67 64 Pulse Rate [Apical] Respiratory Rate 18 18 Blood Pressure 125/56 L 137/62 136/63 Pulse Oximetry 97 97 Oxygen Delivery Method Nasal Cannula Nasal Cannula Oxygen Flow Rate 2 2 12/31/23 10:54 12/31/23 11:09 Temperature Pulse Rate 64 73 Pulse Rate [Apical] Respiratory Rate 18 Blood Pressure 133/45 L 133/64 Pulse Oximetry 97 Oxygen Delivery Method Nasal Cannula Oxygen Flow Rate 2 BMI result Body Mass Index 36.6 Const General: cooperative, no acute distress, alert and awake Nutritional Appearance: well nourished Orientation/consciousness: patient oriented x3 Limitations: no limitations HENMT Head: Yes normal to inspection and Yes atraumatic Ears: hearing grossly normal bilaterally and external ears normal General nose exam: Normal external nose present, no nasal discharge noted and no epistaxis Face and sinus: Yes normal facial exam, No abrasion and No laceration Mouth: Normal oral and palatal mucosa present, no drooling and no muffled voice Eyes General: appearance normal, both eyes and all related structures Periorbital: periorbital findings normal Eyelids: Yes eyelids normal Conjunctivae: conjunctivae normal Pupils: Equal, round and reactive pupils present EOM: EOMs intact bilaterally Neck Neck: Yes normal visual inspection, Yes full ROM and Yes no lymphadenopathy Chest Chest palpation & inspection: normal inspection of the chest Resp Effort & Inspection: normal respiratory effort and able to speak in complete sentences Cardio Rate: regular rate Rhythm: regular rhythm GI Inspection: Yes normal to inspection Neuro General: patient oriented x3 and moves all extremities Cranial nerves: Yes Equal, round and reactive pupils present Cognition (Neuro): normal cognition Motor exam (neuro): 5/5 motor strength present throughout Sensory Exam: Normal double simultaneous stimulation for sensation Coordination: [id number] test normal Extrem General: Yes normal to inspection, Yes full ROM and Yes capillary refill normal Psych Appearance: grossly normal Mental Status: mental status grossly normal Affect: normal affect Attitude: cooperative Thought process: Normal thought process present Thought content: Normal thought content present Insight: Good insight present (Psych) Medications Administered Generic Name Dose Route Start Last Admin Trade Name Freq PRN Reason Stop Dose Admin Nitroglycerin/Dextrose 100 mg in 250 mls @ 0 mls/hr 12/31/23 09:30 12/31/23 10:54 Nitroglycerin/D5w IVCONT 20 mcg/min .Q0M JOVANNY 3 mls/hr Titration Protocol Per Protocol Heparin Sodium/Sodium Chloride 25,000 unit in 250 mls @ 0 mls/hr 12/31/23 10:00 12/31/23 10:23 Heparin Sodium,Porcine/1/2ns IVCONT 8.17 units/kg/hr .Q0M JOVANNY 10 mls/hr Administration Protocol Per Protocol Nitroglycerin 0.4 mg 12/31/23 07:41 12/31/23 07:55 Nitroglycerin 0.4 Mg Tab.Subl SUBLINGUAL 0.4 mg Q5MX3 PRN Administration Chest Pain Discontinued Medications Generic Name Dose Route Start Last Admin Trade Name Keisha PRN Reason Stop Dose Admin Heparin Sodium (Porcine) 4,000 unit 12/31/23 09:38 12/31/23 10:23 Heparin Sodium,Porcine 5,000 Unit/Ml Vial IVPUSH 12/31/23 09:39 4,000 unit ONCE ONE Administration Sodium Chloride 1,000 mls @ 999 mls/hr 12/31/23 08:45 12/31/23 10:16 Ns IV 12/31/23 09:45 Infused .Q1H1M JOVANNY Infusion Lorazepam 1 mg 12/31/23 07:41 12/31/23 07:55 Lorazepam 2 Mg/Ml Vial IVPUSH 12/31/23 07:42 1 mg ONCE ONE Administration Morphine Sulfate 4 mg 12/31/23 08:33 12/31/23 08:50 Morphine Sulfate 4 Mg/Ml Cartridge IVPUSH 12/31/23 08:34 4 mg ONCE ONE Administration Protocol Medical Decision Making Medical Decision Making MDM Narrative: Patient is a 63 year old assigned male at with a history of atrial fib on eliquis, HTN, DM, JOHN, and CAD presenting to the emergency department today with left sided chest pain after a night terror. Patient's physical exam showed an individual with active left sided chest pain but was otherwise unremarkable. Patient's blood work showed an initial trop of 116.6 but were otherwise unremarkable. Patient's initial EKG was unremarkable. Patient's chest x-ray showed no acute process. I consulted with Dr. Isaac, who is the patient's rooter operator. He recommended giving SL nitro, a dose of an IV benzodiazepine, a repeat EKG, and a 1 hour repeat troponin. Patient's repeat EKG was unremarkable. Patient's repeat troponin at 1 hour was 232. I spoke again to Dr. Isaac who recommended getting a third trop in 1 hour, giving a dose of morphine, getting a 3rd EKG, a posterior EKG, and a stat echo. Patient's repeat EKG and posterior EKGs were unremarkable. Cardiology recommended beginning a nitro drip at 10mcg/hr. Patient's 3rd troponin was 443.7. Patient's pain persisted at a 5- 6/10, left chest, and continued to feel like a squeezing sensation. Patient's echo was completed and the preliminary report noted abnormal wall movement. I spoke to cardiology again who recommended starting a heparin drip on the patient and they would coordinate a transfer to [facility] for possible cardiac cath. Dr. Isaac spoke to Dr. Echevarria and [facility] who agreed to accepting this patient to the PCU pending the opening of a medical laboratory technologist room. I explained my physical exam findings as well as all test results to the patient and the patient's . I answered all questions asked by the patient and the patient's . Patient and the patient's verbalized agreement and understanding with this treatment plan and transfer to [facility]. Differential Diagnosis Differential Diagnoses: The differential diagnosis associated with the presentation includes NSTEMI STEMI ACS Unstable angina Admission/Observation Consideration of admission/observation: Escalation of care including admission/observation considered Patient to be transferred to [facility] Consult Healthcare Provider Management of the patient was discussed with: Overlocker (spoke with cardiology as noted in the MDM Rationale portion of this note) Lab Data [facility] [place] Lab Attestation statement: I reviewed the patient's lab results. My interpretation of these results are in the MDM Rationale portion of this note. 12/31/23 09:59 12/31/23 06:58 Labs: Lab Results 12/31/23 12/31/23 12/31/23 Range/Units 06:58 07:21 07:58 WBC 9.2 (4.8-10.8) X10*3/uL RBC 4.94 (4.60-5.80) X10*6/uL Hgb 14.6 (14.0-18.0) g/dl Hct 42.9 (42.0-52.0) % MCV 86.8 (80.0-98.0) fL MCH 29.6 (27.0-33.0) pg MCHC 34.0 (31.0-36.0) g/dl RDW 13.2 (11.0-16.0) % Plt Count 201 (160-400) X10*3/uL MPV 10.3 (9.4-12.4) fL Immature Gran % (Auto) 0.3 (0.0-0.4) % Neut % (Auto) 81.1 H (45-73) % Lymph % (Auto) 10.8 L (20-40) % [place] % (Auto) 6.6 (2-11) % Eos % (Auto) 0.8 (0-4) % Baso % (Auto) 0.4 (0-2) % Lymph # (Auto) 1.0 L (1.2-4.9) X10*3/uL [place] # (Auto) 0.6 (0.1-1.2) X10*3/uL Eos # (Auto) 0.1 (0.0-0.4) X10*3/uL Baso # (Auto) 0.0 (0.0-0.2) X10*3/uL Abs Immat Gran (auto) 0.03 (0.00-0.03) X10*3/uL Absolute Neuts (auto) 7.4 (2.0-8.3) x10*3/uL Absolute Nucleated RBC 0.000 (0.0-0.012) X10*3/uL Nucleated RBC % (auto) 0.0 (0.0-0.2) /100WBC PT 12.1 (11.1-13.3) SEC INR 1.0 (0.9-1.1) APTT 27.2 (26.0-36.8) SEC aPTT Heparin Protocol (53-77.9) SEC Sodium 137 (135-145) mmol/L Potassium 3.9 (3.3-5.1) mmol/L Chloride 106 (96-108) mmol/L Carbon Dioxide 20 L (22-29) mmol/L Anion Gap 15 (12-20) BUN 18 H (9-16) mg/dL Creatinine 1.15 (0.5-1.4) mg/dL Estim Creat Clear Calc 83.2 Estimated GFR > 60 Random Glucose 307 H (60-115) mg/dL Lactic Acid 1.8 (0.5-2.0) mmol/L Calcium 9.4 (8.4-10.2) mg/dL Magnesium 1.8 (1.6-2.6) mg/dL Total Bilirubin 0.4 (0.0-1.0) mg/dL AST 29 (5-37) U/L ALT 30 (0-40) U/L Alkaline Phosphatase 82 (39-117) U/L Troponin I High Sens 116.6 H* D 232.0 H* D (<3.5-35.0) ng/L B-Natriuretic Peptide 27 (<100) pg/mL Total Protein 6.9 (6.5-8.0) g/dL Albumin 4.1 (3.5-5.0) g/dL Influenza Type A (PCR) NEGATIVE (Negative) Influenza Type B (PCR) NEGATIVE (Negative) RSV RNA Qual (PCR) NEGATIVE (Negative) SARS-CoV-2 RNA (RT-PCR) NEGATIVE (Negative) 12/31/23 12/31/23 Range/Units 09:10 09:59 WBC 8.0 (4.8-10.8) X10*3/uL RBC 4.55 L (4.60-5.80) X10*6/uL Hgb 13.7 L (14.0-18.0) g/dl Hct 39.8 L (42.0-52.0) % MCV 87.5 (80.0-98.0) fL MCH 30.1 (27.0-33.0) pg MCHC 34.4 (31.0-36.0) g/dl RDW 13.3 (11.0-16.0) % Plt Count 186 (160-400) X10*3/uL MPV 10.0 (9.4-12.4) fL Immature Gran % (Auto) (0.0-0.4) % Neut % (Auto) (45-73) % Lymph % (Auto) (20-40) % [place] % (Auto) (2-11) % Eos % (Auto) (0-4) % Baso % (Auto) (0-2) % Lymph # (Auto) (1.2-4.9) X10*3/uL [place] # (Auto) (0.1-1.2) X10*3/uL Eos # (Auto) (0.0-0.4) X10*3/uL Baso # (Auto) (0.0-0.2) X10*3/uL Abs Immat Gran (auto) (0.00-0.03) X10*3/uL Absolute Neuts (auto) (2.0-8.3) x10*3/uL Absolute Nucleated RBC 0.000 (0.0-0.012) X10*3/uL Nucleated RBC % (auto) 0.0 (0.0-0.2) /100WBC PT 12.7 (11.1-13.3) SEC INR 1.0 (0.9-1.1) APTT (26.0-36.8) SEC aPTT Heparin Protocol 28.1 L (53-77.9) SEC Sodium (135-145) mmol/L Potassium (3.3-5.1) mmol/L Chloride (96-108) mmol/L Carbon Dioxide (22-29) mmol/L Anion Gap (12-20) BUN (9-16) mg/dL Creatinine (0.5-1.4) mg/dL Estim Creat Clear Calc Estimated GFR Random Glucose (60-115) mg/dL Lactic Acid (0.5-2.0) mmol/L Calcium (8.4-10.2) mg/dL Magnesium (1.6-2.6) mg/dL Total Bilirubin (0.0-1.0) mg/dL AST (5-37) U/L ALT (0-40) U/L Alkaline Phosphatase (39-117) U/L Troponin I High Sens 443.7 H* D (<3.5-35.0) ng/L B-Natriuretic Peptide (<100) pg/mL Total Protein (6.5-8.0) g/dL Albumin (3.5-5.0) g/dL Influenza Type A (PCR) (Negative) Influenza Type B (PCR) (Negative) RSV RNA Qual (PCR) (Negative) SARS-CoV-2 RNA (RT-PCR) (Negative) Independent Interpretation I performed an independent interpretation of an: EKG, Plain X-Ray, Ultrasound (transthoracic echo) and CT Scan Interpretation: My interpretation is in agreement with the radiologist's impression of these imaging studies. - EXAMINATION: XR CHEST CLINICAL INFORMATION: Pain COMPARISON: 09/20/2022 TECHNIQUE: Frontal view of the chest was obtained. FINDINGS: Low lung volumes. Given this there is no convincing evidence for an acute process. No obvious failure or infiltrate. No effusion. The cardiac silhouette is comparable. The hilar regions do not appear pathologically enlarged. XR/XR chest 1V IMPRESSION: Low lung volumes. No convincing evidence for an acute process Dictated By: Dorian Larson MD Signed By: Electronically signed by Dorian Larson MD 12/31/23 1053 - EXAMINATION: CT HEAD WITHOUT CONTRAST CLINICAL INFORMATION: Possible seizure confusion COMPARISON: CT head from 10/24/2016 TECHNIQUE: Contiguous axial imaging was performed from the skull base to vertex without intravenous administration of contrast. This CT examination was performed using dose optimization techniques as appropriate, variously including the following: *Automated exposure control *Adjustment of mA and/or kV according to patient size (this includes techniques or standardized protocols for targeted exams where dose is matched to indication/reason for exam; i.e. extremities or head) *Use of iterative reconstruction technique DLP: 770.77 mGy-cm FINDINGS: There is no evidence of acute intracranial hemorrhage or territorial infarction. No abnormal mass effect or midline shift is seen. [place] to white matter differentiation is well preserved. No extra-axial fluid collections are identified. The ventricles are normal in size. There is no abnormal attenuation within the brain parenchyma. The osseous structures and soft tissues are normal. Near opacification of the left sphenoid sinus. The mastoid air cells and visualized portions of the paranasal sinuses are well aerated. CT/CT head/brain wo IV con IMPRESSION: 1. No acute intracranial pathology. 2. Near opacification of the left sphenoid sinus. EXAMINATION: Noncontrast CT scan of the cervical spine. INDICATION: Possible seizure confusion COMPARISON: None. TECHNIQUE: Helical, multidetector axial images were obtained from the occiput to the upper thorax. Coronal and sagittal reformats of the cervical spine were provided for interpretation. DLP: 504.87 mGy-cm FINDINGS: No acute fractures or dislocations of the cervical spine are seen. Straightening the normal cervical curvature. Multilevel degenerative changes. Anatomic alignment and positioning of the vertebral bodies and posterior elements is noted. The atlantoaxial joint and craniovertebral articulations are normal without evidence of subluxation. There is no prevertebral soft tissue swelling. The visualized portions of the thyroid are unremarkable. IMPRESSION: 1. No acute visible fracture or dislocation. 2. Straightening the normal cervical curvature. 3. Multilevel degenerative changes. Dictated By: Kp Ruvalcaba MD Signed By: Electronically signed by Kp Ruvalcaba MD 12/31/23 0844 - Vent. Rate: 090 BPM Atrial Rate: 090 BPM P-R Int: 152 ms QRS Dur: 102 ms QT Int: 354 ms P-R-T Axes: 033 -11 021 degrees QTc Int: 433 ms Normal sinus rhythm Inferior infarct , age undetermined Abnormal ECG When compared with ECG of 21-SEP-2022 14:19, No significant change was found Electronically Signed By:HUMBERTO MEJIA MD Dictated By: Humberto Mejia MD Signed By: Electronically signed by Humberto Mejia MD 12/31/230 DD/ 0649 - Vent. Rate: 079 BPM Atrial Rate: 079 BPM P-R Int: 154 ms QRS Dur: 102 ms QT Int: 360 ms P-R-T Axes: 038 -10 028 degrees QTc Int: 412 ms Normal sinus rhythm Possible Inferior infarct When compared with ECG of 31-DEC-2023 06:49, No significant change was found Electronically Signed By:HUMBERTO MEJIA MD Dictated By: Humberto Mejia MD Signed By: Electronically signed by Humberto Mejia MD 12/31/231119 DD/ 0741 - Vent. Rate: 076 BPM Atrial Rate: 076 BPM P-R Int: 152 ms QRS Dur: 108 ms QT Int: 382 ms P-R-T Axes: 034 -15 021 degrees QTc Int: 429 ms Normal sinus rhythm Minimal voltage criteria for LVH, may be normal variant (Lior product) Inferior infarct , age undetermined Abnormal ECG When compared with ECG of 31-DEC-2023 07:41, No significant change was found Electronically Signed By:HUMBERTO MEJIA MD Dictated By: Humberto Mejia MD Signed By: Electronically signed by Humberto Mejia MD 12/31/231119 DD/ - Vent. Rate: 074 BPM Atrial Rate: 074 BPM P-R Int: 162 ms QRS Dur: 088 ms QT Int: 362 ms P-R-T Axes: 039 -05 005 degrees QTc Int: 401 ms Posterior leads Normal sinus rhythm Inferior infarct (cited on or before 31-DEC-2023) Abnormal ECG When compared with ECG of 31-DEC-2023 08:36, No evidence of posterior NJ Electronically Signed By:HUMBERTO MEJIA MD Dictated By: Humberto Mejia MD Signed By: Electronically signed by Humberto Mejia MD 12/31/231120 DD/ 0841 - Procedure Date: 12/31/2023 Procedure Type: Transthoracic Echocardiogram Location: ER Height: 182.88 cm Weight: 110.22 kg BSA: 2.31 m2 Heart Rate: bpm BP: 145 / 66 mmHg School Cook: TO Referring MD: Annabelle DEAN Symptoms: chest pain Study Quality: Fair/Contrast Conclusions: 1. Mildly dilated left ventricle with low normal LV ejection fraction 50-55% with regional wall motion abnormality circumflex territory 2. Mild mitral regurgitation 3. No gross pericardial effusion Findings Procedure Information Contrast agent, definity, is being given per protocol without apparent complications. Left Ventricle Mildly increased left ventricular cavity size. There is normal left ventricular wall thickness. The left ventricular systolic function is low normal. The visually estimated ejection fraction is between 50-55%. Spectral Doppler is indicative of an impaired relaxation filling pattern. E/E prime ratio is between 8 and 15 consistent with indeterminate filling pressures. Wall Motion Rest Echo Findings The basal inferior and basal anterolateral segments are hypokinetic. All other scored wall segments showed normal motion. Right Ventricle Normal right ventricular cavity size and systolic function. Atria The left atrium is likely dilated. There is no evidence of interatrial shunt. The right atrium is normal in size. Aortic Valve Normal aortic valve structure and function. There is no aortic valve stenosis. There is no aortic valve regurgitation. Mitral Valve There is mild anterior and posterior mitral leaflet thickening. The posterior mitral leaflet has restricted mobility. There is mild mitral valve regurgitation. There is no mitral valve stenosis. Pulmonic Valve The pulmonic valve is likely normal. Tricuspid Valve Normal tricuspid valve structure. Tricuspid regurgitation envelope is inadequate for calculation of right ventricular systolic pressure. Normal right atrial pressure. Great Vessels The pulmonary artery was not well visualized. There is no dilatation of the ascending aorta measuring 3.40cm. Venous The inferior vena cava is normal in size and collapses greater than 50% with inspiration. Pericardium/Pleural There is no evidence of pericardial effusion. Prior Study Comparison Changes noted compared to prior study dated: 05/19/2018. LV systolic function is marginally reduced along with wall motion abnormalities. Findings discussed with ED provider. Updated in Other Vendor System with Status of Final Humberto Mejia MD electronically signed on 12/31/2023 10:10:58 AM with status of Final Dictated By: Humberto Mejia MD Signed By: Electronically signed by Humberto Mejia MD 12/31/23 1010 DD/ 0909 Radiology Impression Discussion of test interpretation with radiology: I have reviewed the radiologist's reading. Independent Historian Clinical information obtained from an independent historian. History obtained from or confirmed by: Spouse (patient's provided additional history and confirmed the history provided by the patient.) and EMS (EMS provided additional history and confirmed the history provided by the patient.) External Record Review External record reviewed: Office record, Outpatient record, Prior outpatient radiology and Other (reviewed all cardiology records) Chronic Conditions Patient?s care impacted by: Diabetes and Hypertension Critical Care Time Critical Care Time Critical Care Time: Yes Total Critical Care Time: 128 Attestation: I spent 128 minutes of Critical Care Time with this patient. This does not include time spent on separately reported billable procedures. Discharge Plan Discharge Clinical Impression: Acute non-ST elevation myocardial infarction (NSTEMI), Chest pain Patient Disposition: [facility] Transfer Details: [facility] Prescriptions: No Action Eliquis 5 mg tablet 5 mg PO BID Qty: 180 3RF Multaq 400 mg tablet 400 mg PO BID Qty: 180 3RF metoprolol succinate 50 mg tablet extended release 24 hr 50 mg PO DAILY Qty: 90 1RF Januvia 25 mg tablet 1 tab PO BEDTIME melatonin 10 mg Tablet 10 mg PO BEDTIME losartan 50 mg tablet 50 mg PO BEDTIME atorvastatin 20 mg tablet 20 mg PO DAILY allopurinol 300 mg tablet 300 mg PO DAILY metformin 500 mg tablet 1,000 mg PO BID pantoprazole 40 mg tablet,delayed release (DR/EC) 40 mg PO DAILY@0630 magnesium oxide 400 mg (241.3 mg magnesium) tablet 400 mg PO BID levetiracetam 500 mg tablet 1,000 mg PO BID Print Language: Luxembourgish
--- NOTE | 2023-12-31 07:00 | CA_ITS ---
Transthoracic Echocardiogram Patient (Last, First, Middle): Cristopher Guzman P Gender: Male Date of : 1960 Age: 63 Procedure Date: 12/31/2023 Procedure Type: Transthoracic Echocardiogram Location: ER Height: 182.88 cm Weight: 110.22 kg BSA: 2.31 m2 Heart Rate: bpm BP: 145 / 66 mmHg Account Manager Relief: TO Referring MD: Annabelle DEAN Symptoms: chest pain Study Quality: Fair/Contrast Conclusions: - 1. Mildly dilated left ventricle with low normal LV ejection fraction 50-55% with regional wall motion abnormality circumflex territory 2. Mild mitral regurgitation 3. No gross pericardial effusion Findings Procedure Information Contrast agent, definity, is being given per protocol without apparent complications. Left Ventricle Mildly increased left ventricular cavity size. There is normal left ventricular wall thickness. The left ventricular systolic function is low normal. The visually estimated ejection fraction is between 50-55%. Spectral Doppler is indicative of an impaired relaxation filling pattern. E/E prime ratio is between 8 and 15 consistent with indeterminate filling pressures. Wall Motion Rest Echo Findings The basal inferior and basal anterolateral segments are hypokinetic. All other scored wall segments showed normal motion. Right Ventricle Normal right ventricular cavity size and systolic function. Atria The left atrium is likely dilated. There is no evidence of interatrial shunt. The right atrium is normal in size. Aortic Valve Normal aortic valve structure and function. There is no aortic valve stenosis. There is no aortic valve regurgitation. Mitral Valve There is mild anterior and posterior mitral leaflet thickening. The posterior mitral leaflet has restricted mobility. There is mild mitral valve regurgitation. There is no mitral valve stenosis. Pulmonic Valve The pulmonic valve is likely normal. Tricuspid Valve Normal tricuspid valve structure. Tricuspid regurgitation envelope is inadequate for calculation of right ventricular systolic pressure. Normal right atrial pressure. Great Vessels The pulmonary artery was not well visualized. There is no dilatation of the ascending aorta measuring 3.40 cm. Venous The inferior vena cava is normal in size and collapses greater than 50% with inspiration. Pericardium/Pleural There is no evidence of pericardial effusion. Prior Study Comparison Changes noted compared to prior study dated: 05/19/2018. LV systolic function is marginally reduced along with wall motion abnormalities. findings discussed with ED provider Measurements 2D Linear Measurements IVSd: 1.11 0.6-0.9/0.6-1.0 cm LVIDd: 6.28 3.9-5.3/4.2-5.9 cm LVIDd Index: 2.72 2.4-3.2/2.2-3.1 cm/m2 LVIDs: 4.52 2.0-3.6 cm LVPWd: 0.77 0.7-1.1 cm LA Diam: 4.60 2.7-3.8/3.0-4.0 cm LAIDs Index: 1.99 1.5-2.3 cm/m2 LV Mass: 308.32 67-162/88-224 g LV Mass Index: 133.47 43-95/49-115 g/m2 LVOT Diam: 2.20 3.0+(-)1.3 cm 2D Systolic Function EF 4C: 55.40 >55% EF 2C: 50.50 >55% Mitral Valve MV Pk E: 0.48 MV PK A: 0.54 MV Decel Time: 233.00 E/A: 0.90 E'Lateral: 6.09 E'Medial: 5.77 E/E' Med: 8.30 E/E' Lat: 7.90 PHT: 68.00 MVA PHT: 3.24 Decel Evans: 2.06 Aortic Valve AoV Pk Chris: 1.59 AoV Mn Chris: 1.05 AoV VTI: 0.31 AoV Pk Grad: 10.00 Aov Mn Grad: 5.00 AIDAN Cont.VTI: 2.34 LVOT LVOT Pk Chris: 0.95 LVOT Mn Chris: 0.65 LVOT VTI: 0.19 LVOT Pk Grad: 4.00 LVOT Mn Grad: 2.00 LVOT Diam: 2.20 LVOT Area: 3.80 Diastolic Function MV Pk E: 0.48 MV Pk A: 0.54 E/A: 0.90 E'Medial: 5.77 E/E' Med: 8.30 E' Laterial: 6.09 E/E' Lat: 7.90 Right Ventricle TAPSE (mm): 20.30 TVS' Chris: 15.00 Tricuspid Valve RA Press: 3.00 Great Vessels Aorta Sinus of Valsalva: 3.20 2.0-3.5 cm Ao Asc: 3.40 2.1-3.4 cm Updated in Other Vendor System with Status of Final Humberto Solange MD electronically signed on 12/31/2023 10:10:58 AM with status of Final
[2023-12-31 07:04] LABS: MANUAL DIFF FLAG NO
[2023-12-31 07:05] LABS: Basophils Percent Auto 0.4 % (0-2); Eosinophils Absolute Auto 0.1 X10*3/uL (0.0-0.4); Eosinophils Percent Auto 0.8 % (0-4); Hematocrit 42.9 % (42.0-52.0); Hemoglobin 14.6 g/dl (14.0-18.0); Imm Gran Abs Auto 0.03 X10*3/uL (0.00-0.03); Imm Gran Pct Auto 0.3 % (0.0-0.4); Lymphocytes Percent Auto 10.8 % (20-40); Mean Corpuscular Hemoglobin 29.6 pg (27.0-33.0); Mean Corpuscular Volume 86.8 fL (80.0-98.0); Mean Platelet Volume 10.3 fL (9.4-12.4); Monocytes Absolute Auto 0.6 X10*3/uL (0.1-1.2); Monocytes Percent Auto 6.6 % (2-11); Neutrophils Absolute Auto 7.4 x10*3/uL (2.0-8.3); Neutrophils Percent Auto 81.1 % (45-73); Platelet Count 201 X10*3/uL (160-400); Red Blood Count 4.94 X10*6/uL (4.60-5.80); Red Cell Distribution Width 13.2 % (11.0-16.0); White Blood Count 9.2 X10*3/uL (4.8-10.8)
[2023-12-31 07:13] LABS: Prothrombin Time 12.1 SEC (11.1-13.3)
[2023-12-31 07:16] LABS: Partial Thromboplastin Time 27.2 SEC (26.0-36.8)
[2023-12-31 07:20] LABS: Alanine Aminotransferase 30 U/L (0-40); Albumin Level 4.1 g/dL (3.5-5.0); Alkaline Phosphatase 82 U/L (39-117); Anion Gap 15 (12-20); Aspartate Amino Transferase 29 U/L (5-37); Bilirubin Total 0.4 mg/dL (0.0-1.0); Blood Urea Nitrogen 18 mg/dL (9-16); Calcium 9.4 mg/dL (8.4-10.2); Carbon Dioxide 20 mmol/L (22-29); Chloride 106 mmol/L (96-108); Creatinine Clr Calc Pharmacy 83.2; Estimated Glomerular Filt Rate > 60; Glucose Random 307 mg/dL (60-115); Magnesium 1.8 mg/dL (1.6-2.6); Potassium 3.9 mmol/L (3.3-5.1); Sodium 137 mmol/L (135-145); Total Protein 6.9 g/dL (6.5-8.0)
[2023-12-31 07:26] LABS: B Type Natriuretic Peptide 27 pg/mL (<100)
[2023-12-31 07:35] LABS: Troponin-I High Sensitivity 116.6 ng/L (<3.5-35.0)
[2023-12-31 07:38] LABS: Lactic Acid 1.8 mmol/L (0.5-2.0)
--- NOTE | 2023-12-31 07:42 | ECG_ITS ---
Test Reason : chest pain Blood Pressure : / mmHG Vent. Rate : 079 BPM Atrial Rate : 079 BPM P-R Int : 154 ms QRS Dur : 102 ms QT Int : 360 ms P-R-T Axes : 038 -10 028 degrees QTc Int : 412 ms Normal sinus rhythm Possible Inferior infarct When compared with ECG of 31-DEC-2023 06:49, No significant change was found Referred By: Annabelle Monroe Electronically Signed By:JENNIFER MEJIA MD
[2023-12-31] MEDS: Nitroglycerin 0.4 MG TAB.SUBL SUBLINGUAL (07:55)
[2023-12-31] MEDS: LORazepam 2 MG/ML VIAL 1 MG IVPUSH (07:55)
--- NOTE | 2023-12-31 08:33 | ECG_ITS ---
Test Reason : repeat Blood Pressure : / mmHG Vent. Rate : 076 BPM Atrial Rate : 076 BPM P-R Int : 152 ms QRS Dur : 108 ms QT Int : 382 ms P-R-T Axes : 034 -15 021 degrees QTc Int : 429 ms Normal sinus rhythm Minimal voltage criteria for LVH, may be normal variant ( Lior product ) Inferior infarct , age undetermined Abnormal ECG When compared with ECG of 31-DEC-2023 07:41, No significant change was found Referred By: Annabelle Monroe Electronically Signed By:JENNIFER MEJIA MD
--- NOTE | 2023-12-31 08:38 | ECG_ITS ---
Test Reason : cp Blood Pressure : / mmHG Vent. Rate : 074 BPM Atrial Rate : 074 BPM P-R Int : 162 ms QRS Dur : 088 ms QT Int : 362 ms P-R-T Axes : 039 -05 005 degrees QTc Int : 401 ms Posterior leads Normal sinus rhythm Inferior infarct (cited on or before 31-DEC-2023) Abnormal ECG When compared with ECG of 31-DEC-2023 08:36, No evidence of posterior MS Referred By: Annabelle Monroe Electronically Signed By:JENNIFER MEJIA MD
[2023-12-31] MEDS: 0.9 % Sodium Chloride 1,000 ML 999 ML IV (08:50)
[2023-12-31] MEDS: Morphine Sulfate 4 MG/ML CARTRIDGE IVPUSH (08:50)
[2023-12-31 09:12] LABS: Influenza A PCR NEGATIVE (Negative); Influenza B PCR NEGATIVE (Negative); Resp Syncy Virus RNA Qual PCR NEGATIVE (Negative); SARS COV2 PCR INHOUSE NEGATIVE (Negative)
[2023-12-31 09:37] LABS: Troponin-I High Sensitivity 443.7 ng/L (<3.5-35.0)
[2023-12-31] MEDS: Nitroglycerin/D5W 100 MG/250 ML INFUS..BTL IVCONT (10:01)
[2023-12-31 10:08] LABS: Hematocrit 39.8 % (42.0-52.0); Hemoglobin 13.7 g/dl (14.0-18.0); Mean Corpuscular HGB Conc 34.4 g/dl (31.0-36.0); Mean Corpuscular Hemoglobin 30.1 pg (27.0-33.0); Mean Corpuscular Volume 87.5 fL (80.0-98.0); Platelet Count 186 X10*3/uL (160-400); Red Blood Count 4.55 X10*6/uL (4.60-5.80); Red Cell Distribution Width 13.3 % (11.0-16.0)
[2023-12-31 10:16] LABS: Prothrombin Time 12.7 SEC (11.1-13.3)
[2023-12-31 10:18] LABS: PTT Heparin Drip 28.1 SEC (53-77.9)
[2023-12-31] MEDS: Heparin Sodium,Porcine/1/2NS 25,000 UNIT/250 ML IV.SOLN 10 UNIT IVCONT (10:23)
[2023-12-31] MEDS: Heparin Sodium,Porcine 5,000 UNIT/ML VIAL 4000 UNIT IVPUSH (10:23)
--- NOTE | 2023-12-31 10:56 | PC.NURSE ---
per DIANNE Alanis, titrate Nitro drip up to 20 mcg/min.
--- NOTE | 2023-12-31 11:32 | P.CONCA_ITS ---
History of Present Illness History of Present Illness Date of Service: 12/31/23 Requesting physician: Annabelle Monroe Chief complaint: NSTEMI Narrative: [age] gentleman with known history of [id number] coronary artery disease based on cardiac catheterization in the past, paroxysmal atrial fibrillation and seizure disorder who is presenting with night terrors/seizure episode last evening. He has been stable since addition of Keppra in the past for long time but apparently had a seizure last evening. Subsequent to that he started complaining of left-sided chest discomfort which was a squeezing/tight sensation. He is saying he has not experienced this before. With these symptoms he presented to [place] emergency department. His initial troponin was 116.6. EKG did not show any dynamic changes. Given ongoing symptoms he had nitroglycerin given to him followed by morphine with no significant change in symptoms. We performed a bedside echocardiogram which is showing basal anterolateral and inferior wall motion abnormality. He did have some basal inferior wall motion in the past. His high sensitive troponin levels went up to 443.7. [facility] Past Medical History Medical History Seizures Elevated cholesterol Renal calculi Gout ACS (acute coronary syndrome) PAF (paroxysmal atrial fibrillation) HTN (hypertension) Diabetes mellitus Obstructive sleep apnea Family History Family History Father CVD (cardiovascular disease) Stroke Arteriosclerosis of bypass graft of coronary artery Diabetes CHF (congestive heart failure) Mother No problems noted. Surgical History Surgical History Hx of cardiac catheterization History of right knee surgery Hx of colonoscopy Hx of hernia repair Social History Social History Household Members: Spouse Housing: House Do you presently have visiting nurse or other home services: No Alcohol intake: current Alcohol intake frequency: holidays/special occasions only Patient Tobacco Use Status: Never used Tobacco Advance Directives: No Advance Directives Information Provided: Yes Do you have a plan to hurt others: No Plan service: Yes Current occupational status: employed Meds Allergies Allergy/AdvReac Type Severity Reaction Status Date / Time No Known Allergies Allergy Verified 12/31/23 06:55 [No Known Allergies*] Active Medications: Current Medications Heparin Sodium (Porcine) (Heparin Sodium,Porcine 5,000 Unit/Ml Vial) 4,900 unit 40 unit/kg (4900 unit) IVPUSH PROTOCOL BOLUS PRN; Protocol PRN Reason: 40 unit/kg - Heparin Protocol Heparin Sodium (Porcine) (Heparin Sodium,Porcine 5,000 Unit/Ml Vial) 9,800 unit 80 unit/kg (9800 unit) IVPUSH PROTOCOL BOLUS PRN; Protocol PRN Reason: 80 unit/kg - Heparin Protocol Nitroglycerin/Dextrose (Nitroglycerin/D5w) 100 mg in 250 mls @ 0 mls/hr IVCONT .Q0M JOVANNY; Protocol Last Titration: 12/31/23 10:54 Dose: 20 mcg/min, 3 mls/hr Heparin Sodium/Sodium Chloride (Heparin Sodium,Porcine/1/2ns) 25,000 unit in 250 mls @ 0 mls/hr IVCONT .Q0M JOVANNY; Protocol Last Admin: 12/31/23 10:23 Dose: 8.17 units/kg/hr, 10 mls/hr Nitroglycerin (Nitroglycerin 0.4 Mg Tab.Subl) 0.4 mg SUBLINGUAL Q5MX3 PRN PRN Reason: Chest Pain Last Admin: 12/31/23 07:55 Dose: 0.4 mg Home Medications ?Medication ?Instructions ?Recorded ?Confirmed ?Last Taken ?Type allopurinol 300 mg tablet 300 mg PO DAILY 05/12/20 08/26/23 09/20/22 09:00 History atorvastatin 20 mg tablet 20 mg PO DAILY 05/12/20 08/26/23 09/20/22 09:00 History magnesium oxide 400 mg (241.3 mg 400 mg PO BID 05/12/20 08/26/23 09/20/22 09:00 History magnesium) tablet metformin 500 mg tablet 1,000 mg PO BID 05/12/20 08/26/23 09/20/22 09:00 History pantoprazole 40 mg tablet,delayed 40 mg PO DAILY@0630 05/12/20 08/26/23 09/20/22 09:00 History release levetiracetam 500 mg tablet 1,000 mg PO BID 06/08/20 08/26/23 09/20/22 09:00 History losartan 50 mg tablet 50 mg PO BEDTIME 09/20/22 08/26/2323 History melatonin 10 mg tablet 10 mg PO BEDTIME 09/20/22 08/26/23 09/19/22 History sitagliptin phosphate 25 mg tablet 1 tab PO BEDTIME 09/20/22 08/26/23 08/26/23 History (Ricky) Physical Exam 2 Vital Signs: Vital Signs: Last Vital Signs Temp 98 F 12/31/23 06:53 Pulse 73 12/31/23 11:09 Resp 18 12/31/23 11:09 BP 133/64 12/31/23 11:09 Pulse Ox 97 12/31/23 11:09 O2 Del Method Nasal Cannula 12/31/23 11:09 O2 Flow Rate 2 12/31/23 11:09 Oxygen Flow Rate 2 12/31/23 06:53 BMI result Body Mass Index 36.6 GENERAL APPEARANCE: Still having mild discomfort on nitroglycerin drip. NECK: no carotid bruit, no jugular venous distention. SKIN: no suspicious lesions, warm and dry. HEART: no murmurs, regular rate and rhythm. LUNGS: clear to auscultation bilaterally. ABDOMEN: soft, nontender. EXTREMITIES: no edema. PERIPHERAL PULSES: equal. NEUROLOGIC: No gross deficits, AAO X 3 Objective Labs and Meds 12/31/23 09:59 12/31/23 06:58 Lab results: Laboratory Results - last 24 hr 12/31/23 12/31/23 12/31/23 06:58 07:21 07:58 WBC 9.2 RBC 4.94 Hgb 14.6 Hct 42.9 MCV 86.8 MCH 29.6 MCHC 34.0 RDW 13.2 Plt Count 201 MPV 10.3 Immature Gran % (Auto) 0.3 Neut % (Auto) 81.1 H Lymph % (Auto) 10.8 L Louisa % (Auto) 6.6 Eos % (Auto) 0.8 Baso % (Auto) 0.4 Lymph # (Auto) 1.0 L [place] # (Auto) 0.6 Eos # (Auto) 0.1 Baso # (Auto) 0.0 Abs Immat Gran (auto) 0.03 Absolute Neuts (auto) 7.4 Absolute Nucleated RBC 0.000 Nucleated RBC % (auto) 0.0 PT 12.1 INR 1.0 APTT 27.2 aPTT Heparin Protocol Sodium 137 Potassium 3.9 Chloride 106 Carbon Dioxide 20 L Anion Gap 15 BUN 18 H Creatinine 1.15 Estim Creat Clear Calc 83.2 Estimated GFR > 60 Random Glucose 307 H Lactic Acid 1.8 Calcium 9.4 Magnesium 1.8 Total Bilirubin 0.4 AST 29 ALT 30 Alkaline Phosphatase 82 Troponin I High Sens 116.6 H* D 232.0 H* D B-Natriuretic Peptide 27 Total Protein 6.9 Albumin 4.1 Influenza Type A (PCR) NEGATIVE Influenza Type B (PCR) NEGATIVE RSV RNA Qual (PCR) NEGATIVE SARS-CoV-2 RNA (RT-PCR) NEGATIVE 12/31/23 12/31/23 09:10 09:59 WBC 8.0 RBC 4.55 L Hgb 13.7 L Hct 39.8 L MCV 87.5 MCH 30.1 MCHC 34.4 RDW 13.3 Plt Count 186 MPV 10.0 Immature Gran % (Auto) Neut % (Auto) Lymph % (Auto) Louisa % (Auto) Eos % (Auto) Baso % (Auto) Lymph # (Auto) Louisa # (Auto) Eos # (Auto) Baso # (Auto) Abs Immat Gran (auto) Absolute Neuts (auto) Absolute Nucleated RBC 0.000 Nucleated RBC % (auto) 0.0 PT 12.7 INR 1.0 APTT aPTT Heparin Protocol 28.1 L Sodium Potassium Chloride Carbon Dioxide Anion Gap BUN Creatinine Estim Creat Clear Calc Estimated GFR Random Glucose Lactic Acid Calcium Magnesium Total Bilirubin AST ALT Alkaline Phosphatase Troponin I High Sens 443.7 H* D B-Natriuretic Peptide Total Protein Albumin Influenza Type A (PCR) Influenza Type B (PCR) RSV RNA Qual (PCR) SARS-CoV-2 RNA (RT-PCR) Imaging Radiologist's impression: Impressions Cervical Spine CT 12/31/23 07:37 IMPRESSION: 1. No acute intracranial pathology. 2. Near opacification of the left sphenoid sinus. EXAMINATION: Noncontrast CT scan of the cervical spine. INDICATION: Possible seizure confusion COMPARISON: None. TECHNIQUE: Helical, multidetector axial images were obtained from the occiput to the upper thorax. Coronal and sagittal reformats of the cervical spine were provided for interpretation. DLP: 504.87 mGy-cm FINDINGS: No acute fractures or dislocations of the cervical spine are seen. Straightening the normal cervical curvature. Multilevel degenerative changes. Anatomic alignment and positioning of the vertebral bodies and posterior elements is noted. The atlantoaxial joint and craniovertebral articulations are normal without evidence of subluxation. There is no prevertebral soft tissue swelling. The visualized portions of the thyroid are unremarkable. IMPRESSION: 1. No acute visible fracture or dislocation. 2. Straightening the normal cervical curvature. 3. Multilevel degenerative changes. Head CT 12/31/23 07:37 IMPRESSION: 1. No acute intracranial pathology. 2. Near opacification of the left sphenoid sinus. EXAMINATION: Noncontrast CT scan of the cervical spine. INDICATION: Possible seizure confusion COMPARISON: None. TECHNIQUE: Helical, multidetector axial images were obtained from the occiput to the upper thorax. Coronal and sagittal reformats of the cervical spine were provided for interpretation. DLP: 504.87 mGy-cm FINDINGS: No acute fractures or dislocations of the cervical spine are seen. Straightening the normal cervical curvature. Multilevel degenerative changes. Anatomic alignment and positioning of the vertebral bodies and posterior elements is noted. The atlantoaxial joint and craniovertebral articulations are normal without evidence of subluxation. There is no prevertebral soft tissue swelling. The visualized portions of the thyroid are unremarkable. IMPRESSION: 1. No acute visible fracture or dislocation. 2. Straightening the normal cervical curvature. 3. Multilevel degenerative changes. Chest X-Ray 12/31/23 08:50 IMPRESSION: Low lung volumes. No convincing evidence for an acute process Assessment and Plan (1) Acute non-ST elevation myocardial infarction (NSTEMI): Status: Acute Plan Very pleasant 63 year gentleman who is presenting with seizure followed by chest discomfort. He has ruled in for NSTEMI and has ongoing symptoms currently. We have started him on a nitroglycerin drip and are transferring him to [facility] CCU [facility]. He will go for cardiac catheterization today. Initial plan was to see with nitroglycerin if he can improve because he took Eliquis last night and still has it in his system which could lead to some higher bleeding risk in him but given the acuity of the situation I think he will need cardiac catheterization today. He is NPO and is on heparin drip. Hemodynamically stable. Do not dynamic EKG changes/ST elevation seen even on posterior EKG. He is being transferred urgently to [facility]. Thank you for allowing me to participate in the care of your patient. Please feel free to contact me if you have any questions. Procedures Date of Service Date of Service: 12/31/23
[2024-01-03 03:04] LABS: Levetiracetam Keppra 27.6 mcg/mL (6.0-46.0)
== END 2023-12-31 12:45 | disposition short-term general hospital (02) ==
PROVIDERS: Physician Assistant Medical; Emergency Provider Emergency Medicine
DX: I21.4 Non-ST elevation (NSTEMI) myocardial infarction (principal); I25.10 Atherosclerotic heart disease of native coronary artery without angina pectoris; I10 Essential (primary) hypertension; R07.9 Chest pain, unspecified; I48.91 Unspecified atrial fibrillation; E11.9 Type 2 diabetes mellitus without complications; M10.9 Gout, unspecified; G40.909 Epilepsy, unspecified, not intractable, without status epilepticus; Z79.01 Long term (current) use of anticoagulants; Z79.899 Other long term (current) drug therapy; Z03.818 Encounter for observation for suspected exposure to other biological agents ruled out
CPT/HCPCS: 0241U; 36415; 70450; 71045; 72125; 80053; 80177; 83605; 83735; 83880; 84484; 85025; 85027; 85610; 85730; 93005; 93306; 96361; 96365; 96375; 99285; J1644; J2060; J2270; J2305; Q9957

== ENCOUNTER → 2023-12-31 07:00 | Outpatient (BNV) | payer BC, SELFPAY | PROVIDERS: Emergency Provider Emergency Medicine; Visit Provider Internal Medicine Cardiovascular Disease | DX: I34.0 Nonrheumatic mitral (valve) insufficiency (principal); R94.31 Abnormal electrocardiogram [ECG] [EKG]; R07.9 Chest pain, unspecified | CPT/HCPCS: 93010; 93306 ==

== ENCOUNTER → 2023-12-31 08:00 | Outpatient (BNV) | payer BC, SELFPAY | PROVIDERS: Emergency Provider Emergency Medicine; Visit Provider Internal Medicine Cardiovascular Disease | DX: I21.4 Non-ST elevation (NSTEMI) myocardial infarction (principal) | CPT/HCPCS: 99223 ==

== ENCOUNTER → 2023-12-31 23:59 | Outpatient (BNV) | payer BC, SELFPAY | PROVIDERS: Visit Provider Internal Medicine Cardiovascular Disease | DX: I21.4 Non-ST elevation (NSTEMI) myocardial infarction (principal) | CPT/HCPCS: 92928; 92978; 93458; 99152 ==

== ENCOUNTER 2024-02-02 14:52 | Outpatient (AMB) | payer BC, SELFPAY ==
[2024-02-02 15:21] VITALS: BP 134/70; PULSE 58; BMI 33.1
--- NOTE | 2024-02-02 15:21 | MHC.OFFVIS ---
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 Allergies No Known Allergies [No Known Allergies*] Allergy (Verified 02/02/24 15:24) Medication List - Last Reconciled 02/02/24 by Xiao Hobbs NP-C allopurinol 300 mg PO DAILY apixaban (Eliquis) 5 mg PO BID atorvastatin 80 mg PO DAILY clopidogrel 75 mg PO DAILY dronedarone (Multaq) 400 mg PO BID levetiracetam 1,000 mg PO BID losartan 50 mg PO BEDTIME magnesium oxide 400 mg PO BID melatonin 10 mg PO BEDTIME metformin 1,000 mg PO BID metoprolol succinate ER 50 mg PO DAILY pantoprazole 40 mg PO DAILY@0630 sitagliptin phosphate (Januvia) 1 tab PO BEDTIME HPI HPI -radial site check.-km pt: Details: Cristopher is a 64-year-old male with past medical history of hypertension, hyperlipidemia, diabetes, obstructive sleep apnea, night terrors, paroxysmal atrial fibrillation, recent episode of chest discomfort followed by stress test and CTA of the coronary suggesting moderate CAD. He underwent cardiac catheterization 11/2022 showing mild nonobstructive CAD. He recently presented to [facility] with chest discomfort, ruled in for ACS and was transferred to [facility] for cardiac catheterization. He had significant RCA stenosis and KRIS was placed. He now presents for follow-up. Today he reports has been doing well since his hospital discharge. He does not have any recurrent chest discomfort. He denies shortness of breath, PND, orthopnea or edema. No lightheadedness, presyncope, syncope, falls. He reports compliance with his CPAP use. His right radial catheterization site is feeling well. He is taking his medications as directed. No bleeding issues reported. 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 He went to start cardiac rehab at [facility] and they did not take his insurance. He will be switching insurances on February 07. He would [place] [facility] [facility] Medical History Seizures Elevated cholesterol Renal calculi Gout ACS (acute coronary syndrome) PAF (paroxysmal atrial fibrillation) HTN (hypertension) Diabetes mellitus Obstructive sleep apnea Surgical History Hx of cardiac catheterization History of right knee surgery Hx of colonoscopy Hx of hernia repair Family History Father CVD (cardiovascular disease) Stroke Arteriosclerosis of bypass graft of coronary artery Diabetes CHF (congestive heart failure) Mother No problems noted. Social History Household Members: Spouse Housing: House Do you presently have visiting nurse or other home services: No Alcohol intake: current Alcohol intake frequency: holidays/special occasions only Patient Tobacco Use Status: Never used Tobacco service: Yes Current occupational status: employed Review of Systems Const All systems reviewed & are unremarkable except as noted in HPI and below ENT Denies dizziness Card Denies chest pain, Denies chest pain at rest, Denies chest pain with activity, Denies rapid heart rate, Denies pedal edema, Denies edema, Denies leg edema, Denies lightheadedness, Denies palpitations, Denies dyspnea, Denies dyspnea on exertion and Denies orthopnea Resp Denies cough, Denies dyspnea and Denies dyspnea on exertion GI Denies hematochezia and Denies change in stool character Musc Denies abnormal gait, Denies limited range of motion, Denies muscle cramps, Denies muscle weakness, Denies numbness, Denies radiating pain into limb, Denies stiffness and Denies tingling Neuro Denies abnormal gait, Denies dizziness, Denies numbness and Denies tingling Endo Denies palpitations Physical Exam Vital Signs: Last Vital Signs Pulse 58 02/02/24 15:21 BP 134/70 02/02/24 15:21 BMI result Body Mass Index 33.1 Const General: cooperative, healthy appearing, comfortable and no acute distress Orientation/consciousness: patient oriented x3 Neck Neck: Yes normal visual inspection and Yes no JVD Resp Effort & Inspection: normal respiratory effort Auscultation: clear to auscultation bilaterally, no rales, no rhonchi and no wheezes Cardio Jugular venous distension: no JVD Rate: regular rate Rhythm: regular rhythm Heart sounds: S1 normal heart sound present, S2 normal heart sound present, no murmurs and no rubs Neuro General: patient oriented x3 Extrem Other: right radial cath site well healed, easily palp radial pulse, hand assessment normal General: Yes normal to inspection, No no pedal edema and No calf tenderness Psych Appearance: grossly normal Mental Status: mental status grossly normal Speech and movement: Normal speech and movement present Assessment & Plan Assessment & Plan (1) CAD (coronary artery disease): Code(s): I25.10 - Atherosclerotic heart disease of [place] coronary artery without angina pectoris Category: Medical Plan: Patient with known history of CAD, mild nonobstructive. A cardiac catheterization was performed on 11/20/2022 showing mid LAD 40% stenosis, left circumflex proximal 30% stenosis, RCA mid 30% stenosis. He presented [place] [facility] [place] 12/[place]/23 with left-sided chest discomfort that was present upon wakening. He ruled in for ACS. His echocardiogram did show regional wall motion abnormality. He was transferred to [facility] where he underwent cardiac catheterization showing mid RCA 70% stenosis, culprit lesion. Angioplasty and KRIS was placed. Residual mid LAD stenosis present. Today he reports feeling well with no anginal symptoms. His right radial catheterization site is well healed. Catheterization findings reviewed with him in detail. He will continue on aspirin indefinitely. He is on Plavix uninterrupted for at least 1 year. His atorvastatin was increased from 20 mg daily up to 80 mg daily. He will need a fasting lipid profile in 2 months. Will order cardiac rehab at [facility] to start after 02/08/2024 due to insurance. Signs and symptoms of angina reviewed. Emergency care if ever needed for symptoms. Cardiology office visit in 3 months, sooner if needed. (2) S/P cardiac cath: Comment: 11/20/22 Mid LAD 40% stenosis, LCx proximal 30% stenosis, RCA mid 30% stenosis, cardiac catheterization 12/31/2023 showing mid LAD 60% stenosis, left circumflex mild irregularities less than 30% stenosis, mid RCA 70% stenosis, culprit lesion, concern for thrombus, angioplasty and KRIS placed Code(s): Z98.890 - Other specified postprocedural states Category: Surgical Plan: Left radial catheterization site well healed with easily palpable radial pulse, hand assessment normal (3) PAF (paroxysmal atrial fibrillation): Comment: taking eliquis Code(s): I48.0 - Paroxysmal atrial fibrillation Category: Medical Plan: History of paroxysmal atrial fibrillation. He previously had implanted loop recorder in for monitoring. No recent reports of heart palpitations. EKG done today shows sinus bradycardia, rate 58, QTC 408 milliseconds. Continues on Multaq for rhythm control, metoprolol for heart rate control and Eliquis for anticoagulation. No bleeding issues reported. [place] [facility] [place] creatinine 0.93, hematocrit 36.8. (4) HTN (hypertension): Code(s): I10 - Essential (primary) hypertension Category: Medical Plan: Normal at present. No med changes made (5) Stented coronary artery: Code(s): Z95.5 - Presence of coronary angioplasty implant and graft Category: Surgical Plan: New right coronary artery stent (6) NSTEMI (non-ST elevated myocardial infarction): Code(s): I21.4 - Non-ST elevation (NSTEMI) myocardial infarction Category: Medical Plan: Recent NSTEMI as above Plan Time spent on chart review, documentation, interview and assessment Orders: Orders Cardiac Rehab 02/08/24 I21.4 - Non-ST elevation (NSTEMI) myocardial infarction, Z95.5 - Presence of coronary angioplasty implant and graft Medications: New clopidogrel 75 mg PO DAILY 90 tabs 3RF atorvastatin Disregard other script 80 mg PO BEDTIME 90 tabs 1RF Coding Level of Care Code Est Pt Level 4 (92479) Diagnoses CAD (coronary artery disease) I25.10 S/P cardiac cath Z98.890 PAF (paroxysmal atrial fibrillation) I48.0 HTN (hypertension) I10 Stented coronary artery Z95.5 NSTEMI (non-ST elevated myocardial infarction) I21.4 Time Spent (min) 30
== END 2024-02-02 15:55 | disposition home or self-care (01) ==
PROVIDERS: Visit Provider Nurse Practitioner Family
DX: I25.10 Atherosclerotic heart disease of native coronary artery without angina pectoris (principal); Z98.890 Other specified postprocedural states; I48.0 Paroxysmal atrial fibrillation; I10 Essential (primary) hypertension; Z95.5 Presence of coronary angioplasty implant and graft; I21.4 Non-ST elevation (NSTEMI) myocardial infarction
CPT/HCPCS: 93010; 99214

== ENCOUNTER → 2024-02-02 14:52 | Outpatient (BNVA) | payer BC, SELFPAY | PROVIDERS: Visit Provider Nurse Practitioner Family | DX: I25.10 Atherosclerotic heart disease of native coronary artery without angina pectoris (principal); I48.0 Paroxysmal atrial fibrillation; I10 Essential (primary) hypertension; I21.4 Non-ST elevation (NSTEMI) myocardial infarction; Z79.01 Long term (current) use of anticoagulants; Z79.02 Long term (current) use of antithrombotics/antiplatelets; Z79.899 Other long term (current) drug therapy; Z95.5 Presence of coronary angioplasty implant and graft | CPT/HCPCS: 93005 ==

== ENCOUNTER 2024-04-27 08:39 | Outpatient (AMB) | payer OTHER, SELFPAY ==
[2024-04-27 09:03] VITALS: BP 130/62; PULSE 62; BMI 32.8
--- NOTE | 2024-04-27 09:03 | MHC.OFFVIS ---
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 Accompanied by: Self / Same As Patient Allergies No Known Allergies [No Known Allergies*] Allergy (Verified 02/02/24 15:24) Medication List - Last Reconciled 04/27/24 by Baltazar Isaac MD allopurinol 300 mg PO DAILY apixaban (Eliquis) 5 mg PO BID atorvastatin 80 mg PO BEDTIME clopidogrel 75 mg PO DAILY dronedarone (Multaq) 400 mg PO BID levetiracetam 1,000 mg PO BID losartan 50 mg PO BEDTIME magnesium oxide 400 mg PO BID melatonin 10 mg PO BEDTIME metformin 1,000 mg PO BID metoprolol succinate ER 50 mg PO DAILY pantoprazole 40 mg PO DAILY@0630 sitagliptin phosphate (Januvia) 1 tab PO BEDTIME HPI Comments Details: 64-year-old gentleman here for follow-up. He has background of paroxysmal atrial fibrillation. He was started on flecainide for pill in the pocket approach but previously did not require flecainide. He had asymptomatic episodes of atrial fibrillation in the past. Recently went to the [facility] with chest discomfort which he described like a pressure-like feeling on his chest along with shortness of breath. He was noticed to be in AFib with RVR. It appears he was given beta-blockers for rate control and eventually just converted back to sinus rhythm. He said his symptoms improved after AFib broke. He has been on flecainide since this start at 50 mg twice a day. He is also on Toprol XL 50 mg daily. He has been taking his Eliquis regularly. Subsequent to that he was referred for exercise stress test. On treadmill he did not develop reproducible chest discomfort or significant dyspnea. His EKG also did not have any significant changes although he had baseline T-wave changes in inferior leads which effected interpretation to some extent. He is back for follow-up and he has started his work and feels reasonably well. 03/23/2023: He returns for follow-up. He has been changed to Multaq after diagnosis of coronary disease. He is saying since he started taking Multaq he is feeling more tired at times. He also feels is not refreshed in the morning and uses CPAP regularly. He had sleep study few years ago. 08/24/23: He returns for follow-up. He is undergoing colonoscopy on Thursday. He is going to hold apixaban for 3 days. He is taking Multaq and has not had any further palpitations. Blood pressure initially was elevated but repeat blood pressure is 130/60. Taking medications regularly otherwise. Overall clinically stable. 04/27/2024: He is here for follow-up. In 12/28/2023 he presented with seizure and chest pain. He ruled in for NSTEMI. He was taken urgently for cardiac catheterization which showed plaque rupture with thrombus in the RCA which was treated with drug-eluting stent. He has done well since then. He is saying that he has been getting frequent seizures and he had seizures in December and February. He has been given a nasal spray by the neurologist which his family gives to him during seizure which breaks it quickly. His Keppra dose has been increased and he is due to get EEG done. [facility] Medical History Seizures Elevated cholesterol Renal calculi Gout ACS (acute coronary syndrome) PAF (paroxysmal atrial fibrillation) HTN (hypertension) Diabetes mellitus Obstructive sleep apnea Surgical History Hx of cardiac catheterization History of right knee surgery Hx of colonoscopy Hx of hernia repair Family History Father CVD (cardiovascular disease) Stroke Arteriosclerosis of bypass graft of coronary artery Diabetes CHF (congestive heart failure) Mother No problems noted. Social History Household Members: Spouse Housing: House Do you presently have visiting nurse or other home services: No Alcohol intake: current Alcohol intake frequency: holidays/special occasions only Patient Tobacco Use Status: Never used Tobacco service: Yes Current occupational status: employed Review of Systems Const Denies chills, Denies fatigue, Denies fever(s), Denies frequent falls, Denies weakness, Denies weight gain and Denies weight loss ENT Denies dizziness Card Denies chest pain, Denies leg edema, Denies lightheadedness, Denies palpitations, Denies dyspnea and Denies dyspnea on exertion Resp Denies cough, Denies dyspnea and Denies dyspnea on exertion GI Denies hematochezia Musc Denies abnormal gait, Denies muscle weakness, Denies numbness, Denies radiating pain into limb and Denies tingling Neuro Denies abnormal gait, Denies dizziness, Denies frequent falls, Denies numbness, Denies tingling and Denies weakness Endo Denies fatigue and Denies palpitations Physical Exam Vital Signs: Last Vital Signs Pulse 62 04/27/24 09:03 BP 130/62 04/27/24 09:03 BMI result Body Mass Index 32.8 GENERAL APPEARANCE: in no acute distress, pleasant. NECK: no carotid bruit, no jugular venous distention. SKIN: no suspicious lesions, warm and dry. HEART: no murmurs, regular rate and rhythm. LUNGS: clear to auscultation bilaterally. ABDOMEN: soft, nontender. EXTREMITIES: no edema. PERIPHERAL PULSES: equal. NEUROLOGIC: No gross deficits, AAO X 3 Office Procedures EKG Details: Sinus rhythm 62 beats per minute, normal axis, inferior [id number] infarct, QTC 403 milliseconds. [id number], Complete Assessment & Plan Assessment & Plan (1) NSTEMI (non-ST elevated myocardial infarction): Code(s): I21.4 - Non-ST elevation (NSTEMI) myocardial infarction Category: Medical (2) Stented coronary artery: Code(s): Z95.5 - Presence of coronary angioplasty implant and graft Category: Medical (3) PAF (paroxysmal atrial fibrillation): Code(s): I48.0 - Paroxysmal atrial fibrillation Category: Medical Plan Pleasant 64 year gentleman who is here for follow-up. He was seen in December for chest pain and NSTEMI and underwent cardiac catheterization and PCI to RCA. He is currently on apixaban and Plavix. He is on atorvastatin 80 mg daily. His sugar control has not been good and he may need to start insulin. He appears somewhat overwhelmed by that. He has started cardiac rehabilitation and we discussed that as increase his activity and hopefully loses some weight his sugar control may improve. He also has been getting seizures and is following with neurology closely. From cardiovascular point of view overall he is stable. He continues to be in sinus rhythm at this point with Multaq. He will see us back in few months. Thank you for allowing me to participate in the care of your patient. Please feel free to contact me if you have any questions. Coding Level of Care Code Est Pt Level 4 (63815) Diagnoses NSTEMI (non-ST elevated myocardial infarction) I21.4 Stented coronary artery Z95.5 PAF (paroxysmal atrial fibrillation) I48.0 CPT Codes EKG - CPT: [id number]-[id number], Complete ([id number])
== END 2024-04-27 09:31 | disposition home or self-care (01) ==
PROVIDERS: PCP Family Medicine; Visit Provider Internal Medicine Cardiovascular Disease
DX: I21.4 Non-ST elevation (NSTEMI) myocardial infarction (principal); Z95.5 Presence of coronary angioplasty implant and graft; I48.0 Paroxysmal atrial fibrillation
CPT/HCPCS: 93010; 99214

== ENCOUNTER → 2024-04-27 08:39 | Outpatient (BNVA) | payer OTHER, SELFPAY | PROVIDERS: PCP Family Medicine; Visit Provider Internal Medicine Cardiovascular Disease | DX: I48.0 Paroxysmal atrial fibrillation (principal); I25.2 Old myocardial infarction; Z79.01 Long term (current) use of anticoagulants; Z79.02 Long term (current) use of antithrombotics/antiplatelets; Z79.899 Other long term (current) drug therapy; Z95.5 Presence of coronary angioplasty implant and graft | CPT/HCPCS: 93005 ==

== ENCOUNTER 2024-05-24 16:55 | Emergency (ER) | payer OTHER, SELFPAY ==
--- NOTE | ~2024-05-24 | XR_ITS ---
EXAMINATION: XR CERVICAL SPINE CLINICAL INFORMATION: Left-sided cervical radiculopathy. COMPARISON: CT cervical spine December 31, 2023 TECHNIQUE: 4 views of the cervical spine were obtained. FINDINGS: No fracture or subluxation. No prevertebral soft tissue swelling. Degenerative disc height narrowing and anterior vertebral endplates. C4-C5, C5-C6 and C6-C7. XR/XR cervical spine 3V IMPRESSION: 1. No acute fracture or subluxation. 2. Degenerative disc disease. Electronically signed by: Aidan Price MD 05/24/2024 10:59 PM EDT
[2024-05-24 17:00] VITALS: BP 152/73; PULSE 67; RESP 18; TEMP 36.9; O2SAT 97; BMI 35.4
--- NOTE | 2024-05-24 17:00 | ED_ITS ---
HPI - General Adult General Chief complaint: Neuro Symptoms/Deficit Stated complaint: pulsating feeling in neck Time Seen by Provider: 05/24/24 21:48 Source: patient and family Mode of arrival: ambulatory Limitations: no limitations History of Present Illness ED Provider: Dr. Peralat HPI narrative: Patient is a 64yo male with recent history of NONSTEMI with stent placement who presents with on and off left neck pain radiating down his arm. Related Data Home Medications ?Medication ?Instructions ?Recorded ?Confirmed allopurinol 300 mg tablet 300 mg PO DAILY 05/12/20 04/27/24 magnesium oxide 400 mg (241.3 mg 400 mg PO BID 05/12/20 04/27/24 magnesium) tablet metformin 500 mg tablet 1,000 mg PO BID 05/12/20 04/27/24 pantoprazole 40 mg tablet,delayed 40 mg PO DAILY@0630 05/12/20 04/27/24 release levetiracetam 500 mg tablet 1,000 mg PO BID 06/08/20 04/27/24 losartan 50 mg tablet 50 mg PO BEDTIME 09/20/22 04/27/24 melatonin 10 mg tablet 10 mg PO BEDTIME 09/20/22 04/27/24 sitagliptin phosphate 25 mg tablet 1 tab PO BEDTIME 09/20/22 04/27/24 (Januvia) Previous Rx's ?Medication ?Instructions ?Recorded apixaban 5 mg tablet (Eliquis) 5 mg PO BID #180 tabs 10/09/21 atorvastatin 80 mg tablet 80 mg PO BEDTIME #90 tabs 02/02/24 clopidogrel 75 mg tablet 75 mg PO DAILY #90 tabs 02/02/24 dronedarone 400 mg tablet (Multaq) 400 mg PO BID #180 tabs 02/25/24 metoprolol succinate 50 mg 50 mg PO DAILY #90 tabs 02/25/24 tablet,extended release 24 hr cyclobenzaprine 10 mg tablet 10 mg PO TID #10 tabs 05/24/24 Allergies Allergy/AdvReac Type Severity Reaction Status Date / Time No Known Allergies Allergy Verified 05/24/24 17:03 [No Known Allergies*] Review of Systems 2 Review of Systems: Yes all other systems are reviewed and are negative Neurologic: Denies Sensory deficit (Neuro) PMFSH Past Medical History Medical History Seizures Elevated cholesterol Renal calculi Gout ACS (acute coronary syndrome) PAF (paroxysmal atrial fibrillation) HTN (hypertension) Diabetes mellitus Obstructive sleep apnea Surgical History Hx of cardiac catheterization History of right knee surgery Hx of colonoscopy Hx of hernia repair Family History Family History Father CVD (cardiovascular disease) Stroke Arteriosclerosis of bypass graft of coronary artery Diabetes CHF (congestive heart failure) Mother No problems noted. Social History Social History Household Members: Spouse Housing: House Do you presently have visiting nurse or other home services: No Alcohol intake: current Alcohol intake frequency: holidays/special occasions only Patient Tobacco Use Status: Never used Tobacco Advance Directives: No Advance Directives Information Provided: No service: Yes Current occupational status: employed Physical Exam ED Vital Signs: Vital Signs - 24 hr 05/24/24 17:00 Temperature 98.4 F Pulse Rate 67 Respiratory Rate 18 Blood Pressure 152/73 H Pulse Oximetry 97 Oxygen Delivery Method Room Air BMI result Body Mass Index 35.4 Const General: healthy appearing Nutritional Appearance: average body habitus Orientation/consciousness: oriented to person and patient oriented x3 Limitations: no limitations HENMT Head: Yes normal to inspection Ears: external ears normal General nose exam: Normal external nose present Mouth: Normal oral and palatal mucosa present and oropharynx normal Throat: Yes posterior oropharynx normal Eyes General: appearance normal, both eyes and all related structures Neck Other: left trapezius and left sternocleidomastoid tenderness with neck movement Chest Chest palpation & inspection: normal inspection of the chest Resp Auscultation: clear to auscultation bilaterally Cardio Jugular venous distension: no JVD Rate: regular rate Rhythm: regular rhythm Heart sounds: S1 normal heart sound present and S2 normal heart sound present GI Inspection: Yes normal to inspection Palpation (GI): Soft to palpation, nontender and No hepatosplenomegaly present Auscultation: normal bowel sounds General: Yes no CVA tenderness Back/Spine/Pelvis Back: no CVA tenderness Skin General skin exam: no rashes or lesions noted Neuro General: oriented to person and patient oriented x3 Cranial nerves: Yes CN's II-XII intact bilaterally Motor exam (neuro): 5/5 motor strength present throughout Sensory Exam: No Sensory deficit (Neuro) Extrem Other: left neck pain with range of motion of left shoulder Psych Appearance: grossly normal Course Course Course Narrative: This is an RME: Additional HPI, ROS, PE not included below will be deferred to primary provider. RME assessment and note performed by: Faiza Delgado PA-C This is a [id number]-male, with a past medical history of NSTEMI on clopidogrel and Eliquis, hypertension, diabetes, JOHN, and CAD who presents to the ER with a complaint of pulsating feeling/left arm pain in left arm since 3:50PM while he was driving. Pain in left arm. No CP, SOB, sweats. No blurred vision. Patient does have tenderness palpation along the left trapezius muscles. No recent trauma or injury. Onset was sudden. He does report some tingling into his left fingers. Plan: Labs, EKG, further ER evaluation needed. Vital signs within normal limits. He is neurologically intact. Reevaluation(s) Reevaluation #1: will treat patient for cervical radiculopathy and dc home Time: 22:41 Medications Administered Discontinued Medications Generic Name Dose Route Start Last Admin Trade Name Freq PRN Reason Stop Dose Admin Cyclobenzaprine HCl 10 mg 05/24/24 22:36 05/24/24 22:41 Cyclobenzaprine Hcl 10 Mg Tablet PO 05/24/24 22:37 10 mg ONCE ONE Administration Ketorolac Tromethamine 60 mg 05/24/24 21:56 05/24/24 22:24 Ketorolac Tromethamine 60 Mg/2 Ml Vial IM 05/24/24 21:57 60 mg ONCE ONE Administration Medical Decision Making Differential Diagnosis Differential Diagnoses: The differential diagnosis associated with the presentation includes (cardiac ischemia, cervical radiculopathy, cervical arthritis) Admission/Observation Consideration of admission/observation: Escalation of care including admission/observation considered (upon arrival admission was considered) Lab Data 05/24/24 17:36 05/24/24 17:36 Labs: Lab Results 05/24/24 Range/Units 17:36 WBC 8.6 (4.8-10.8) X10*3/uL RBC 4.86 (4.60-5.80) X10*6/uL Hgb 14.4 (14.0-18.0) g/dl Hct 41.6 L (42.0-52.0) % MCV 85.6 (80.0-98.0) fL MCH 29.6 (27.0-33.0) pg MCHC 34.6 (31.0-36.0) g/dl RDW 13.0 (11.0-16.0) % Plt Count 196 (160-400) X10*3/uL MPV 10.2 (9.4-12.4) fL Immature Gran % (Auto) 0.3 (0.0-0.4) % Neut % (Auto) 58.1 (45-73) % Lymph % (Auto) 27.1 (20-40) % [place] % (Auto) 9.4 (2-11) % Eos % (Auto) 4.4 H (0-4) % Baso % (Auto) 0.7 (0-2) % Lymph # (Auto) 2.3 (1.2-4.9) X10*3/uL [place] # (Auto) 0.8 (0.1-1.2) X10*3/uL Eos # (Auto) 0.4 (0.0-0.4) X10*3/uL Baso # (Auto) 0.1 (0.0-0.2) X10*3/uL Abs Immat Gran (auto) 0.03 (0.00-0.03) X10*3/uL Absolute Neuts (auto) 5.0 (2.0-8.3) x10*3/uL Absolute Nucleated RBC 0.000 (0.0-0.012) X10*3/uL Nucleated RBC % (auto) 0.0 (0.0-0.2) /100WBC PT 11.6 (10.9-12.4) SEC INR 1.0 (0.9-1.1) APTT 26.0 (26.0-36.8) SEC Sodium 137 (135-145) mmol/L Potassium 4.7 D (3.3-5.1) mmol/L Chloride 103 (96-108) mmol/L Carbon Dioxide 25 (22-29) mmol/L Anion Gap 14 (12-20) BUN 20 H (9-16) mg/dL Creatinine 1.44 H (0.5-1.4) mg/dL Estim Creat Clear Calc 65.9 Estimated GFR 49 Random Glucose 244 H (60-115) mg/dL Calcium 9.6 (8.4-10.2) mg/dL Total Bilirubin 0.5 (0.0-1.0) mg/dL Direct Bilirubin 0.2 (0.0-0.5) mg/dL AST 16 (5-37) U/L ALT 23 (0-40) U/L Alkaline Phosphatase 95 (39-117) U/L Troponin I High Sens < 2.7 D (<3.5-35.0) ng/L Total Protein 7.2 (6.5-8.0) g/dL Albumin 4.4 (3.5-5.0) g/dL Independent Interpretation I performed an independent interpretation of an: EKG (sinus 60, old inferior wall SD, no acute st or twave changes) and Plain X-Ray (cervical: djd) Independent Historian Clinical information obtained from an independent historian. History obtained from or confirmed by: Spouse Chronic Conditions Patient?s care impacted by: Diabetes and Hypertension Discharge Plan Discharge Clinical Impression: Cervical radiculopathy Patient Disposition: Home, Self-Care Instructions: Cervical Radiculopathy (ED) Additional Instructions: take 2 extra strength tylenol every 4-6 hours for pain Prescriptions: New cyclobenzaprine 10 mg tablet 10 mg PO TID Qty: 10 0RF No Action Eliquis 5 mg tablet 5 mg PO BID Qty: 180 3RF metoprolol succinate 50 mg tablet extended release 24 hr 50 mg PO DAILY Qty: 90 3RF Multaq 400 mg tablet 400 mg PO BID Qty: 180 3RF Januvia 25 mg tablet 1 tab PO BEDTIME melatonin 10 mg Tablet 10 mg PO BEDTIME losartan 50 mg tablet 50 mg PO BEDTIME allopurinol 300 mg tablet 300 mg PO DAILY metformin 500 mg tablet 1,000 mg PO BID pantoprazole 40 mg tablet,delayed release (DR/EC) 40 mg PO DAILY@0630 magnesium oxide 400 mg (241.3 mg magnesium) tablet 400 mg PO BID levetiracetam 500 mg tablet 1,000 mg PO BID clopidogrel 75 mg tablet 75 mg PO DAILY Qty: 90 3RF atorvastatin 80 mg tablet 80 mg PO BEDTIME Qty: 90 1RF Rx Instructions: Disregard other script Referrals: Lu oGel MD [Primary Care Provider] - 5 days Print Language: Uzbek
--- NOTE | 2024-05-24 17:04 | ECG_ITS ---
Test Reason : LEFT ARM PAIN Blood Pressure : / mmHG Vent. Rate : 059 BPM Atrial Rate : 059 BPM P-R Int : 156 ms QRS Dur : 110 ms QT Int : 414 ms P-R-T Axes : 035 -14 005 degrees QTc Int : 409 ms Sinus bradycardia Minimal voltage criteria for LVH, may be normal variant ( Superior product ) Borderline ECG When compared with ECG of 31-DEC-2023 08:41, Criteria for Septal infarct are no longer Present Referred By: Faiza Delgado Electronically Signed By:ALEJO GORDILLO
[2024-05-24 17:40] LABS: MANUAL DIFF FLAG NO
[2024-05-24 17:45] LABS: Basophils Absolute Auto 0.1 X10*3/uL (0.0-0.2); Basophils Percent Auto 0.7 % (0-2); Eosinophils Absolute Auto 0.4 X10*3/uL (0.0-0.4); Eosinophils Percent Auto 4.4 % (0-4); Hematocrit 41.6 % (42.0-52.0); Hemoglobin 14.4 g/dl (14.0-18.0); Imm Gran Abs Auto 0.03 X10*3/uL (0.00-0.03); Imm Gran Pct Auto 0.3 % (0.0-0.4); Lymphocytes Absolute Auto 2.3 X10*3/uL (1.2-4.9); Lymphocytes Percent Auto 27.1 % (20-40); Mean Corpuscular HGB Conc 34.6 g/dl (31.0-36.0); Mean Corpuscular Hemoglobin 29.6 pg (27.0-33.0); Mean Corpuscular Volume 85.6 fL (80.0-98.0); Mean Platelet Volume 10.2 fL (9.4-12.4); Monocytes Absolute Auto 0.8 X10*3/uL (0.1-1.2); Monocytes Percent Auto 9.4 % (2-11); Neutrophils Percent Auto 58.1 % (45-73); Platelet Count 196 X10*3/uL (160-400); Red Blood Count 4.86 X10*6/uL (4.60-5.80); White Blood Count 8.6 X10*3/uL (4.8-10.8)
[2024-05-24 17:50] LABS: Prothrombin Time 11.6 SEC (10.9-12.4)
[2024-05-24 17:56] LABS: Alanine Aminotransferase 23 U/L (0-40); Albumin Level 4.4 g/dL (3.5-5.0); Alkaline Phosphatase 95 U/L (39-117); Anion Gap 14 (12-20); Aspartate Amino Transferase 16 U/L (5-37); Bilirubin Direct 0.2 mg/dL (0.0-0.5); Bilirubin Total 0.5 mg/dL (0.0-1.0); Blood Urea Nitrogen 20 mg/dL (9-16); Calcium 9.6 mg/dL (8.4-10.2); Carbon Dioxide 25 mmol/L (22-29); Chloride 103 mmol/L (96-108); Creatinine Clr Calc Pharmacy 65.9; Estimated Glomerular Filt Rate 49; Glucose Random 244 mg/dL (60-115); Potassium 4.7 mmol/L (3.3-5.1); Sodium 137 mmol/L (135-145); Total Protein 7.2 g/dL (6.5-8.0)
[2024-05-24 18:03] LABS: Troponin-I High Sensitivity < 2.7 ng/L (<3.5-35.0)
[2024-05-24] MEDS: Ketorolac Tromethamine 60 MG/2 ML VIAL IM (22:24)
[2024-05-24] MEDS: Cyclobenzaprine HCl 10 MG TABLET PO (22:41)
[2024-05-24 23:01] VITALS: BP 142/74; PULSE 63; RESP 17; TEMP 36.9; O2SAT 94
[2024-05-24 23:03] VITALS: BP 142/74; PULSE 63; RESP 17; TEMP 36.9; O2SAT 94
== END 2024-05-24 23:04 | disposition home or self-care (01) ==
PROVIDERS: Physician Assistant Medical; Emergency Provider Emergency Medicine; PCP Family Medicine
DX: M54.12 Radiculopathy, cervical region (principal); M54.2 Cervicalgia; R00.1 Bradycardia, unspecified; M79.602 Pain in left arm; I25.10 Atherosclerotic heart disease of native coronary artery without angina pectoris; Z51.81 Encounter for therapeutic drug level monitoring; Z79.899 Other long term (current) drug therapy; Z79.01 Long term (current) use of anticoagulants
CPT/HCPCS: 36415; 72040; 80048; 80076; 84484; 85025; 85610; 85730; 93005; 96372; 99284; J1885

== ENCOUNTER → 2024-05-24 17:04 | Outpatient (BNV) | payer OTHER, SELFPAY | PROVIDERS: Emergency Provider Emergency Medicine; PCP Family Medicine; Visit Provider Internal Medicine | DX: R00.1 Bradycardia, unspecified (principal) | CPT/HCPCS: 93010 ==

== ENCOUNTER 2024-07-18 07:00 | Outpatient (RCR) | payer OTHER, SELFPAY ==
[2024-04-07 12:27] LABS: Glucose, Whole Blood 262 mg/dL (60-115)
[2024-07-06 07:57] LABS: Glucose, Whole Blood 232 mg/dL (60-115)
== END 2024-07-19 09:47 | disposition home or self-care (01) ==
LOC: HO.CR 07:00
PROVIDERS: PCP Family Medicine; Visit Provider Nurse Practitioner Family
DX: I21.4 Non-ST elevation (NSTEMI) myocardial infarction (principal); Z95.5 Presence of coronary angioplasty implant and graft
CPT/HCPCS: 82947; 93798

== ENCOUNTER 2024-08-15 08:47 | Outpatient (AMB) | payer OTHER, SELFPAY ==
[2024-08-15 08:56] VITALS: BP 130/64; PULSE 67; BMI 35.0
--- NOTE | 2024-08-15 08:56 | MHC.OFFVIS ---
Vital Signs 08/15/24 08:56 Height 5 ft 11 in Weight 250 lb 14.177 oz BMI 35.0 BP 130/64 Blood Pressure Location Lt brachial Position Sitting Pulse 67 Pulse Source Monitor Intake Visit Reasons: 3 mth f/up Intake Note: 3 mth f/up Tire Mounter Required: No Accompanied by: Self / Same As Patient Allergies No Known Allergies [No Known Allergies*] Allergy (Verified 05/24/24 17:03) Medication List - Last Reconciled 08/15/24 by Baltazar Isaac MD allopurinol 300 mg PO DAILY apixaban (Eliquis) 5 mg PO BID atorvastatin 80 mg PO DAILY clopidogrel 75 mg PO DAILY cyclobenzaprine 10 mg PO TID dronedarone (Multaq) 400 mg PO BID insulin glargine 15 units subcut QAM levetiracetam 1,000 mg PO BID losartan 50 mg PO BEDTIME magnesium oxide 400 mg PO BID melatonin 10 mg PO BEDTIME metformin 1,000 mg PO BID metoprolol succinate ER 50 mg PO DAILY pantoprazole 40 mg PO DAILY@0630 sitagliptin phosphate (Januvia) 1 tab PO BEDTIME HPI Comments Details: 64-year-old gentleman here for follow-up. He has background of paroxysmal atrial fibrillation. He was started on flecainide for pill in the pocket approach but previously did not require flecainide. He had asymptomatic episodes of atrial fibrillation in the past. Recently went to the [facility] with chest discomfort which he described like a pressure-like feeling on his chest along with shortness of breath. He was noticed to be in AFib with RVR. It appears he was given beta-blockers for rate control and eventually just converted back to sinus rhythm. He said his symptoms improved after AFib broke. He has been on flecainide since this start at 50 mg twice a day. He is also on Toprol XL 50 mg daily. He has been taking his Eliquis regularly. Subsequent to that he was referred for exercise stress test. On treadmill he did not develop reproducible chest discomfort or significant dyspnea. His EKG also did not have any significant changes although he had baseline T-wave changes in inferior leads which effected interpretation to some extent. He is back for follow-up and he has started his work and feels reasonably well. 03/23/2023: He returns for follow-up. He has been changed to Multaq after diagnosis of coronary disease. He is saying since he started taking Multaq he is feeling more tired at times. He also feels is not refreshed in the morning and uses CPAP regularly. He had sleep study few years ago. 08/24/23: He returns for follow-up. He is undergoing colonoscopy on Thursday. He is going to hold apixaban for 3 days. He is taking Multaq and has not had any further palpitations. Blood pressure initially was elevated but repeat blood pressure is 130/60. Taking medications regularly otherwise. Overall clinically stable. 04/27/2024: He is here for follow-up. In 12/28/2023 he presented with seizure and chest pain. He ruled in for NSTEMI. He was taken urgently for cardiac catheterization which showed plaque rupture with thrombus in the RCA which was treated with drug-eluting stent. He has done well since then. He is saying that he has been getting frequent seizures and he had seizures in December and February. He has been given a nasal spray by the neurologist which his family gives to him during seizure which breaks it quickly. His Keppra dose has been increased and he is due to get EEG done. 08/15/2024: He returns for follow-up. He had seizures in April but since then he has been stable. He is seeing Dr. Wynne at [facility] and we will be getting further testing including EEG. In sinus rhythm on EKG. Denying any palpitations, chest discomfort shortness of breath. He has been active at work and is working full-time at this point. [facility] Medical History Seizures Elevated cholesterol Renal calculi Gout ACS (acute coronary syndrome) PAF (paroxysmal atrial fibrillation) HTN (hypertension) Diabetes mellitus Obstructive sleep apnea Surgical History Hx of cardiac catheterization History of right knee surgery Hx of colonoscopy Hx of hernia repair Family History Father CVD (cardiovascular disease) Stroke Arteriosclerosis of bypass graft of coronary artery Diabetes CHF (congestive heart failure) Mother No problems noted. Social History Household Members: Spouse Housing: House Do you presently have visiting nurse or other home services: No Alcohol intake: current Alcohol intake frequency: holidays/special occasions only Patient Tobacco Use Status: Never used Tobacco service: Yes Current occupational status: employed Review of Systems Const Denies chills, Denies fatigue, Denies fever(s), Denies frequent falls, Denies weakness, Denies weight gain and Denies weight loss ENT Denies dizziness Card Denies chest pain, Denies leg edema, Denies lightheadedness, Denies palpitations, Denies dyspnea and Denies dyspnea on exertion Resp Denies cough, Denies dyspnea and Denies dyspnea on exertion GI Denies hematochezia Musc Denies abnormal gait, Denies muscle weakness, Denies numbness, Denies radiating pain into limb and Denies tingling Neuro Denies abnormal gait, Denies dizziness, Denies frequent falls, Denies numbness, Denies tingling and Denies weakness Endo Denies fatigue and Denies palpitations Physical Exam Vital Signs: Last Vital Signs Pulse 67 08/15/24 08:56 BP 130/64 08/15/24 08:56 BMI result Body Mass Index 35.0 GENERAL APPEARANCE: in no acute distress, pleasant. NECK: no carotid bruit, no jugular venous distention. SKIN: no suspicious lesions, warm and dry. HEART: no murmurs, regular rate and rhythm. LUNGS: clear to auscultation bilaterally. ABDOMEN: soft, nontender. EXTREMITIES: no edema. PERIPHERAL PULSES: equal. NEUROLOGIC: No gross deficits, AAO X 3 Office Procedures EKG Details: Sinus rhythm 67 beats per minute, normal axis, inferior infarct, QTC 418 milliseconds. [id number], Complete Assessment & Plan Assessment & Plan (1) Stented coronary artery: Code(s): Z95.5 - Presence of coronary angioplasty implant and graft Category: Medical (2) PAF (paroxysmal atrial fibrillation): Code(s): I48.0 - Paroxysmal atrial fibrillation Category: Medical (3) Stable angina: Code(s): I20.8 - Other forms of angina pectoris Category: Medical Plan Pleasant 64 year gentleman who is here for follow-up. He was seen in December 2023 for chest pain and NSTEMI and underwent cardiac catheterization and PCI to RCA. He is currently on apixaban and Plavix. He is on atorvastatin 80 mg daily. He is denying any chest discomfort shortness of breath. He has been active at work. He is getting further workup for seizure/night terrors through Neurology at [facility]. In sinus rhythm. On Eliquis for anticoagulation. He should have once a year fasting lipid panel. Follow-up with us in 4 months. Thank you for allowing me to participate in the care of your patient. Please feel free to contact me if you have any questions. Coding Level of Care Code Est Pt Level 4 (00729) Diagnoses Stented coronary artery Z95.5 PAF (paroxysmal atrial fibrillation) I48.0 Stable angina I20.8 CPT Codes EKG - CPT: 16899-[id number], Complete ([id number])
--- OUTSIDE RECORDS SUMMARY | 2024-08-15 09:13 | XMS_ITS ---
Author Organization [facility] Address [address] [place] [address] Care Team Providers Care Jinriksha Driver Name Role Phone Lu Goel M.D. Primary Care Provider Un available Naif Phipps Unavailable [phone] REASON FOR VISIT medication change on dosing MEDICATIONS Medication SIG (Take, Route, Fr equency, Duration) Notes Start Date End Date Status metFORMIN HCl 500 MG 1 tablet with a meal Orally bid Active Januvia 50 MG 1 tablet Orally at night Active Encounters Encounter Location Date Provider Diagnosis [facility] [address] [place] [address] 08/21/2023 Naif Phipps PLAN OF TREATMENT Medication Medication Name Sig Start Date Stop Date Notes metFORMIN HCl 500 MG 1 tablet with a meal Orally bid Januvia 50 MG 1 tablet Orally at night
--- OUTSIDE RECORDS SUMMARY | 2024-08-15 09:13 | XMS_ITS ---
Author Organization [facility] Address [address] [place] [address] Care Team Providers Care Mapping Pilot Name Role Phone Lu Goel M.D. Primary Care Provider Un available DesireNaif Unavailable [phone] REASON FOR VISIT screening,hx polyps PROBLEMS Problem Type ICD Code Onset Dates Problem Status W/U Status Risk SNOMED Code Notes Problem Personal history of colonic polyps (Z86.010) Active confirmed History of polyp of colon (situation) (904901652) Problem Diverticulosis of large intestine without perforation or abscess without bleeding (K57.30) Active confirmed Diverticul ar disease of colon ([id number]) Encounters Encounter Location Date Provider Diagnosis [facility] [place] [place] Outpatient [address] [place] [phone] 08/28/2023 Naif Desire Encounter for scre ening colonoscopy Z12.11 ; Personal history of colonic polyps Z86.010 ; Diverticulosis of large intestine without perforation or abscess without bleeding K57.30 and Other hemorrhoids K64.8 ASSESSMENTS Encounter Date Diagnosis Assessment Notes Treatment Notes Treatment Clinical Notes 08/28/2023 Encounter for screening colonoscopy (ICD-10 - Z12.11) 08/28/2023 Personal history of colonic polyps (ICD-10 - Z86.010) 08/28/2023 Diverticulosis of large intestine without perforation or abscess without bleeding (ICD-10 - K57.30) 08/28/2023 Other hemorrhoids (ICD-10 - K64.8) PLAN OF TREATMENT No Information
--- OUTSIDE RECORDS SUMMARY | 2024-08-15 09:14 | XMS_ITS | Patient Health Record ---
Author Organization [facility] Address [address] [place] [address] Care Team Providers Care Financial Services Professional Name Role Phone Lu Goel M.D. Primary Care Provider Un available Phipps Naif Unavailable [phone] ALLERGIES No Known Allergies RESULTS Component Value Reference Range Notes Glucose, Whole Blood Reviewed date:08/28/2023 06:25:42 PM Interpretation: Performing Lab:[facility], [address] [place] [id number] Notes/Report: Glucose, Whole Blood 151 60-115 mg/dL METER # : [id number] REASON FOR REFERRAL No Information MEDICATIONS Medication SIG (Take, Route, Frequency, Duration) Notes Start Date End Date Status Multaq 400 MG TAKE 1 TABLET BY ERIN TH TWICE A DAY Oral for 90 Active levETIRAcetam 500 MG TAKE 2 TABLETS BY M OUTH TWICE A DAY Oral for 90 Active Pantoprazole Sodium 40 MG TAKE 1 TABLET BY MOUTH EVERY DAY for 90 Active Eliquis 5 MG TAKE 1 TABLET BY ERIN TH TWICE A DAY Oral for 90 Active Melatonin 10 MG as directed Orally O nce a day Active Magnesium Active Metoprolol Succinate ER 25 MG Oral for 90 Active metFORMIN HCl 500 MG 1 tablet with a dot l Orally bid Active Atorvastatin Calcium 20 MG 1 tablet Oral ly Once a day Active Januvia 50 MG 1 tablet Orally at night Active Losartan Potassium 50 MG 1 tablet Orally Once a day Active Allopurinol 300 MG 1 tablet Orally Once a day Active IMMUNIZATIONS Vaccine Route Administration Date Status Comme nts Influenza Unknown 06/10/2023 Refused SOCIAL HISTORY Tobacco Use: Social History Observation Description Date Details (start date - stop date) Never Smoker NA - NA Sex Assigned At : Social History Observation Description Sex Assigned At Unknown Tobacco Use/Smoking Question Answer Notes Patient is a nonsmoker Alcohol Screen Question Answer Notes Did you have a drink contain ing alcohol in the past year? Yes How often did you have a dri nk containing alcohol in the past year? Monthly or less (1 point) How many drinks did you have on a typical day when you were drinking in the past year? 1 or 2 drinks (0 point) How often did you have 6 or more drinks on one occasion in the past year? Never (0 point) Points 1 Interpretation Negative PROBLEMS Problem Type ICD Code Onset Dates Problem Status W/U Status Risk SNOMED Code Notes Problem Encounter for screening for malignant neoplasm of colon (Z12.11) Active confirmed 887088767 Problem Pre-procedural examination (Z01.818) Active confirmed 156299981313419 Problem History of adenomatous polyp of colon (Z86.010) Active confirmed 203036329 Problem Diarrhea, unspecified type (R19.7) Active confirmed 58219547 Problem Personal history of colonic polyps (Z86.010) Active confirmed History of poly p of colon (situation) (670295916) Problem Diverticulosis of large intestine without perforation or abscess without bleeding (K57.30) Active confirmed Diverticul ar disease of colon (105604322) Encounters Encounter Location Date Provider Diagnosis [facility] [address] [place] [phone] 08/28/2023 Naif Phipps Encounter for screen ing colonoscopy Z12.11 ; Personal history of colonic polyps Z86.010 ; Diverticulosis of large intestine without perforation or abscess without bleeding K57.30 and Other hemorrhoids K64.8 [facility] [address] [place] [phone] 08/16/2023 Naif Phipps [facility] [address] [place] [phone] 08/21/2023 Naif Phipps ASSESSMENTS Encounter Date Diagnosis Assessment Notes Treatment Notes Treatment Clinical Notes 08/28/2023 Encounter for screening colonoscopy (ICD-10 - Z12.11) 08/28/2023 Personal history of colonic polyps (ICD-10 - Z86.010) 08/28/2023 Diverticulosis of large intestine without perforation or abscess without bleeding (ICD-10 - K57.30) 08/28/2023 Other hemorrhoids (ICD-10 - K64.8) PLAN OF TREATMENT Pending Test Test Name Order Date CELIAC PANEL #10 06/10/2023 Future Test Test Name Order Date COLONOSCOPY 02/02/2018 COLONOSCOPY 06/10/2023 Insurance Providers Payer Name Payer Address Payer Phone Subscriber Number Group Number Insured Name Patient Relationship to Insured Coverage Start Date Coverage End Date [facility] [address] [place], [place] [id number] COLTON [place]ARA Self - patient is the insured MEDICAL (GENERAL) HISTORY Medical History History ICD Code NIDDM Hypertension Hyperlipidemia GERD--EGD in 2005 with a HH--no esophagi tis nor Vincent's esophagus Colonoscopy in 2005 was nega tive except for internal hemorrhoids and mild diverticulosis Gout Denies OR,CVA,Lung disease,renal disease Kidney stones Afib--sees Dr. Isaac-had a negative ca rdiac cath in 2022 Colonoscopy 03/2018 with 2 tubular adenom as removed Surgical History Surgery Date(Month/Year) Right inguinal hernia Knee surgery Hospitalization History Reason Date(Month/Year)
--- OUTSIDE RECORDS SUMMARY | 2024-08-15 09:14 | XMS_ITS ---
Author Organization [facility] Address [address] [place] [address] Care Team Providers Care Civil Engineering Professor Name Role Phone Lu Goel M.D. Primary Care Provider Un available Naif Phipps Unavailable [phone] REASON FOR VISIT Januvia Encounters Encounter Location Date Provider Diagnosis [facility] [address] [place] [address] 08/16/2023 Naif Phipps PLAN OF TREATMENT No Information
== END 2024-08-15 09:27 | disposition home or self-care (01) ==
PROVIDERS: PCP Family Medicine; Visit Provider Internal Medicine Cardiovascular Disease
DX: Z95.5 Presence of coronary angioplasty implant and graft (principal); I48.0 Paroxysmal atrial fibrillation; I20.89 Other forms of angina pectoris
CPT/HCPCS: 93010; 99214

== ENCOUNTER → 2024-08-15 08:47 | Outpatient (BNVA) | payer OTHER, SELFPAY | PROVIDERS: PCP Family Medicine; Visit Provider Internal Medicine Cardiovascular Disease | DX: I48.0 Paroxysmal atrial fibrillation (principal); I20.89 Other forms of angina pectoris; I25.2 Old myocardial infarction; Z79.01 Long term (current) use of anticoagulants; Z79.02 Long term (current) use of antithrombotics/antiplatelets; Z79.899 Other long term (current) drug therapy; Z95.5 Presence of coronary angioplasty implant and graft | CPT/HCPCS: 93005 ==

== ENCOUNTER 2024-11-26 12:00 | Outpatient (AMB) | payer OTHER, SELFPAY ==
[2024-11-26 14:13] VITALS: BP 130/90; PULSE 79; RESP 17; TEMP 36.8; O2SAT 96; BMI 34.2
--- NOTE | 2024-11-26 14:13 | AM.OFFWIN_ITS ---
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 He reports that the coughing fits sometimes leave him feeling dizzy, and the ear pain started after a particular likely uncomfortable coughing fit. He does have a history of 2 episodes of bronchitis, which feels similar to him to his current situation. He checked for COVID and was negative at home. He denies fever chills, chest pain or shortness of breath, nausea vomiting or diarrhea, dizziness or weakness, myalgias or malaise, or other significant associated symptoms. [facility] Medical History Seizures Elevated cholesterol Renal calculi Gout ACS (acute coronary syndrome) PAF (paroxysmal atrial fibrillation) HTN (hypertension) Diabetes mellitus Obstructive sleep apnea Surgical History Hx of cardiac catheterization History of right knee surgery Hx of colonoscopy Hx of hernia repair Family History Father CVD (cardiovascular disease) Stroke Arteriosclerosis of bypass graft of coronary artery Diabetes CHF (congestive heart failure) Mother No problems noted. Social History Household Members: Spouse Housing: House Do you presently have visiting nurse or other home services: No Alcohol intake: current Alcohol intake frequency: holidays/special occasions only Patient Tobacco Use Status: Never used Tobacco service: Yes Current occupational status: employed Review of Systems Const All systems reviewed & are unremarkable except as noted in HPI and below Physical Exam Vital Signs: Last Vital Signs Temp 98.3 F 11/26/24 14:13 Pulse 79 11/26/24 14:13 Resp 17 11/26/24 14:13 BP 130/90 H 11/26/24 14:13 Pulse Ox 96 11/26/24 14:13 Oxygen Delivery Method Room Air 11/26/24 14:13 BMI result Body Mass Index 34.2 Const General: cooperative, no acute distress, alert, awake, Physically active and well groomed; No diaphoretic, intoxicated appearing, poor hygiene or tired appearing Nutritional Appearance: average body habitus Orientation/consciousness: oriented to person HEENT Head: Yes normal to inspection, Yes normocephalic and Yes atraumatic Ears: hearing grossly normal bilaterally, external ears normal, EAC's normal and TM abnormal (Bilateral erythema) with fluid behind the TM General nose exam: Normal external nose present, Normal septum present, Abnormal mucous membranes and turbinates present and Nasal discharge present Face and sinus: Yes normal facial exam, Yes sinuses nontender and Yes face symmetric Mouth: Normal oral and palatal mucosa present, lip normal and tongue normal Throat: Yes tonsils normal, Yes uvula midline, No peritonsillar mass, No postnasal drainage, No uvular edema and No cobblestoning Eyes General: appearance normal, both eyes and all related structures Neck Neck: Yes normal visual inspection, Yes no lymphadenopathy, Yes trachea midline, Yes supple and No anterior neck swelling Chest Chest palpation & inspection: normal palpation of entire chest wall Resp Effort & Inspection: normal respiratory effort, able to speak in complete sentences, normal respiratory pattern, no audible wheezes, Actively coughing, respiratory effort not decreased, no grunting, not labored, no nasal flaring, no pursed lip breathing, no respiratory distress, no retractions, not tachypneic, no tracheal deviation, no tripod positioning, no use of accessory muscles, No prolonged expiratory phase and symmetric chest movement Auscultation: clear to auscultation bilaterally, no crackles, no rales, rhonchi, no wheezes, lung sounds not diminished and No rub present Cardio Palpation: normal PMI Rate: regular rate Rhythm: regular rhythm Heart sounds: S1 normal heart sound present and S2 normal heart sound present Skin Other: Good color, warm and dry Neuro General: oriented to person Psych Appearance: grossly normal Mental Status: mental status grossly normal Speech and movement: Normal speech and movement present Affect: normal affect Attitude: cooperative Thought process: Normal thought process present Insight: Good insight present (Psych) Judgement: Good judgement present (Psych) Assessment & Plan Assessment & Plan (1) Acute bronchitis: Code(s): J20.9 - Acute bronchitis, unspecified Qualifiers: Bronchitis organism: unspecified organism Qualified Code(s): J20.9 - Acute bronchitis, unspecified Plan Patient is a 65-year-old male with a history of acute coronary syndrome and paroxysmal AFib. Likely with acute bronchitis, for which I wrote him short course of prednisone, and albuterol inhaler can be used as needed with coughing fits. Also to cover possible early pneumonia and his bilateral otitis media, I wrote him for a course of Augmentin. As he is not short of breath and has stable vitals and no underlying respiratory disorders, chest x-ray deferred at this time. Pending flu COVID and RSV results for underlying etiology. He reports he does have follow up with his primary care in 3 days, but he can return in the meantime if symptoms persist or worsen to have chest x-ray if needed, and he knows to go to the emergency department with worrisome symptoms. Orders: Orders SARS-CoV2/FLU/RSV 11/26/24 R09.89 - Other specified symptoms and signs involving the circulatory and respiratory systems Medications: New benzonatate 200 mg PO BID-TID PRN 30 caps 0RF cough albuterol sulfate 90 mcg/actuation 1 inh inhalation QID PRN 8.5 grams 0RF shortness of breath or wheezing amoxicillin-pot clavulanate 875-125 mg 1 tab PO BID 14 tabs 0RF prednisone 40 mg (2 x 20 mg) PO DAILY 10 tabs 0RF 5 days Coding Level of Care Code New Pt Level 4 (56478) Diagnoses Acute bronchitis, unspecified organism J20.9 Bronchitis organism: unspecified organism
== END 2024-11-26 14:59 | disposition home or self-care (01) ==
LOC: HO.HMCWIC 12:00
PROVIDERS: PCP Family Medicine; Visit Provider Physician Assistant Medical
DX: J20.9 Acute bronchitis, unspecified (principal)

== ENCOUNTER 2024-11-26 12:00 | Outpatient (REF) | payer OTHER, SELFPAY ==
--- OUTSIDE RECORDS SUMMARY | 2024-11-26 14:40 | XMS_ITS | Referral Summary ---
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 pH 10/23/2024 5:17 AM EDT [facility] pCO2, POCT 35.5(L) 41 - 51 mm Hg 10/23/2024 5:17 AM EDT [facility] pO2, POCT 64(H) 35 - 40 mm Hg 10/23/2024 5:17 AM EDT [facility] Base Excess, POCT -6(L) 0 - 3 mmol/L 10/23/2024 5:17 AM EDT [facility] HCO3, POCT 19.3(L) 23 - 28 mmol/L 10/23/2024 5:17 AM EDT [facility] TCO2, POCT 20(L) 24 - 29 mmol/L 10/23/2024 5:17 AM EDT [facility] Saturated O2, POCT 91(H) 70 - 75 % 10/23/2024 5:17 AM EDT [facility] Manjit's Test, POCT N/A 10/23/2024 5:17 AM EDT [facility] Blood 10/23/2024 4:19 AM EDT 10/23/2024 5:17 AM EDT us Eva Delgado MD LAB POCT ORDERABLES - D EVICE Final Result [facility] [address] [place] [address], [place] * (ABNORMAL) CBC Auto Differential (10/23/2024 4:14 AM EDT) Only the most recent of2 resultswithin the time period is included. WBC 10.2 3.8 - 10.8 10*3/uL 10/23/2024 4:40 AM EDT [facility] RBC 5.36 4.20 - 5.80 10*6/uL 10/23/2024 4:40 AM EDT [facility] Hemoglobin 15.3 13.2 - 17.1 g/dL 10/23/2024 4:40 AM EDT [facility] Hematocrit 46.2 38.5 - 50.0 % 10/23/2024 4:40 AM EDT [facility] MCV 86.2 80.0 - 100.0 fL 10/23/2024 4:40 AM EDT [facility] MCH 28.5 27.0 - 33.0 pg 10/23/2024 4:40 AM EDT [facility] MCHC 33.1 32.0 - 36.0 g/dL 10/23/2024 4:40 AM EDT [facility] RDW 13.1 11.0 - 15.0 % 10/23/2024 4:40 AM EDT [facility] Platelets 190 140 - 400 10*3/uL 10/23/2024 4:40 AM EDT [facility] MPV 10.5 7.5 - 12.5 fL 10/23/2024 4:40 AM EDT [facility] Neutrophil % 82.9 % 10/23/2024 4:40 AM EDT [facility] Immature Grans % 0.3 0.0 - 0.9 % 10/23/2024 4:40 AM EDT [facility] Lymphocyte % 9.6 % 10/23/2024 4:40 AM EDT [facility] Monocyte % 5.9 % 10/23/2024 4:40 AM EDT [facility] Eosinophil % 0.9 % 10/23/2024 4:40 AM EDT [facility] Basophil % 0.4 % 10/23/2024 4:40 AM EDT [facility] Neutrophil # 8.50(H) 1.50 - 7.80 10*3/uL 10/23/2024 4:40 AM EDT [facility] Immature Grans # 0.03 <=0.03 10*3/uL 10/23/2024 4:40 AM EDT [facility] Lymphocyte # 1.00 0.85 - 3.90 10*3/uL 10/23/2024 4:[address] [facility] Monocyte # 0.60 0.20 - 0.95 10*3/uL 10/23/2024 4:[address] [facility] Eosinophil # 0.10 0.02 - 0.50 10*3/uL 10/23/2024 4:[address] [facility] Basophil # <0.03 0.00 - 0.20 10*3/uL 10/23/2024 4:40 AM EDT [facility] nRBC % 0.0 /100 WBCs 10/23/2024 4:40 AM EDT [facility] nRBC # <0.01 <0.01 10*3/uL 10/23/2024 4:40 AM EDT [facility] Blood Structure of peripheral vein / Unknown Venipuncture / Unknown 10/23/2024 4:14 AM EDT 10/23/2024 4:32 AM EDT us Eva Delgado MD LAB BLOOD ORDERABLES Fi nal Result [facility] [address] [place] [address], * (ABNORMAL) Basic metabolic panel (10/23/2024 4:14 AM EDT) Only the most recent of2 resultswithin the time period is included. NA 135 135 - 145 mmol/L 10/23/2024 5:02 AM EDT [facility] K 4.2 3.5 - 5.3 mmol/L 10/23/2024 5:02 AM EDT [facility] Cl 98 98 - 107 mmol/L 10/23/2024 5:02 AM EDT [facility] CO2 18(L) 22 - 32 mmol/L 10/23/2024 5:02 AM EDT [facility] BUN 21 7 - 23 mg/dL 10/23/2024 5:02 AM EDT [facility] Creatinine 1.27 0.60 - 1.30 mg/dL 10/23/2024 5:02 AM EDT [facility] Glucose 360(H) 65 - 99 mg/dL 10/23/2024 5:02 AM EDT [facility] Calcium 9.7 8.6 - 10.5 mg/dL 10/23/2024 5:02 AM EDT [facility] Anion Gap 19(H) 5 - 15 10/23/2024 5:02 AM EDT [facility] eGFR 63 >=60 mL/min/1. 73m2 10/23/2024 5:02 AM EDT [facility] Comment:The estimated glomer ular filtration rate (eGFR) is calculated using a new formula developed by the NKF-ASN task force to eliminate race-based correction factors. The new formula uses serum/plasma creatinine, age, and gender to determine eGFR. A value below 60mls/min might indicate kidney disease and will be flagged. For additional information, see Eugene et al, Am J Kidney Dis. 2021;79(2):268- 288, A Unifying Approach for GFR estimation: Recommendations of the NKF-ASN Task Force on Reassessing the Inclusion of Race in Diagnosing Kidney Disease . Blood Structure of peripheral vein / Unknown Venipuncture / Unknown 10/23/2024 4:14 AM EDT 10/23/2024 4:31 AM EDT us Eva Delgado MD LAB BLOOD ORDERABLES nal Result [facility] [address] [place] [address], * Continuous EEG Monitoring (10/22/2024 10:25 AM EDT) Narrative [facility] - 10/22/2024 10:25 AM EDT Eva Delgado MD ? 10/23/2024 11:45 AM CONTINUOUS VIDEO-EEG REPORT Patient: Cristopher Guzman : 1960 Age at study time: 64 y.o. male Study information: EEG type: continuous EEG with video Indication for EEG: clinical suspicion of epilepsy or seizure Start: 10/21/2024, 10:00am Stop: 10/22/2024, 9:00am Sensor group: 10-20 system (21 electrodes), single channel ECG, [employer] equipment Medications include: Scheduled Meds:allopurinoL, 300 mg, oral, Daily apixaban, 5 mg, oral, q12h [facility] atorvastatin, 80 mg, oral, Nightly clopidogreL, 75 mg, oral, Daily dronedarone, 400 mg, oral, q12h JOVANNY insulin lispro, 1-5 Units, subcutaneous, 3x daily with meals insulin lispro, 1-5 Units, subcutaneous, Nightly losartan, 50 mg, oral, Nightly magnesium oxide, 361.95 mg of elemental magnesium, oral, 2x daily melatonin, 9.75 mg, oral, Nightly metoprolol succinate XL, 50 mg, oral, Daily pantoprazole DR, 40 mg, oral, Daily sodium chloride, 2.5-10 mL, intravenous, See admin instructions And sodium chloride, 2.5-10 mL, intravenous, q12h JOVANNY Continuous Infusions: PRN Meds:.PRN medications: dextrose OR dextrose OR dextrose OR glucagon, flecainide, LORazepam Modulators and procedures: none EEG background: Symmetry: symmetric Predominant background frequency: alpha Other background frequencies: beta [>13 Hz], theta Voltage: normal Anterior-posterior (AP) gradient: present Posterior dominant ( alpha ) rhythm: present: 8-9 Hz Continuity: continuous Reactivity: reactive State changes: present with normal stage N2 sleep transients (K-complexes and sleep spindles) Cyclic alternating pattern of encephalopathy (CAPE): absent Breach effect: absent Physiologic patterns and patterns of uncertain significance: none significant EEG artifacts: none significant Interictal abnormalities: Frequency/voltage abnormalities: none Sporadic discharges: none Rhythmic and periodic patterns (RPPs): none Brief potentially ictal rhythmic discharges (BIRDs): none Episodes: Electrographic and electroclinical seizures: none Marked events and other clinical events: none Polygraphic channels: ECG rhythm: generally regular ECG rate (typical): 60 bpm ECG comments: none EEG classification: NORMAL Daily summary of the findings: Normal EEG background, awake and asleep Clinical significance: Normal study Additional comments: No epileptiform discharges or electrographic seizures are seen Eva Delgado MD 10/22/2024 10:25 AM J Clin Neurophysiol. 2020;38(1):1-29 Clin Neurophysiol. 2016;128(11):0315-8799 CONTINUOUS VIDEO-EEG CUMULATIVE SUMMARY TO DATE: Medications: 10/20: LEV 2250mg AM / 1000mg PM 10/21: LEV 1000mg AM / OFF EEG dates: 10/20 - 10/22/2024 Cumulative interictal EEG findings: none Seizures/events captured (by date): none Summary findings are drawn from prior 24-hour video-EEG reports as interpreted by: Dr. Delgado (10/20/2024-present). Please refer to the corresponding 24-hour reports for full details on particular findings. us Eva Delgado MD NEUROLOGY ORDERABLES Ed ited Result - Final [facility] * Continuous EEG Monitoring (10/21/2024 3:01 PM EDT) Narrative [facility] - 10/21/2024 3:01 PM EDT Eva Delgado MD ? 10/21/2024 ??3:16 PM CONTINUOUS VIDEO-EEG REPORT Patient: Cristopher Guzman : 1960 Age at study time: 64 y.o. male Study information: EEG type: continuous EEG with video Indication for EEG: clinical suspicion of epilepsy or seizure Start: 10/20/2024, 9:00pm Stop: 10/21/2024, 10:00am Sensor group: 10-20 system (21 electrodes), single channel ECG, [employer] equipment Medications include: Scheduled Meds:allopurinoL, 300 mg, oral, Daily apixaban, 5 mg, oral, q12h JOVANNY atorvastatin, 80 mg, oral, Nightly clopidogreL, 75 mg, oral, Daily dronedarone, 400 mg, oral, q12h JOVANNY insulin lispro, 1-5 Units, subcutaneous, 3x daily with meals insulin lispro, 1-5 Units, subcutaneous, Nightly levETIRAcetam, 1,000 mg, oral, 2x daily losartan, 50 mg, oral, Nightly magnesium oxide, 361.95 mg of elemental magnesium, oral, 2x daily melatonin, 9.75 mg, oral, Nightly metoprolol succinate XL, 50 mg, oral, Daily pantoprazole DR, 40 mg, oral, Daily sodium chloride, 2.5-10 mL, intravenous, See admin instructions And sodium chloride, 2.5-10 mL, intravenous, q12h JOVANNY Continuous Infusions: PRN Meds:.PRN medications: dextrose OR dextrose OR dextrose OR glucagon, flecainide, LORazepam Modulators and procedures: none EEG background: Symmetry: symmetric Predominant background frequency: alpha Other background frequencies: beta [>13 Hz], theta Voltage: normal Anterior-posterior (AP) gradient: present Posterior dominant ( alpha ) rhythm: present: 8-9 Hz Continuity: continuous Reactivity: reactive State changes: present with normal stage N2 sleep transients (K-complexes and sleep spindles) Cyclic alternating pattern of encephalopathy (CAPE): absent Breach effect: absent Physiologic patterns and patterns of uncertain significance: none significant EEG artifacts: none significant Interictal abnormalities: Frequency/voltage abnormalities: none Sporadic discharges: none Rhythmic and periodic patterns (RPPs): none Brief potentially ictal rhythmic discharges (BIRDs): none Episodes: Electrographic and electroclinical seizures: none Marked events and other clinical events: At 23:12 the patient was noted to have one minute of lateral head shaking at 2-3 Hz, with eyes closed. The EEG demonstrated drowsiness with rhythmic movement artifact most prominent in the left posterior parasagittal region, with no definite epileptiform features. Polygraphic channels: ECG rhythm: generally regular ECG rate (typical): 60 bpm ECG comments: none EEG classification: NORMAL Daily summary of the findings: Normal EEG background, awake and asleep Clinical significance: Normal study Additional comments: No epileptiform discharges or electrographic seizures are seen Eva Delgado MD 10/21/2024 3:01 PM J Clin Neurophysiol. 2020;38(1):1-29 Clin Neurophysiol. 2017 Jun;128(11):0178-4895 CONTINUOUS VIDEO-EEG CUMULATIVE SUMMARY TO DATE: Medications: 10/20: LEV 2250mg AM / 1000mg PM 10/21: LEV 1000mg AM / OFF EEG dates: 10/20 - 10/21/2024 Cumulative interictal EEG findings: Seizures/events captured (by date): Summary findings are drawn from prior 24-hour video-EEG reports as interpreted by: Dr. Delgado (10/20/2024-present). Please refer to the corresponding 24-hour reports for full details on particular findings. us Eva Delgado MD NEUROLOGY ORDERABLES Fi nal Result [facility] * EMU EEG (10/20/2024 8:36 PM EDT) Narrative [facility] - 10/24/2024 9:12 AM EDT David Wilson MD ? 10/24/2024 ??9:41 AM [facility] CONTINUOUS VIDEO-EEG REPORT Patient: Cristopher Guzman : 1960 Start Date/Time: 10/23/2024, 9:27 AM Stop Date/Time: 10/24/2024, 9:27 AM Object: 64 y.o. male who presents clinical suspicion of epilepsy or seizure Neuroactive Medications: Scheduled Meds:allopurinoL, 300 mg, oral, Daily apixaban, 5 mg, oral, q12h JOVANNY atorvastatin, 80 mg, oral, Nightly chlorhexidine, 15 mL, mucous membrane, q12h JOVANNY clopidogreL, 75 mg, oral, Daily dronedarone, 400 mg, oral, q12h JOVANNY insulin lispro, 1-5 Units, subcutaneous, 3x daily with meals insulin lispro, 1-5 Units, subcutaneous, Nightly levETIRAcetam, 2,250 mg, oral, q12h JOVANNY losartan, 50 mg, oral, Nightly melatonin, 9.75 mg, oral, Nightly metoprolol succinate XL, 50 mg, oral, Daily OXcarbazepine, 300 mg, oral, q12h JOVANNY pantoprazole DR, 40 mg, oral, Daily sodium chloride, 2.5-10 mL, intravenous, See admin instructions And sodium chloride, 2.5-10 mL, intravenous, q12h JOVANNY Continuous Infusions: PRN Meds:.PRN medications: dextrose OR dextrose OR dextrose OR glucagon, flecainide Recording Conditions: Continuous 21 electrode EEG (International 10-20 system) with video and single channel EKG recording on [employer] equipment Activation procedures: none EEG Background: Symmetry: symmetric Predominant background frequency: beta [>13 Hz], alpha Posterior dominant ( alpha ) rhythm: present: 8-9 Hz Continuity: continuous Reactivity: reactive State changes: present with normal stage N2 sleep transients (K-complexes and sleep spindles) Voltage: normal Anterior-posterior (AP) gradient: present Breach effect: absent Other: Prominent artifacts: none significant, ECG artifact Sporadic Epileptiform Discharges: Occasional bilateral (independent) temporal spike waves Rhythmic and Periodic Patterns (RPPs): none Brief Potentially Ictal Rhythmic Discharges (BIRDs): none Electrographic and Electroclinical Seizures: none Marked Events and Other Clinical Events: none Single Channel [employer]on Electrician: Rhythm: regular Rate (typical): 70-90 bpm Other: none EEG Classification: ABNORMAL Daily Summary of Findings: [] There are occasional bilateral (independent) temporal sharp waves. 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 There are no electrographic seizures during this part of the recording. Of note, a prior section of this recording captured the patient's typical electroclinical seizures. Additional Comments: There are no marked clinical events David Wilson MD, MPH Epileptologist Reference: [place] Clinical Neurophysiology Society's Standardized Critical Care EEG Terminology: 2020 Version. J Clin Neurophysiol. 2020Aug 10;38(1):1-29. ?? CONTINUOUS VIDEO-EEG CUMULATIVE SUMMARY TO DATE: EEG dates: 10/23/2024 - 10/24/2024 - Interictal EEG discharges: Yes - Seizures/Events Captured (by date): None (see report from Dr. Anju Marte that captured the patients typical electroclinical seizures from 10/23/2024) (This may be a multi-part series. Please refer to daily interpretations for further details) ?? Eva Delgado MD NEUROLOGY ORDERABLES Fi nal Result Performing Organization Address City/[facility] [place]/[facility] Co de Phone Number [facility] * (ABNORMAL) Iron Saturation (10/20/2024 7:59 PM EDT) Iron Saturation 17(L) 20 - 50 % 4:09 AM EDT [facility] Iron 71 45 - 160 ug/dL 10/21/2024 4:09 AM EDT [facility] Transferrin 325 200 - 360 mg/dL 10/21/2024 4:09 AM EDT [facility] Total Iron Binding Capacity 406 255 - 450 ug/dL 10/21/2024 4:09 AM EDT [facility] Blood Structure of peripheral vein / Unknown Venipuncture / Unknown 10/20/2024 7:59 PM EDT 10/20/2024 8:04 PM EDT Eva Delgado MD LAB BLOOD ORDERABLES Fi nal Result Performing Organization Address City/State/[facility] Co de Phone Number [facility] [address] [place] [address], * Ferritin (10/20/2024 7:59 PM EDT) Ferritin 24.2 23.0 - 336.0 ng/mL 10/21/2024 4:09 AM EDT [facility] Blood Structure of peripheral vein / Unknown Venipuncture / Unknown 10/20/2024 7:59 PM EDT 10/20/2024 8:04 PM EDT us Eva Delgado MD LAB BLOOD ORDERABLES Fi nal Result [facility] [address] [place] [address], * Hepatic Function Panel (10/20/2024 7:59 PM EDT) Total Protein 7.5 6.0 - 8.0 g/dL 10/20/2024 8:37 PM EDT [facility] Albumin 4.5 3.5 - 5.2 g/dL 10/20/2024 8:37 PM EDT [facility] Globulin, Total 3.0 2.1 - 4.2 g/dL 10/20/2024 8:37 PM EDT [facility] Bilirubin, Total 0.5 0.2 - 1.2 mg/dL 10/20/2024 8:37 PM EDT [facility] Bilirubin, Direct 0.2 <=0.4 mg/dL 10/20/2024 8:37 PM EDT [facility] Alkaline Phosphatase 93 35 - 129 U/L 10/20/2024 8:37 PM EDT [facility] AST 22 10 - 40 U/L 10/20/2024 8:37 PM EDT [facility] ALT 17 10 - 40 U/L 10/20/2024 8:37 PM EDT [facility] Bilirubin, Indirect 0.30 <=0.70 mg/dL 10/20/2024 8:37 PM EDT [facility] A/G Ratio 1.5 1.5 - 3.0 10/20/2024 8:37 PM EDT [facility] Blood Structure of peripheral vein / Unknown Venipuncture / Unknown 10/20/2024 7:59 PM EDT 10/20/2024 8:04 PM EDT us Eva Delgado MD LAB BLOOD ORDERABLES Fi nal Result [facility] [address] [place] [address], from Last 3 Months Insurance [employer] MCR Advance Directives * Presumed Full Code (Latest Code Status on File) Date Activated Date Inactivated Comments 10/20/2024 7:44 PM 10/24/2024 7:07 PM Care Teams Paver Operator Relationship Specialty Start Date End Date Lu Goel MD [address] [place] [id number] PCP - General Family Medicine 09/19/20
--- OUTSIDE RECORDS SUMMARY | 2024-11-26 14:41 | XMS_ITS | Clinical Summary ---
Author Organization [email or web address] [facility] Address [address] [place] [address] Care Team Providers Care Computer Information Systems Professor Name Role Phone Unknown, Primary Care Provider Unavailabl e Social History Tobacco Use Types Packs/Day Years Used Date Smoking Tobacco: Never Assessed Sex and Gender Information Value Date Recorded Sex Assigned at Not on file Gender Identity Not on file Sexual Orientation Not on file Job Start Date Occupation Industry Not on file Not on file Not on file Plan of Treatment Health Maintenance Due Date Last Done Comments Hepatitis C Screening 1960 Depression Screening 1971 Preventative Health Evaluation 1977 Colon Cancer Screening (Colonoscopy) 01/22/2004 Shingrix-Zoster Vaccine (1 o f 2) 2009 Fall Risk Assessment 01/22/2024 Pneumococcal Vaccine (1 of 1 - PCV) 01/22/2024 COVID-19 Vaccine (3 - 2023-2 5 season) 2024 11/17/2020, 10/25/2020 Influenza Vaccine (#1) 2024 , 05/01/2020, 05/07/2015 DTap / Tdap / Td (2 - Td or Tdap) 01/25/2031 01/25/2021 RSV Adult > 60+ Yrs or (1 - 1-dose 75+ series) 2034 Hepatitis B Vaccines Aged Out No long er eligible based on patient's age to complete this topic Pneumococcal Vaccine Aged Out No long er eligible based on patient's age to complete this topic RSV Ped < 20 months Aged Out No longe r eligible based on patient's age to complete this topic Care Teams Computer Information Systems Professor Relationship Specialty Start Date End Date Unknown, PCP - General 11/01/21
--- OUTSIDE RECORDS SUMMARY | 2024-11-26 14:41 | XMS_ITS ---
Author Organization [facility] Address [address] [place] [address] Care Team Providers Care Department Of Natural Resources Officer Name Role Phone Lu Goel M.D. Primary Care Provider Un available Naif Phipps Unavailable [phone] REASON FOR VISIT medication change on dosing Medications Medication SIG (Take, Route, Fr equency, Duration) Notes Start Date End Date Status metFORMIN HCl 500 MG 1 tablet with a meal Orally bid Active Januvia 50 MG 1 tablet Orally at night Active Encounters Encounter Location Date Provider Diagnosis [facility] [address] [place] [address] 08/21/2023 Naif Phipps Plan Of Treatment Medication Medication Name Sig Start Date Stop Date Notes metFORMIN HCl 500 MG 1 tablet with a meal Orally bid Januvia 50 MG 1 tablet Orally at night Progress Notes * COLTON GUZMAN PDOB:[birth year] (63 yo M)Acc No.[id number]:08/21/2023 Patient:?COLTON GUZMAN :1960???Age:63 Y???Sex:Male Address:[place] [address] * Refills? Continue metFORMIN HCl Tablet, 500 MG, Orally, 1 tablet with a meal, bid Continue Januvia Tablet, 50 MG, Orally, 1 tablet, at night * true * Date:? Generated for Printi ng/Faharmonyg/eTransmitting on:?11/26/2024 02:40 PM EDT
--- OUTSIDE RECORDS SUMMARY | 2024-11-26 14:41 | XMS_ITS ---
Author Organization [facility] Address [address] [place] [address] Care Team Providers Care Die Engraving Supervisor Name Role Phone Lu Goel M.D. Primary Care Provider Un available Desire Naif Unavailable [phone] REASON FOR VISIT screening,hx polyps Problems Problem Type SNOMED Code ICD Code Onset Dates Problem Status W/U Status Risk Notes Problem History of polyp of colon (situation) (815530299) Personal history of colonic polyps (Z86.010) Active confirmed Problem Diverticular disease of colon (276931886) Diverticulosis of large intestine without perforation or abscess without bleeding (K57.30) Active confirmed Encounters Encounter Location Date Provider Diagnosis [facility] Outpatient [address] [place] [address] [id number] 08/28/2023 Naif Desire Encounter for scre ening colonoscopy Z12.11 ; Personal history of colonic polyps Z86.010 ; Diverticulosis of large intestine without perforation or abscess without bleeding K57.30 and Other hemorrhoids K64.8 Assessments Encounter Date Diagnosis (ICD Code) Assessment Notes Treatment Notes Treatment Clinical Notes Section Notes 08/28/2023 Encounter for screening colonoscopy (ICD-10 - Z12.11) 08/28/2023 Personal history of colonic polyps (ICD-10 - Z86.010) 08/28/2023 Diverticulosis of large intestine without perforation or abscess without bleeding (ICD-10 - K57.30) 08/28/2023 Other hemorrhoids (ICD-10 - K64.8) Plan Of Treatment No Information Progress Notes * COLTON GUZMAN PDOB:[birth year] (64 yo M)Acc No.[id number]:08/28/2023 COLON WITH MAC Patient:COLTON CHANG Provider:?Naif Phipps MD :1960???Age:63 Y???Sex:Male Glenn e:08/28/2023 Address: [address] [facility] Pcp:Lu Goel M.D. Subjective: * Chief Complaints: * ???1. Screening,hx polyps. * Medical History:? Objective: * Vitals:? Assessment: * Assessment: 1.?Encounter for screening c olonoscopy - Z12.11 (Primary)???2.?Personal history of colonic polyps - Z86.010???3.?Diverticulosis of large intestine without perforation or abscess without bleeding - K57.30???4.?Other hemorrhoids - K64.8??? Plan: * Treatment: * Procedure Codes:?92120 DIAGN OSTIC COLONOSCOPY, Modifiers: 33 * Preventive Medicine:? ??TOMASZ Screening:?Colonoscopy?Was interval between colonoscopies three years or more??Yes,?Was last colonoscopy performed three or more years ago??Yes.? * * The named appointment provid er may or may not be the originator of this progress note, and it is not deemed complete until electronically signed by the appointment provider. Sign off status: Pending * Provider:?Naif Phipps MD Date:? 024 Generated for Eli urffin/Diane/eTransmitting on:?11/26/2024 02:40 PM EDT
--- OUTSIDE RECORDS SUMMARY | 2024-11-26 14:41 | XMS_ITS | Clinical Summary ---
Author Organization [facility] Address [address] [place] [address] Care Team Providers Care Engine Cowling Installer Name Role Phone Lu Goel MD Primary Care Provider [phone] Allergies No known active allergies Medications allopurinoL [...] from the original. PCP Lu Goel fax [phone] IS Ticket has been placed. Provider not listed in epic dictionary. Provider npi [phone] Problem Noted Date Diagnosed Date Epilepsy 10/24/2024 [...] night per month but subsequent to staring Nadia, he has not noted to have any. WORK-UP: [facility] (Dr. Dale) ~9 days, 2 episodes captured [...] high school then , no stroke or EVENT AV OPERATOR infection, no traumatic brain injury, re: FHx [...] - per patient request have referred to [facility] sleep clinic for further evaluation and [...] event in December 2023 resulting in a [place]. - increase from Keppra 1000mg BID to Keppra 1000mg in am, 1500mg in pm - ordered rescue medication Nayzilam 5mg daily PRN seizure >5min or >1 seizure in 24 hours - fax routine EEG report from [facility] to our clinic for our files - [...] arrangements for him to undergo this at [facility] - to ensure sufficient coverage with Keppra, [...] above in detail. Obstructive sleep apnea 09/07/2020 Encounters Date Type Department Care Team Description 11/17/2024 myChart Message [facility] [address] [place] [phone] Cheri Wu, RN Neurology 11/17/2024 Telephone [facility] [address] [place] [phone] Cheri Wu, RN Follow-up 10/31/2024 Telephone [facility] [address] [place] [phone] Cheri Wu, RN Appointment 10/25/2024 Telephone [facility] [address] [place] [address] Cheri Wu, RN Follow-up; Appointment 10/20/2024 6:05 PM EDT - 10/24/2024 5:06 PM EDT Hospital Encounter [facility] [address] [place] [address] Eva Delgado MD Bomprezzi, Roberto, MD PhD Seizure (Primary Dx); Nocturnal seizures Discharge Disposition: Home or Self Care () 10/19/2024 myChart Message [facility] [address] [place] [address] Jhon David Provider [facility] Video EEG Monitoring admission for 10/20/24 around 5-6 PM. 10/14/2024 Telephone [facility] [address] [place] [phone] Cheri Wu, CHRISTY questions about EMU 10/12/2024 9:30 AM [facility] Telehealth [facility] [address] [place] [phone] Randi Wynne MD Nocturnal seizures (Primary Dx); Obstructive sleep apnea 10/06/2024 External Contact [facility] [address] [place] [phone] David Wilson MD Nocturnal seizures 09/27/2024 Telephone [facility] [address] [place] [phone] Cheri Wu, RN Follow-up; Seizure 09/25/2024 myChart Message [facility] [address] [place] [phone] Randi Wynne MD Tvein episodes 09/02/2024 Telephone [facility] [address] [place] [phone] Cheri Wu, CHRISTY Follow-up from Last 3 Months Family History Relation Name Status Comments Father Mother Alive Social History Tobacco Use Types Packs/Day Years Used Date Smoking Tobacco: Never Smokeless Tobacco: Never Alcohol Use Standard Drinks/Week Comments Yes 2 (1 standard drink = 0.6 oz pur e alcohol) [facility] Utilities Answer Date Recorded In the past [...] Description 02/15/2025 3:00 PM EDT Office Visit [facility] [address] [place], [place] [phone] Randi Wynne MD [address] [place] [address] Health Maintenance Due Date Last Done Comments Cologuard 1960 Colon Cancer Screening 1960 Colonoscopy 1960 FOBT / Fit Test 1960 HIV Screening 1960 Sigmoidoscopy 1960 RSV Vaccine (60+ years old and patients) (1 - Risk 60-74 years 1-dose series) 2019 Alcohol/Substance Use Screening 08/10/2024 Depression Screening and Follow-Up 08/10/2024 Health Care Proxy Review 08/10/2024 Social Drivers of Health Annual Screening 08/10/2024 COVID-19 Vaccine ( season) 2024 05/08/2024, 05/25/2022, 02/02/2022, Additional history exists DTaP,Tdap,and Td Vaccines (2 - Td or Tdap) 01/25/2031 01/25/2021 Hepatitis C Screening Completed 05/06/2021 Pneumococcal Vaccine: 50+ Years Completed 06/25/2022 Zoster Vaccines Completed 10/19/2022, 05/25/2022 Influenza Vaccine Completed 05/08/2024, , 06/25/2022, Additional history exists Hepatitis B Vaccines Aged Out No long er eligible based on patient's age to complete this topic Procedures * Due to [place] state law, this organization might not be [...] Last 3 Months Results * Due to [place] state law, this organization might not be sharing negative HIV tests. * (ABNORMAL) POCT Glucose, interfaced (10/24/2024 11:22 AM EDT) Only the most recent of14 resultswithin the time period is included. [facility] Signature Glucose, POCT 225(H) 70 - 99 mg/dL 10/24/2024 11:23 AM EDT [facility] Comment: The floorworker lasting has not determined the efficacy of this test in Critically ill patients. ??[facility] defines Critically ill patients for the [...] POCT ORDERABLES - D EVICE Final Result [facility] [address] [place] [address], * Continuous EEG Monitoring (10/23/2024 10:21 AM [...] AM J Clin Neurophysiol. 2020;38(1):1-29 Clin Neurophysiol. 2016;128(11):5007-8999 CONTINUOUS VIDEO-EEG CUMULATIVE SUMMARY TO DATE: Medications: [...] ORDERABLES Fi nal Result [facility] * Lactic Acid, Plasma (10/23/2024 7:08 AM EDT) Only the most recent of2 resultswithin the time period is included. Lactic Acid 1.3 0.5 - 1.9 mmol/L 10/23/2024 8:26 AM EDT [facility] Comment: Sepsis Screening: Initial Lactate Level >2.0 mmol/L - Repeat Lactate Level within 3 hours. Initial Lactate Level >4.0 mmol/L - Repeat Lactate Level within 3 hours, Initiate Septic Shock Protocol. Blood Structure of peripheral vein / Unknown Venipuncture / Unknown 10/23/2024 7:08 AM EDT 10/23/2024 7:52 AM EDT us Eva Delgado MD LAB BLOOD ORDERABLES Fi nal Result [facility] [address] [place] [address], [place] * (ABNORMAL) POCT I-STAT Venous Blood Gas, interfaced (10/23/2024 4:19 AM EDT) Only the most recent of2 resultswithin the time period is included. Sample Type, POCT Venous 10/23/2024 5:17 AM EDT [facility] pH, POCT 7.34 7.31 - 7.41 pH 10/23/2024 5:17 AM EDT [facility] pCO2, POCT 35.5(L) 41 - 51 mm Hg 10/23/2024 5:17 AM EDT [facility] pO2, POCT 64(H) 35 - 40 mm Hg 10/23/2024 5:17 AM EDT [facility] Base Excess, POCT -6(L) 0 - 3 mmol/L 10/23/2024 5:17 AM EDT [facility] HCO3, POCT 19.3(L) 23 - 28 mmol/L 10/23/2024 5:17 AM EDT [facility] TCO2, POCT 20(L) 24 - 29 mmol/L 10/23/2024 5:17 AM EDT [facility] Saturated O2, POCT 91(H) 70 - 75 % 10/23/2024 5:17 AM EDT [facility] Manjit's Test, POCT N/A 10/23/2024 5:17 AM EDT [facility] Blood 10/23/2024 4:19 AM EDT 10/23/2024 5:17 AM EDT us Eva Delgado MD LAB POCT ORDERABLES - D EVICE Final Result [facility] [address] [place] [address], [place] * (ABNORMAL) CBC Auto Differential (10/23/2024 4:14 AM EDT) Only the most recent of2 resultswithin the time period is included. WBC 10.2 3.8 - 10.8 10*3/uL 10/23/2024 4:40 AM EDT [facility] RBC 5.36 4.20 - 5.80 10*6/uL 10/23/2024 4:40 AM EDT [facility] Hemoglobin 15.3 13.2 - 17.1 g/dL 10/23/2024 4:40 AM EDT [facility] Hematocrit 46.2 38.5 - 50.0 % 10/23/2024 4:40 AM EDT [facility] MCV 86.2 80.0 - 100.0 fL 10/23/2024 4:40 AM EDT [facility] MCH 28.5 27.0 - 33.0 pg 10/23/2024 4:40 AM EDT [facility] MCHC 33.1 32.0 - 36.0 g/dL 10/23/2024 4:40 AM EDT [facility] RDW 13.1 11.0 - 15.0 % 10/23/2024 4:40 AM EDT [facility] Platelets 190 140 - 400 10*3/uL 10/23/2024 4:40 AM EDT [facility] MPV 10.5 7.5 - 12.5 fL 10/23/2024 4:40 AM EDT [facility] Neutrophil % 82.9 % 10/23/2024 4:40 AM EDT [facility] Immature Grans % 0.3 0.0 - 0.9 % 10/23/2024 4:40 AM EDT [facility] Lymphocyte % 9.6 % 10/23/2024 4:40 AM EDT [facility] Monocyte % 5.9 % 10/23/2024 4:40 AM EDT [facility] Eosinophil % 0.9 % 10/23/2024 4:40 AM EDT [facility] Basophil % 0.4 % 10/23/2024 4:40 AM EDT [facility] Neutrophil # 8.50(H) 1.50 - 7.80 10*3/uL 10/23/2024 4:40 AM EDT [facility] Immature Grans # 0.03 <=0.03 10*3/uL 10/23/2024 4:40 AM EDT [facility] Lymphocyte # 1.00 0.85 - 3.90 10*3/uL 10/23/2024 4:40 AM EDT [facility] Monocyte # 0.60 0.20 - 0.95 10*3/uL 10/23/2024 4:40 AM EDT [facility] Eosinophil # 0.10 0.02 - 0.50 10*3/uL 10/23/2024 4:40 AM EDT [facility] Basophil # <0.03 0.00 - 0.20 10*3/uL 10/23/2024 4:40 AM EDT [facility] nRBC % 0.0 /100 WBCs 10/23/2024 4:40 AM EDT [facility] nRBC # <0.01 <0.01 10*3/uL 10/23/2024 4:40 AM EDT [facility] Blood Structure of peripheral vein / Unknown Venipuncture / Unknown 10/23/2024 4:14 AM EDT 10/23/2024 4:32 AM EDT us Eva Delgado MD LAB BLOOD ORDERABLES Fi nal Result [facility] [address] [place] [address], [place] * (ABNORMAL) Basic metabolic panel (10/23/2024 4:14 AM EDT) Only the most recent of2 resultswithin the time period is included. NA 135 135 - 145 mmol/L 10/23/2024 5:02 AM EDT [facility] K 4.2 3.5 - 5.3 mmol/L 10/23/2024 5:02 AM EDT [facility] Cl 98 98 - 107 mmol/L 10/23/2024 5:02 AM EDT [facility] CO2 18(L) 22 - 32 mmol/L 10/23/2024 5:02 AM EDT [facility] BUN 21 7 - 23 mg/dL 10/23/2024 5:02 AM EDT [facility] Creatinine 1.27 0.60 - 1.30 mg/dL 10/23/2024 5:02 AM EDT [facility] Glucose 360(H) 65 - 99 mg/dL 10/23/2024 5:02 AM EDT [facility] Calcium 9.7 8.6 - 10.5 mg/dL 10/23/2024 5:02 AM EDT [facility] Anion Gap 19(H) 5 - 15 10/23/2024 5:02 AM EDT [facility] eGFR 63 >=60 mL/min/1. 73m2 10/23/2024 5:02 AM EDT [facility] Comment:The estimated glomer ular filtration rate (eGFR) is calculated using a new formula developed by the NKF-ASN task force to eliminate race-based correction factors. The new formula uses serum/plasma creatinine, age, and gender to determine eGFR. A value below 60mls/min might indicate kidney disease and will be flagged. For additional information, see Jabier et al, Am J Kidney Dis. 2021;79(2):268- 288, A Unifying Approach for GFR estimation: Recommendations of the NKF-ASN Task Force on Reassessing the Inclusion of Race in Diagnosing Kidney Disease . Blood Structure of peripheral vein / Unknown Venipuncture / Unknown 10/23/2024 4:14 AM EDT 10/23/2024 4:31 AM EDT us Eva Delgado MD LAB BLOOD ORDERABLES Fi nal Result [facility] [address] [place] [address], * Continuous EEG Monitoring (10/22/2024 10:25 AM [...] system (21 electrodes), single channel ECG, [facility] Medications include: Scheduled Meds:allopurinoL, 300 mg, [...] J Clin Neurophysiol. 2020;38(1):1-29 Clin Neurophysiol. 2017 Jun;128(11):7548-8515 CONTINUOUS VIDEO-EEG CUMULATIVE SUMMARY TO DATE: Medications: [...] J Clin Neurophysiol. 2020;38(1):1-29 Clin Neurophysiol. 2017 Jun;128(11):5402-6543 CONTINUOUS VIDEO-EEG CUMULATIVE SUMMARY TO DATE: Medications: [...] Delgado MD NEUROLOGY ORDERABLES Fi nal Result [facility] * EMU EEG (10/20/2024 8:36 PM EDT) Narrative [facility] - 10/24/2024 9:12 AM EDT David Wilson MD ? 10/24/2024 ??9:41 AM [facility] CONTINUOUS VIDEO-EEG REPORT Patient: Cristopher Guzman [...] video and single channel EKG recording on [employer] [facility] equipment Activation procedures: none EEG Background: Symmetry: [...] and Other Clinical Events: none Single Channel Shampoo Technician: Rhythm: regular Rate (typical): 70-90 bpm Other: [...] events David Wilson MD, MPH Epileptologist Reference: [place] Clinical Neurophysiology Society's Standardized Critical Care EEG [...] to daily interpretations for further details) ?? us Eva Delgado MD NEUROLOGY ORDERABLES Fi nal Result [facility] * (ABNORMAL) Iron Saturation (10/20/2024 7:59 PM EDT) Iron Saturation 17(L) 20 - 50 % 4:09 AM EDT [facility] Iron 71 45 - 160 ug/dL 10/21/2024 4:09 AM EDT [facility] Transferrin 325 200 - 360 mg/dL 10/21/2024 4:09 AM EDT [facility] Total Iron Binding Capacity 406 255 - 450 ug/dL 10/21/2024 4:09 AM EDT [facility] Blood Structure of peripheral vein / Unknown Venipuncture / Unknown 10/20/2024 7:59 PM EDT 10/20/2024 8:04 PM EDT Eva Delgado MD LAB BLOOD ORDERABLES Fi nal Result [facility] [address] [place] [address], [place] * Ferritin (10/20/2024 7:59 PM EDT) Ferritin 24.2 23.0 - 336.0 ng/mL 10/21/2024 4:09 AM EDT [facility] Blood Structure of peripheral vein / Unknown Venipuncture / Unknown 10/20/2024 7:59 PM EDT 10/20/2024 8:04 PM EDT Eva Delgado MD LAB BLOOD ORDERABLES Fi nal Result [facility] [address] [place] [address], [place] * Hepatic Function Panel (10/20/2024 7:59 PM EDT) Total Protein 7.5 6.0 - 8.0 g/dL 10/20/2024 8:37 PM EDT [facility] Albumin 4.5 3.5 - 5.2 g/dL 10/20/2024 8:37 PM EDT [facility] Globulin, Total 3.0 2.1 - 4.2 g/dL 10/20/2024 8:37 PM EDT [facility] Bilirubin, Total 0.5 0.2 - 1.2 mg/dL 10/20/2024 8:37 PM EDT [facility] Bilirubin, Direct 0.2 <=0.4 mg/dL 10/20/2024 8:37 PM EDT [facility] Alkaline Phosphatase 93 35 - 129 U/L 10/20/2024 8:37 PM EDT [facility] AST 22 10 - 40 U/L 10/20/2024 8:37 PM EDT [facility] ALT 17 10 - 40 U/L 10/20/2024 8:37 PM EDT [facility] Bilirubin, Indirect 0.30 <=0.70 mg/dL 10/20/2024 8:37 PM EDT [facility] A/G Ratio 1.5 1.5 - 3.0 10/20/2024 8:37 PM EDT [facility] Blood Structure of peripheral vein / Unknown Venipuncture / Unknown 10/20/2024 7:59 PM EDT 10/20/2024 8:04 PM EDT us Eva Delgado MD LAB BLOOD ORDERABLES Fi nal Result [facility] [address] [place] [address], from Last 3 Months Insurance [employer] [facility] Advance Directives * Presumed Full Code (Latest Code Status on File) Date Activated Date Inactivated Comments 10/20/2024 7:44 PM 10/24/2024 7:07 PM Care Teams Engine Cowling Installer Relationship Specialty Start Date End Date Lu Goel MD [address] [place] [address] PCP - General Family Medicine 09/19/20
--- OUTSIDE RECORDS SUMMARY | 2024-11-26 14:41 | XMS_ITS | Patient Health Record ---
Author Organization [facility] Address [address] [place] [address] Care Team Providers Care Supervisor Framing Mill Name Role Phone Lu Goel M.D. Primary Care Provider Un available Naif Phipps Unavailable [phone] Allergies No Known Allergies Reason For Referral No Information Medications Medication SIG (Take, Route, Frequency, Duration) Notes [...] 1 tablet Orally Once a day Active Immunizations Vaccine Route Administration Date Status Comme nts Influenza Unknown 06/10/2023 Refused Social History Tobacco Use: Social History Observation Description Date Details (start date - stop date) Never Smoker NA - NA Tobacco Use/Smoking Question Answer Notes Patient is [...] Never (0 point) Points 1 Interpretation Negative Section Notes: Nonsmoker; no sig alcohol Nonsmoker; no sig alcohol Problems Problem Type SNOMED Code ICD Code Onset Dates Problem Status W/U Status Risk Notes Problem 727378966 Encounter for screening for malignant neoplasm of colon (Z12.11) Active confirmed Problem 129995061 History of adenomatous polyp of colon (Z86.010) Active confirmed Problem History of polyp of colon (situation) (397726655) Personal history of colonic polyps (Z86.010) Active confirmed Problem Diverticular disease of colon (920481932) Diverticulosis of large intestine without perforation or abscess without bleeding (K57.30) Active confirmed Problem 170716025162789 Pre-procedural examination (Z01.818) Active confirmed Problem 49792912 Diarrhea, unspecified type (R19.7) Active confirmed Plan Of Treatment Pending Test Test Name Order Date CELIAC PANEL #10 06/10/2023 Future Test Test Name Order Date COLONOSCOPY 02/02/2018 COLONOSCOPY 06/10/2023 Insurance Providers Payer Name Payer Address Payer Phone Subscriber Number Group Number Insured Name Patient Relationship to Insured Coverage Start Date Coverage End Date [facility] [address] [place], [place] [phone] [id number] COLTON OHARA Self - patient is the insured Medical (General) History Medical History History ICD Code NIDDM Hypertension Hyperlipidemia GERD--EGD in 2005 with a HH--no esophagi tis nor Vincent's esophagus Colonoscopy in 2005 was nega tive except for internal hemorrhoids and mild diverticulosis Gout Denies [place],CVA,Lung disease,renal disease Kidney stones Afib--sees Dr. Isaac-had a negative ca rdiac cath in 2022 Colonoscopy 03/2018 with 2 tubular adenom as removed Surgical History Surgery Date(Month/Year) Right inguinal hernia Knee surgery Hospitalization History Reason Date(Month/Year)
--- OUTSIDE RECORDS SUMMARY | 2024-11-26 14:41 | XMS_ITS | Encounter Summary ---
Author Organization [facility] Address [address] [place] [address] Care Team Providers Care Bellman Name Role Phone Lu Goel MD Primary Care Provider [phone] Encounter Details Date Type Department Care Team (Late st Contact Info) Description 07/25/2024 Repairogenhart Message [facility] Financial Clearance Department [address] [place] [id number] Reflect Systemshart, Generic Provider [address] [place], [place] [id number] No Auth required Social History Tobacco Use Types Packs/Day Years Used Date Smoking Tobacco: Never Smokeless Tobacco: Never Alcohol Use Standard Drinks/Week Comments Yes 2 (1 standard drink = 0.6 oz pur e alcohol) Sex and Gender Information Value Date Recorded Sex Assigned at Male 06/05/2020 7:49 AM EDT Legal Sex Male 7:49 AM EDT Gender Identity Male 06/05/2020 7:49 AM EDT Sexual Orientation Straight 12/12/2020 8: 05 PM EDT documented as of this encounter Plan of Treatment Upcoming Encounters Date Type Department Care Team (Late st Contact Info) Description 02/15/2025 3:00 PM EDT Office Visit [facility] [address] [place] [address] Randi Wynne MD [address] [place] [address] documented as of this encounter Visit Diagnoses Not on filedocumented in this encounter Care Teams Bellman Relationship Specialty Start Date End Date Lu Goel MD [address] [address] PCP - General Family Medicine 09/19/20 documented as of this encounter
--- OUTSIDE RECORDS SUMMARY | 2024-11-26 14:41 | XMS_ITS ---
Author Organization [facility] Address [address] [place] [address] Care Team Providers Care Sales Promotion Representative Name Role Phone Lu Goel M.D. Primary Care Provider Un available Naif Phipps Unavailable [phone] REASON FOR VISIT Januvia Encounters Encounter Location Date Provider Diagnosis [facility] [address] [place] [address] 08/16/2023 Naif Phipps Plan Of Treatment No Information Progress Notes * COLTON GUZMAN PDOB:[birth year] (63 yo M)Acc No.[id number]:08/16/2023 Patient:?COLTON GUZMAN :1960???Age:63 Y???Sex:Male Address:[place] [address] * true * Date:? Generated for Lizethi laly/Diane/eTransmitting on:?11/26/2024 02:40 PM EDT
--- OUTSIDE RECORDS SUMMARY | 2024-11-26 14:41 | XMS_ITS | Encounter Summary ---
Author Organization [facility] Address [address] [place] [address] Care Team Providers Care Wood Last Maker Name Role Phone Lu Goel MD Primary Care Provider [phone] Reason for Visit * Reason Onset Date Comments Appointment 05/09/2021 Encounter Details Date Type Department Care Team (Late st Contact Info) Description 05/09/2021 Telephone [facility] [address] [place] [address] Telephone Intake, Staff Appointment Social History Tobacco Use Types Packs/Day Years [...] PM EDT documented as of this encounter Miscellaneous Notes * Telephone Encounter - Stacie Sukumar Bueno - 05/09/2021 2:58 PM EDT Left message to return our call to schedule * Telephone Encounter - Stacie L Ximena - 05/09/2021 2:58 PM EDT ----- Message from Helen Cruz sent at 05/02/2021 12:44 PM EDT ----- Left voicemail for patient to return call back ----- Message ----- From: Randi Wynne MD Sent: 04/29/2021 11:23 PM EDT To: [facility] Neurology Admin Staff Please reach out to patient and schedule 6 month televideo follow-up appointment Wed or Fri 30 min.Please check with patient whether he was able to get his MRI Brain scheduled and performed. If he has undergone it, then please obtain a copy of the results faxed to our office and have the images loaded onto disc and mailed to our clinic. Thank you! documented in this encounter Plan of Treatment Upcoming Encounters Date Type Department Care Team (Late st Contact Info) Description 02/15/2025 3:00 PM EDT Office Visit [facility] [address] [place] [address] Randi Wynne MD [address] [place] [address] documented as of this encounter Visit Diagnoses Not on filedocumented in this encounter Care Teams Wood Last Maker Relationship Specialty Start Date End Date Lu Goel MD [address] [place] [address] PCP - General Family Medicine 09/19/20 documented as of this encounter
--- OUTSIDE RECORDS SUMMARY | 2024-11-26 14:41 | XMS_ITS | Encounter Summary ---
Author Organization [facility] Address [address] [place] [address] Care Team Providers Care Yarn Finisher Name Role Phone Lu Goel MD Primary Care Provider [phone] Encounter Details Date Type Department Care Team (Late st Contact Info) Description 11/17/2024 Diligent Board Member Servicest Message [facility] [address] [place] [address] Cheri Wu RN Neurology Social History Tobacco Use Types Packs/Day Years Used Date Smoking Tobacco: Never Smokeless Tobacco: Never Alcohol Use Standard Drinks/Week Comments Yes 2 (1 standard drink = 0.6 oz pur e alcohol) [facility] Utilities Answer Date Recorded In the [...] Description 02/15/2025 3:00 PM EDT Office Visit [facility] [address] [place], [place] [id number] Randi Wynne MD [address] [place] [address] documented as of this encounter Visit Diagnoses Not on filedocumented in this encounter Care Teams Yarn Finisher Relationship Specialty Start Date End Date Lu Goel MD [address] [place] [address] PCP - General Family Medicine 09/19/20 documented as of this encounter
[2024-11-26 16:21] LABS: Influenza A PCR NEGATIVE (Negative); Influenza B PCR NEGATIVE (Negative); Resp Syncy Virus RNA Qual PCR NEGATIVE (Negative); SARS COV2 PCR INHOUSE NEGATIVE (Negative)
== END 2024-11-26 12:01 | disposition home or self-care (01) ==
LOC: HO.LNP 12:00
PROVIDERS: PCP Family Medicine; Visit Provider Physician Assistant Medical
DX: J20.9 Acute bronchitis, unspecified (principal); R09.89 Other specified symptoms and signs involving the circulatory and respiratory systems
CPT/HCPCS: 0241U

== ENCOUNTER 2024-12-14 08:40 | Outpatient (AMB) | payer OTHER, SELFPAY ==
--- NOTE | 2024-12-14 08:53 | A.OFFVIS_ITS ---
Vital Signs 12/14/24 08:56 Height 5 ft 11 in Weight 242 lb 8.136 oz BMI 33.8 BP 110/60 Blood Pressure Location Lt brachial Position Sitting Pulse 73 Pulse Source Monitor Intake Visit Reasons: 4m follow up Intake Note: 4 mth f/up Distributed Generation Project Manager Required: No Accompanied by: Self / Same As Patient Allergies No Known Allergies [No Known Allergies*] Allergy (Verified 05/24/24 17:03) Medication List - Last Reconciled 12/14/24 by Baltazar Isaac MD albuterol sulfate 90 mcg/actuation 1 inh inhalation QID PRN allopurinol 300 mg PO DAILY amoxicillin-pot clavulanate 875-125 mg 1 tab PO BID apixaban (Eliquis) 5 mg PO BID atorvastatin 80 mg PO DAILY benzonatate 200 mg PO BID-TID PRN clopidogrel 75 mg PO DAILY cyclobenzaprine 10 mg PO TID dronedarone (Multaq) 400 mg PO BID insulin glargine 22 units subcut QAM levetiracetam 750 mg PO BID losartan 50 mg PO BEDTIME magnesium oxide 400 mg PO BID melatonin 10 mg PO BEDTIME metformin 1,000 mg PO BID metoprolol succinate ER 50 mg PO DAILY oxcarbazepine mg PO pantoprazole 40 mg PO DAILY@0630 prednisone 40 mg (2 x 20 mg) PO DAILY 5 days semaglutide (Ozempic) 1 mg subcut QWEEK HPI Comments Details: 64-year-old gentleman here for follow-up. He has background of paroxysmal atrial fibrillation. He was started on flecainide for pill in the pocket approach but previously did not require flecainide. He had asymptomatic episodes of atrial fibrillation in the past. Recently went to the [facility] with chest discomfort which he described like a pressure-like feeling on his chest along with shortness of breath. He was noticed to be in AFib with RVR. It appears he was given beta-blockers for rate control and eventually just converted back to sinus rhythm. He said his symptoms improved after AFib broke. He has been on flecainide since this start at 50 mg twice a day. He is also on Toprol XL 50 mg daily. He has been taking his Eliquis regularly. Subsequent to that he was referred for exercise stress test. On treadmill he did not develop reproducible chest discomfort or significant dyspnea. His EKG also did not have any significant changes although he had baseline T-wave changes in inferior leads which effected interpretation to some extent. He is back for follow-up and he has started his work and feels reasonably well. 03/23/2023: He returns for follow-up. He has been changed to Multaq after diagnosis of coronary disease. He is saying since he started taking Multaq he is feeling more tired at times. He also feels is not refreshed in the morning and uses CPAP regularly. He had sleep study few years ago. 08/24/23: He returns for follow-up. He is undergoing colonoscopy on Thursday. He is going to hold apixaban for 3 days. He is taking Multaq and has not had any further palpitations. Blood pressure initially was elevated but repeat blood pressure is 130/60. Taking medications regularly otherwise. Overall clinically stable. 04/27/2024: He is here for follow-up. In 12/28/2023 he presented with seizure and chest pain. He ruled in for NSTEMI. He was taken urgently for cardiac catheterization which showed plaque rupture with thrombus in the RCA which was treated with drug-eluting stent. He has done well since then. He is saying that he has been getting frequent seizures and he had seizures in December and February. He has been given a nasal spray by the neurologist which his family gives to him during seizure which breaks it quickly. His Keppra dose has been increased and he is due to get EEG done. 08/15/2024: He returns for follow-up. He had seizures in April but since then he has been stable. He is seeing Dr. Wynne at [facility] and we will be getting further testing including EEG. In sinus rhythm on EKG. Denying any palpitations, chest discomfort shortness of breath. He has been active at work and is working full-time at this point. 12/14/2024: He is here for follow-up. He had bad episode of bronchitis and while coughing he had damages eardrums and has been getting hearing problems. He has no chest discomfort shortness of breath. He underwent workup at [facility] for seizures and is supposed to start new seizure medication which he is not getting due to recent bronchitis episode and antibiotic use. He is saying he is getting off the Januvia and will be starting Ozempic. PFSH Medical History Seizures Elevated cholesterol Renal calculi Gout ACS (acute coronary syndrome) PAF (paroxysmal atrial fibrillation) HTN (hypertension) Diabetes mellitus Obstructive sleep apnea Surgical History Hx of cardiac catheterization History of right knee surgery Hx of colonoscopy Hx of hernia repair Family History Father CVD (cardiovascular disease) Stroke Arteriosclerosis of bypass graft of coronary artery Diabetes CHF (congestive heart failure) Mother No problems noted. Social History Household Members: Spouse Housing: House Do you presently have visiting nurse or other home services: No Alcohol intake: current Alcohol intake frequency: holidays/special occasions only Patient Tobacco Use Status: Never used Tobacco service: Yes Current occupational status: employed Review of Systems Const Denies chills, Denies fatigue, Denies fever(s), Denies frequent falls, Denies weakness, Denies weight gain and Denies weight loss ENT Denies dizziness Card Denies chest pain, Denies leg edema, Denies lightheadedness, Denies palpitations, Denies dyspnea and Denies dyspnea on exertion Resp Denies cough, Denies dyspnea and Denies dyspnea on exertion GI Denies hematochezia Musc Denies abnormal gait, Denies muscle weakness, Denies numbness, Denies radiating pain into limb and Denies tingling Neuro Denies abnormal gait, Denies dizziness, Denies frequent falls, Denies numbness, Denies tingling and Denies weakness Endo Denies fatigue and Denies palpitations Physical Exam Vital Signs: Last Vital Signs Pulse 73 12/14/24 08:56 BP 110/60 12/14/24 08:56 BMI result Body Mass Index 33.8 GENERAL APPEARANCE: in no acute distress, pleasant. NECK: no carotid bruit, no jugular venous distention. SKIN: no suspicious lesions, warm and dry. HEART: no murmurs, regular rate and rhythm. LUNGS: clear to auscultation bilaterally. ABDOMEN: soft, nontender. EXTREMITIES: no edema. PERIPHERAL PULSES: equal. NEUROLOGIC: No gross deficits, AAO X 3 Office Procedures EKG Details: Sinus rhythm 73 beats per minute, normal axis, inferior infarct, QTC 425 milliseconds. 01764-[id number], Complete Assessment & Plan Assessment & Plan (1) Stented coronary artery: Code(s): Z95.5 - Presence of coronary angioplasty implant and graft Category: Surgical (2) PAF (paroxysmal atrial fibrillation): Code(s): I48.0 - Paroxysmal atrial fibrillation Category: Medical (3) Stable angina: Code(s): I20.8 - Other forms of angina pectoris Category: Medical Plan Pleasant 64 year gentleman who is here for follow-up. He was seen in December 2023 for chest pain and NSTEMI and underwent cardiac catheterization and PCI to RCA. He is currently on apixaban and Plavix. He is on atorvastatin 80 mg daily. He is denying any chest discomfort shortness of breath. Clinically stable from atrial fibrillation and coronary disease point of view. EKGs showing sinus rhythm at this point. Continue Multaq and Eliquis. He has been getting hearing problems because he damaged his eardrums while violently coughing during a bronchitis episode. He needs to see ENT and we will be discussing this with his primary care doctor. Follow up with us in 4 months. Thank you for allowing me to participate in the care of your patient. Please feel free to contact me if you have any questions. Coding Level of Care Code Est Pt Level 4 (16398) Diagnoses Stented coronary artery Z95.5 PAF (paroxysmal atrial fibrillation) I48.0 Stable angina I20.8 CPT Codes EKG - CPT: 01117-Gnhkpskquiamxvwwk, Complete ([id number])
[2024-12-14 08:56] VITALS: BP 110/60; PULSE 73; BMI 33.8
--- OUTSIDE RECORDS SUMMARY | 2024-12-14 08:59 | XMS_ITS | Patient Health Record ---
Author Organization [facility] Address [address] [place] [address] Care Team Providers Care Medical Facilities Section Director Name Role Phone Lu Goel M.D. Primary Care Provider Un available Naif Phipps Unavailable [phone] Allergies No Known Allergies Reason For Referral No Information Medications Medication SIG (Take, Route, Frequency, Duration) Notes Start Date End Date Status Multaq 400 MG TAKE 1 TABLET BY ERIN TH TWICE A DAY Oral for 90 Active levETIRAcetam 500 MG TAKE 2 TABLETS BY M OUTH TWICE A DAY Oral for 90 Active Eliquis 5 MG TAKE 1 TABLET BY ERIN TH TWICE A DAY Oral for 90 Active Melatonin 10 MG as directed Orally O nce a day Active Pantoprazole Sodium 40 MG TAKE 1 TABLET BY MOUTH EVERY DAY for 90 Active Magnesium Active Metoprolol Succinate ER 25 [...] Problem Status W/U Status Risk Notes Problem [id number] Encounter for screening for malignant neoplasm of colon (Z12.11) Active confirmed Problem 558250464 History of adenomatous polyp of colon (Z86.010) Active confirmed Problem History of polyp of colon (situation) (488107617) Personal history of colonic polyps (Z86.010) Active confirmed Problem Diverticular disease of colon (879301104) Diverticulosis of large intestine without perforation or abscess without bleeding (K57.30) Active confirmed Problem 778120732047404 Pre-procedural examination (Z01.818) Active confirmed Problem 70610457 Diarrhea, unspecified type (R19.7) Active confirmed Plan Of Treatment Pending Test Test Name Order Date CELIAC PANEL #10 06/10/2023 Future Test Test Name Order Date COLONOSCOPY 02/02/2018 COLONOSCOPY 06/10/2023 Insurance Providers Payer Name Payer Address Payer Phone Subscriber Number Group Number Insured Name Patient Relationship to Insured Coverage Start Date Coverage End Date [facility] [address] [place], [place] [phone] [id number] COLTON OHARA Self - patient is the insured Medical (General) History Medical History History ICD Code NIDDM Hypertension Hyperlipidemia GERD--EGD in 2005 with a HH--no esophagi tis nor Vincent's esophagus Colonoscopy in 2005 was nega tive except for internal hemorrhoids and mild diverticulosis Gout Denies RI,CVA,Lung disease,renal disease Kidney stones Afib--sees Dr. Isaac-had a negative ca rdiac cath in 2022 Colonoscopy 03/2018 with 2 tubular adenom as removed Surgical History Surgery Date(Month/Year) Right inguinal hernia Knee surgery Hospitalization History Reason Date(Month/Year)
--- OUTSIDE RECORDS SUMMARY | 2024-12-14 08:59 | XMS_ITS | Clinical Summary ---
Author Organization [facility] Address [address] [place] [address] Care Team Providers Care Numerical Control Operator Name Role Phone Unknown, Primary Care Provider [...] age to complete this topic Care Teams Numerical Control Operator Relationship Specialty Start Date End Date Unknown, PCP - General 11/01/21
--- OUTSIDE RECORDS SUMMARY | 2024-12-14 08:59 | XMS_ITS ---
Author Organization [facility] Address [address] [place] [address] Care Team Providers Care Nuclear Plant Equipment Operator Name Role Phone Lu Goel M.D. Primary Care Provider Un available Naif Phipps Unavailable [phone] REASON FOR VISIT medication change on dosing Medications Medication SIG (Take, Route, Fr equency, Duration) Notes Start Date End Date Status metFORMIN HCl 500 MG 1 tablet with a meal Orally bid Active Januvia 50 MG 1 tablet Orally at night Active Encounters Encounter Location Date Provider Diagnosis [facility] [address] [place] [address] 08/21/2023 Naif Phipps Plan Of Treatment Medication Medication Name Sig Start Date Stop Date Notes metFORMIN HCl 500 MG 1 tablet with a meal Orally bid Januvia 50 MG 1 tablet Orally at night Progress Notes * COLTON GUZMAN PDOB:[birth year] (63 yo M)Acc No.[id number]:08/21/2023 Patient:?COLTON GUZMAN :1960???Age:63 Y???Sex:Male Address:[place] [address] * Refills? Continue metFORMIN HCl Tablet, 500 MG, Orally, 1 tablet with a meal, bid Continue Januvia Tablet, 50 MG, Orally, 1 tablet, at night * true * Date:? Generated for Printi ng/Faharmonyg/eTransmitting on:?12/14/2024 08:59 AM EDT
--- OUTSIDE RECORDS SUMMARY | 2024-12-14 08:59 | XMS_ITS | Encounter Summary ---
Author Organization [facility] Address [address] [place] [address] Care Team Providers Care Financial Analyst Intern Name Role Phone Lu Goel MD Primary Care Provider [phone] [phone] Encounter Details Date Type Department Care Team (Late st Contact Info) Description 11/17/2024 SocialVestt Message [facility] [address] [place] [address] Cheri Wu RN Neurology Social History Tobacco Use Types Packs/Day Years Used Date Smoking Tobacco: Never Smokeless Tobacco: Never Alcohol Use Standard Drinks/Week Comments Yes 2 (1 standard drink = 0.6 oz pur e alcohol) [facility] Utilities Answer Date Recorded In the past [...] Description 02/15/2025 3:00 PM EDT Office Visit [facility] [address] [place], [place] [phone] Randi Wynne MD [address] [place] [address] documented as of this encounter Visit Diagnoses Not on filedocumented in this encounter Care Teams Financial Analyst Intern Relationship Specialty Start Date End Date Lu Goel MD [address] [place] [address] PCP - General Family Medicine 09/19/20 documented as of this encounter
--- OUTSIDE RECORDS SUMMARY | 2024-12-14 08:59 | XMS_ITS | Clinical Summary ---
Author Organization [facility] Address [address] [place] [address] Care Team Providers Care Day Trader Name Role Phone Lu Goel MD Primary Care Provider [phone] Allergies No known active allergies Medications allopurinoL [...] from the original. PCP Lu Goel fax [phone] IS Ticket has been placed. Provider not listed in epic dictionary. Provider npi [phone] Problem Noted Date Diagnosed Date Epilepsy 10/24/2024 [...] has not noted to have any. WORK-UP: [facility] (Dr. 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 - increase from Keppra 1000mg BID to Keppra 1000mg in am, 1500mg in pm - ordered rescue medication Nayzilam 5mg daily PRN seizure >5min or >1 seizure in 24 hours - fax routine EEG report from [facility] to our clinic for our files [...] arrangements for him to undergo this at [facility] - to ensure sufficient coverage with [...] Department Care Team Description 11/17/2024 myChart Message [facility] [address] [place] [phone] Cheri Wu, RN Neurology 11/17/2024 Telephone [facility] [address] [place] [phone] Cheri Wu, RN Follow-up 10/31/2024 Telephone [facility] [address] [place] [phone] Cheri Wu, RN Appointment 10/25/2024 Telephone [facility] [address] [place] [address] Cheri Wu, CHRISTY Follow-up; Appointment 10/20/2024 6:05 PM EDT - 10/24/2024 5:06 PM EDT Hospital Encounter [facility] [address] [place] [address] Eva Delgado MD Bomprezzi, Roberto, MD PhD Seizure (Primary Dx); Nocturnal seizures Discharge Disposition: Home or Self Care () 10/19/2024 myChart Message [facility] [address] [place] [phone] Jhon David Provider Halfway Video EEG Monitoring admission for 10/20/24 around 5-6 PM. 10/14/2024 Telephone [facility] [address] [place] [phone] Cheri Wu, CHRISTY questions about EMU 10/12/2024 9:30 AM EST Telehealth [facility] [address] [place] [phone] Randi Wynne MD Nocturnal seizures (Primary Dx); Obstructive sleep apnea 10/06/2024 External Contact [facility] [address] [place] [phone] David Wilson MD Nocturnal seizures 09/27/2024 Telephone [facility] [address] [place] [phone] Cheri Wu, CHRISTY Follow-up; Seizure 09/25/2024 myChart Message [facility] [address] [place] [phone] Randi Wynne MD Tevin episodes from Last 3 Months Family History Relation Name Status Comments Father Mother Alive Social History Tobacco Use Types Packs/Day Years Used Date Smoking Tobacco: Never Smokeless Tobacco: Never Alcohol Use Standard Drinks/Week Comments Yes 2 (1 standard drink = 0.6 oz pur e alcohol) [facility] Utilities Answer Date Recorded In the [...] Description 02/15/2025 3:00 PM EDT Office Visit [facility] [address] [place] [address] Randi Wynne MD [address] [place] [address] Health Maintenance Due Date Last Done Comments [...] complete this topic Procedures * Due to [place] state law, this organization might not be [...] Last 3 Months Results * Due to [place] state law, this organization might not be sharing negative HIV tests. * (ABNORMAL) POCT Glucose, interfaced (10/24/2024 11:22 AM EDT) Only the most recent of14 resultswithin the time period is included. [facility] Glucose, POCT 225(H) 70 - 99 mg/dL 10/24/2024 11:23 AM EDT [facility] Comment: The lead pressman has not determined the efficacy of this test in Critically ill patients. ??[facility] defines Critically ill patients for the [...] D EVICE Final Result Performing Organization Address City/State/[facility] Co de Phone Number [facility] [address] [place] [address], * Continuous EEG Monitoring (10/23/2024 10:21 AM [...] AM J Clin Neurophysiol. 2020;38(1):1-29 Clin Neurophysiol. 2016;128(52):8131-3836 CONTINUOUS VIDEO-EEG CUMULATIVE SUMMARY TO DATE: Medications: [...] Delgado MD NEUROLOGY ORDERABLES Fi nal Result [facility] * Lactic Acid, Plasma (10/23/2024 7:08 AM EDT) Only the most recent of2 resultswithin the time period is included. Lactic Acid 1.3 0.5 - 1.9 mmol/L 10/23/2024 8:26 AM EDT [facility] Comment: Sepsis Screening: Initial Lactate Level >2.0 mmol/L - Repeat Lactate Level within 3 hours. Initial Lactate Level >4.0 mmol/L - Repeat Lactate Level within 3 hours, Initiate Septic Shock Protocol. Blood Structure of peripheral vein / Unknown Venipuncture / Unknown 10/23/2024 7:08 AM EDT 10/23/2024 7:52 AM EDT us Eva Delgado MD LAB BLOOD ORDERABLES Fi nal Result [facility] [address] [place] [address], * (ABNORMAL) POCT I-STAT Venous Blood Gas, interfaced (10/23/2024 4:19 AM EDT) Only the most recent of2 resultswithin the time period is included. Sample Type, POCT Venous 10/23/2024 5:17 AM EDT [facility] pH, POCT 7.34 7.31 - 7.41 pH 10/23/2024 5:17 AM EDT [facility] pCO2, POCT 35.5(L) 41 - 51 mm Hg 10/23/2024 5:17 AM EDT [facility] pO2, POCT 64(H) 35 - 40 mm Hg 10/23/2024 5:17 AM EDT [facility] Base Excess, POCT -6(L) 0 - 3 mmol/L 10/23/2024 5:17 AM EDT [facility] HCO3, POCT 19.3(L) 23 - 28 mmol/L 10/23/2024 5:17 AM EDT [facility] TCO2, POCT 20(L) 24 - 29 mmol/L 10/23/2024 5:17 AM EDT [facility] Saturated O2, POCT 91(H) 70 - 75 % 10/23/2024 5:17 AM EDT [facility] Manjit's Test, POCT N/A 10/23/2024 5:17 AM EDT [facility] Blood 10/23/2024 4:19 AM EDT 10/23/2024 5:17 AM EDT us Eva Delgado MD LAB POCT ORDERABLES - D IONA Final Result [facility] [address] [place] [address], [place] * (ABNORMAL) CBC Auto Differential (10/23/2024 4:14 AM EDT) Only the most recent of2 resultswithin the time period is included. WBC 10.2 3.8 - 10.8 10*3/uL 10/23/2024 4:40 AM EDT [facility] RBC 5.36 4.20 - 5.80 10*6/uL 10/23/2024 4:40 AM EDT [facility] Hemoglobin 15.3 13.2 - 17.1 g/dL 10/23/2024 4:40 AM EDT [facility] Hematocrit 46.2 38.5 - 50.0 % 10/23/2024 4:40 AM EDT [facility] MCV 86.2 80.0 - 100.0 fL 10/23/2024 4:40 AM EDT [facility] MCH 28.5 27.0 - 33.0 pg 10/23/2024 4:40 AM EDT [facility] MCHC 33.1 32.0 - 36.0 g/dL 10/23/2024 4:40 AM EDT [facility] RDW 13.1 11.0 - 15.0 % 10/23/2024 4:40 AM EDT [facility] Platelets 190 140 - 400 10*3/uL 10/23/2024 4:40 AM EDT [facility] (Social Influence Quotient)[facility] MPV 10.5 7.5 - 12.5 fL 10/23/2024 4:40 AM EDT [facility] (Social Influence Quotient)[facility] Neutrophil % 82.9 % 10/23/2024 4:40 AM EDT [facility] (Social Influence Quotient[facility] Immature Grans % 0.3 0.0 - 0.9 % 10/23/2024 4:40 AM EDT [facility] (Social Influence Quotient)[facility] Lymphocyte % 9.6 % 10/23/2024 4:40 AM EDT [facility] (Social Influence Quotient)[facility] Monocyte % 5.9 % 10/23/2024 4:40 AM EDT [facility] (Social Influence Quotient)[facility] Eosinophil % 0.9 % 10/23/2024 4:40 AM EDT [facility] (Social Influence Quotient)[facility] Basophil % 0.4 % 10/23/2024 4:40 AM EDT [facility] (Social Influence Quotient)[facility] Neutrophil # 8.50(H) 1.50 - 7.80 10*3/uL 10/23/2024 4:40 AM EDT [facility] (Social Influence Quotient)[facility] Immature Grans # 0.03 <=0.03 10*3/uL 10/23/2024 4:40 AM EDT Social [facility] (Social Influence Quotient)[facility] Lymphocyte # 1.00 0.85 - 3.90 10*3/uL 10/23/2024 4:40 AM EDT Social [facility] (Social Influence Quotient)[facility] Monocyte # 0.60 0.20 - 0.95 10*3/uL 10/23/2024 4:40 AM EDT Social IQ (Social Influence Quotient)[facility] Eosinophil # 0.10 0.02 - 0.50 10*3/uL 10/23/2024 4:40 AM EDT Social IQ (Social Influence Quotient)[facility] Basophil # <0.03 0.00 - 0.20 10*3/uL 10/23/2024 4:40 AM EDT Social [facility] (Social Influence Quotient)[facility] nRBC % 0.0 /100 WBCs 10/23/2024 4:40 AM EDT [facility] nRBC # <0.01 <0.01 10*3/uL 10/23/2024 4:40 AM EDT [facility] [place] [facility] Blood Structure of peripheral vein / Unknown Venipuncture / Unknown 10/23/2024 4:14 AM EDT 10/23/2024 4:32 AM EDT us Eva Delgado MD LAB BLOOD ORDERABLES Fi nal Result [facility] [address] [place] [address], * (ABNORMAL) Basic metabolic panel (10/23/2024 4:14 AM EDT) Only the most recent of2 resultswithin the time period is included. NA 135 135 - 145 mmol/L 10/23/2024 5:02 AM EDT [facility] K 4.2 3.5 - 5.3 mmol/L 10/23/2024 5:02 AM EDT [facility] [place] [facility] Cl 98 98 - 107 mmol/L 10/23/2024 5:02 AM EDT [facility] [place] [facility] CO2 18(L) 22 - 32 mmol/L 10/23/2024 5:02 AM EDT [employer] [facility] [place] [facility] BUN 21 7 - 23 mg/dL 10/23/2024 5:02 AM EDT [facility] [place] [facility] Creatinine 1.27 0.60 - 1.30 mg/dL 10/23/2024 5:02 AM EDT [employer] [place] [facility] Glucose 360(H) 65 - 99 mg/dL 10/23/2024 5:02 AM EDT [facility] [place] [facility] Calcium 9.7 8.6 - 10.5 mg/dL 10/23/2024 5:02 AM EDT [employer] [facility] [place] [facility] Anion Gap 19(H) 5 - 15 10/23/2024 5:02 AM EDT [facility] eGFR 63 >=60 mL/min/1. 73m2 10/23/2024 5:02 AM EDT [facility] Comment:The estimated glomer ular [...] MD LAB BLOOD ORDERABLES Fi nal Result [facility] [address] [place], [place] [address], * Continuous EEG Monitoring (10/22/2024 10:25 AM [...] AM J Clin Neurophysiol. 2020;38(1):1-29 Clin Neurophysiol. 2016;128(11):8642-5952 CONTINUOUS VIDEO-EEG CUMULATIVE SUMMARY TO DATE: Medications: [...] J Clin Neurophysiol. 2020;38(1):1-29 Clin Neurophysiol. 2017 Jun;128(11):5765-3088 CONTINUOUS VIDEO-EEG CUMULATIVE SUMMARY TO DATE: Medications: [...] Delgado MD NEUROLOGY ORDERABLES Fi nal Result [facility] EEG * EMU EEG (10/20/2024 8:36 PM EDT) Narrative [facility] - 10/24/2024 9:12 AM EDT David Wilson MD ? 10/24/2024 ??9:41 AM [facility] CONTINUOUS VIDEO-EEG REPORT Patient: Cristopher Guzman : [...] video and single channel EKG recording on [employer] equipment Activation procedures: none EEG Background: Symmetry: [...] and Other Clinical Events: none Single Channel Flat Examiner: Rhythm: regular Rate (typical): 70-90 bpm Other: [...] events David Wilson MD, MPH Epileptologist Reference: [place] Clinical Neurophysiology Society's Standardized Critical Care EEG [...] 20 - 50 % 4:09 AM EDT [facility] Iron 71 45 - 160 ug/dL 10/21/2024 4:09 AM EDT [facility] Transferrin 325 200 - 360 mg/dL 10/21/2024 4:09 AM EDT [facility] Total Iron Binding Capacity 406 255 - 450 ug/dL 10/21/2024 4:09 AM EDT [facility] Blood Structure of peripheral vein / Unknown Venipuncture / Unknown 10/20/2024 7:59 PM EDT 10/20/2024 8:04 PM EDT Eva Delgado MD LAB BLOOD ORDERABLES Fi nal Result Performing Organization Address City/[facility]/ZIP Co de Phone Number [facility] [address] [place] [address], * Ferritin (10/20/2024 7:59 PM EDT) Ferritin 24.2 23.0 - 336.0 ng/mL 10/21/2024 4:09 AM EDT [facility] Blood Structure of peripheral vein / Unknown Venipuncture / Unknown 10/20/2024 7:59 PM EDT 10/20/2024 8:04 PM EDT Eva Delgado MD LAB BLOOD ORDERABLES Fi nal Result Performing Organization Address City/[facility] Co de Phone Number [facility] [address] [place] [phone], * Hepatic Function Panel (10/20/2024 7:59 PM EDT) Total Protein 7.5 6.0 - 8.0 g/dL 10/20/2024 8:37 PM EDT [facility] Albumin 4.5 3.5 - 5.2 g/dL 10/20/2024 8:37 PM EDT [facility] Globulin, Total 3.0 2.1 - 4.2 g/dL 10/20/2024 8:37 PM EDT [facility] Bilirubin, Total 0.5 0.2 - 1.2 mg/dL 10/20/2024 8:37 PM EDT [facility] Bilirubin, Direct 0.2 <=0.4 mg/dL 10/20/2024 8:37 PM EDT [facility] [place] [facility] Alkaline Phosphatase 93 35 - 129 U/L 10/20/2024 8:37 PM EDT [facility] [place] [facility] AST 22 10 - 40 U/L 10/20/2024 8:37 PM EDT [facility] [place] [facility] ALT 17 10 - 40 U/L 10/20/2024 8:37 PM EDT [facility] [place] [facility] Bilirubin, Indirect 0.30 <=0.70 mg/dL 10/20/2024 8:37 PM EDT [facility] [place] [facility] A/G Ratio 1.5 1.5 - 3.0 10/20/2024 8:37 PM EDT [facility] [place] [facility] Blood Structure of peripheral vein / Unknown Venipuncture / Unknown 10/20/2024 7:59 PM EDT 10/20/2024 8:04 PM EDT us Eva Delgado MD LAB BLOOD ORDERABLES Fi nal Result [facility] [address] [place] [address], from Last 3 Months Insurance [employer] [facility] Advance Directives * Presumed Full Code (Latest Code Status on File) Date Activated Date Inactivated Comments 10/20/2024 7:44 PM 10/24/2024 7:07 PM Care Teams Day Trader Relationship Specialty Start Date End Date Lu Goel MD [address] [place] [phone] PCP - General Family Medicine 09/19/20
--- OUTSIDE RECORDS SUMMARY | 2024-12-14 08:59 | XMS_ITS | Referral Summary ---
Author Organization [facility] Address [address] [place] [address] Care Team Providers Care Plating Machine Operator Name Role Phone Lu Goel MD Primary Care Provider [phone] [phone] Encounters Date Type Department Care Team Description 11/17/2024 USDS Message [facility] [address] [place] [address] [phone] Cheri Wu, CHRISTY Neurology 11/17/2024 Telephone [facility] [address] [place] [address] [phone] Cheri Wu, RN Follow-up 10/31/2024 Telephone [facility] [address] [place] [address] [phone] Cheri Wu, RN Appointment 10/25/2024 Telephone [facility] [address] [place] [address] [phone] Cheri Wu, RN Follow-up; Appointment 10/20/2024 6:05 PM EDT - 10/24/2024 5:06 PM EDT Hospital Encounter [facility] [address] [place] [address] [phone] Eva Delgado MD Bomprezzi, Roberto, MD PhD Seizure (Primary Dx); Nocturnal seizures Discharge Disposition: Home or Self Care (01) 10/19/2024 Tamrt Message [facility] [address] [place] [phone] Mychart, [place] Provider Apparel Patternmaker Video EEG Monitoring admission for 10/20/24 around 5-6 PM. 10/14/2024 Telephone [facility] [address] [place] [address] [phone] Cheri Wu, RN questions about EMU 10/12/2024 9:30 AM EST Telehealth [facility] [address] [place] [address] Randi Wynne MD Nocturnal seizures (Primary Dx); Obstructive sleep apnea 10/06/2024 External Contact [facility] [address] [place] [address] [phone] David Wilson MD Nocturnal seizures 09/27/2024 Telephone [facility] [address] [place] [address] [phone] Cheri Wu RN Follow-up; Seizure 09/25/2024 myChart Message [facility] [address] [place] [address] [phone] Randi Wynne MD Tevin episodes from Last 3 Months Allergies No known [...] from the original. PCP Lu Goel fax [phone] IS Ticket has been placed. Provider not listed in epic dictionary. Provider npi [phone] Problem Noted Date Diagnosed Date Epilepsy 10/24/2024 Seizure 10/20/2024 Nocturnal seizures 09/07/2020 Overview (12/22/2020): Briefly, 60RHM h/o nocturnal episodes for which he is amnestic which had been occurring with increasing frequency overnight up to 4 times for which he is amnestic in am. ONSET: 2018 TRIGGER: Sleep deprivation SEMIOLOGY: Single screams <1min, [...] has not noted to have any. WORK-UP: [facility] (Dr. Dale) ~9 days, 2 episodes [...] high school then , no stroke or DOMAIN ARCHITECT infection, no traumatic brain injury, re: FHx [...] - per patient request have referred to [facility] sleep clinic for further evaluation [...] event in December 2023 resulting in a NH. - increase from Keppra 1000mg BID to Keppra 1000mg in am, 1500mg in pm - ordered rescue medication Nayzilam 5mg daily PRN seizure >5min or >1 seizure in 24 hours - fax routine EEG report from [facility] to our clinic for our files - [...] arrangements for him to undergo this at [facility] - to ensure sufficient coverage with Keppra, [...] 0.6 oz pur e alcohol) [facility] Utilities Answer Date Recorded In [...] Description 02/15/2025 3:00 PM EDT Office Visit [facility] [address] [place] [address] Randi Wynne MD [address] [place] [address] Procedures * Due to [place] state law, this organization might not be [...] Last 3 Months Results * Due to [place] state law, this organization might not be sharing negative HIV tests. * (ABNORMAL) POCT Glucose, interfaced (10/24/2024 11:22 AM EDT) Only the most recent of14 resultswithin the time period is included. [facility] Glucose, POCT 225(H) 70 - 99 mg/dL 10/24/2024 11:23 AM EDT [facility] Comment: The senior sous chef has not determined the efficacy of this test in Critically ill patients. ??[facility] defines Critically ill patients for the [...] POCT ORDERABLES - D EVICE Final Result [facility] [address] [place] [address], * Continuous EEG Monitoring (10/23/2024 10:21 AM [...] system (21 electrodes), single channel ECG, [employer]ov[employer] equipment Medications include: Scheduled Meds:allopurinoL, 300 mg, [...] J Clin Neurophysiol. 2020;38(1):1-29 Clin Neurophysiol. 2017 Jun;128(53):3547-6533 CONTINUOUS VIDEO-EEG CUMULATIVE SUMMARY TO DATE: Medications: [...] particular findings. Eva Delgado MD NEUROLOGY ORDERABLES Fi nal Result Performing Organization Address City/[facility] Co de Phone Number [facility] * Lactic Acid, Plasma (10/23/2024 7:08 AM EDT) Only the most recent of2 resultswithin the time period is included. Lactic Acid 1.3 0.5 - 1.9 mmol/L 10/23/2024 8:26 AM EDT [email or web address] Comment: Sepsis Screening: Initial [...] ORDERABLES Fi nal Result Performing Organization Address City/[facility] Co de Phone Number [email or web address] [address] [place] [address], * (ABNORMAL) POCT I-STAT Venous Blood Gas, interfaced (10/23/2024 4:19 AM EDT) Only the most recent of2 resultswithin the time period is included. Pathologist [facility] Sample Type, POCT Venous 10/23/2024 5:17 AM EDT [facility] pH, POCT 7.34 7.31 - 7.41 pH 10/23/2024 5:17 AM EDT [facility] pCO2, POCT 35.5(L) 41 - 51 mm Hg 10/23/2024 5:17 AM EDT [facility] pO2, POCT 64(H) 35 - 40 mm Hg 10/23/2024 5:17 AM EDT [facility] Base Excess, POCT -6(L) 0 - 3 mmol/L 10/23/2024 5:17 AM EDT [facility] HCO3, POCT 19.3(L) 23 - 28 mmol/L 10/23/2024 5:17 AM EDT [facility] TCO2, POCT 20(L) 24 - 29 mmol/L 10/23/2024 5:17 AM EDT [facility] Saturated O2, POCT 91(H) 70 - 75 % 10/23/2024 5:17 AM EDT [facility] Manjit's Test, POCT N/A 10/23/2024 5:17 AM EDT [facility] Blood 10/23/2024 4:19 AM EDT 10/23/2024 5:17 AM EDT us Eva Delgado MD LAB POCT ORDERABLES - D EVICE Final Result [facility] [address] [place] [address], [place] * (ABNORMAL) CBC Auto Differential (10/23/2024 4:14 AM EDT) Only the most recent of2 resultswithin the time period is included. WBC 10.2 3.8 - 10.8 10*3/uL 10/23/2024 4:40 AM EDT [facility] RBC 5.36 4.20 - 5.80 10*6/uL 10/23/2024 4:40 AM EDT [facility] Hemoglobin 15.3 13.2 - 17.1 g/dL 10/23/2024 4:40 AM EDT [facility] Hematocrit 46.2 38.5 - 50.0 % 10/23/2024 4:40 AM EDT [facility] MCV 86.2 80.0 - 100.0 fL 10/23/2024 4:40 AM EDT [facility] MCH 28.5 27.0 - 33.0 pg 10/23/2024 4:40 AM EDT [facility] MCHC 33.1 32.0 - 36.0 g/dL 10/23/2024 4:40 AM EDT [facility] RDW 13.1 11.0 - 15.0 % 10/23/2024 4:40 AM EDT [facility] Platelets 190 140 - 400 10*3/uL 10/23/2024 4:40 AM EDT [facility] MPV 10.5 7.5 - 12.5 fL 10/23/2024 4:40 AM EDT [facility] Neutrophil % 82.9 % 10/23/2024 4:40 AM EDT [facility] Immature Grans % 0.3 0.0 - 0.9 % 10/23/2024 4:40 AM EDT [facility] Lymphocyte % 9.6 % 10/23/2024 4:40 AM EDT [facility] Monocyte % 5.9 % 10/23/2024 4:40 AM EDT [facility] Eosinophil % 0.9 % 10/23/2024 4:40 AM EDT [facility] Basophil % 0.4 % 10/23/2024 4:40 AM EDT [facility] Neutrophil # 8.50(H) 1.50 - 7.80 10*3/uL 10/23/2024 4:40 AM EDT [facility] Immature Grans # 0.03 <=0.03 10*3/uL 10/23/2024 4:40 AM EDT [facility] Lymphocyte # 1.00 0.85 - 3.90 10*3/uL 10/23/2024 4:40 AM EDT [facility] [employer] [facility] Monocyte # 0.60 0.20 - 0.95 10*3/uL 10/23/2024 4:40 AM EDT [facility] [employer] [facility] Eosinophil # 0.10 0.02 - 0.50 10*3/uL 10/23/2024 4:40 AM EDT [facility] Basophil # <0.03 0.00 - 0.20 10*3/uL 10/23/2024 4:40 AM EDT [facility] [employer] [facility] nRBC % 0.0 /100 WBCs 10/23/2024 4:40 AM EDT [facility] [employer] [facility] nRBC # <0.01 <0.01 10*3/uL 10/23/2024 4:40 AM EDT [facility] Blood Structure of peripheral vein / Unknown Venipuncture / Unknown 10/23/2024 4:14 AM EDT 10/23/2024 4:32 AM EDT us Eva Delgado MD LAB BLOOD ORDERABLES Fi nal Result [facility] [address] [place] [address], * (ABNORMAL) Basic metabolic panel (10/23/2024 4:14 AM EDT) Only the most recent of2 resultswithin the time period is included. NA 135 135 - 145 mmol/L 10/23/2024 5:02 AM EDT [facility] K 4.2 3.5 - 5.3 mmol/L 10/23/2024 5:02 AM EDT [facility] Cl 98 98 - 107 mmol/L 10/23/2024 5:02 AM EDT [facility] CO2 18(L) 22 - 32 mmol/L 10/23/2024 5:02 AM EDT [facility] [employer] [facility] BUN 21 7 - 23 mg/dL 10/23/2024 5:02 AM EDT [facility] [employer] [facility] Creatinine 1.27 0.60 - 1.30 mg/dL 10/23/2024 5:02 AM EDT [facility] [employer] [facility] Glucose 360(H) 65 - 99 mg/dL 10/23/2024 5:02 AM EDT [facility] CENTERAdmiral Records ManagementAC[facility]ALTH[facility] Calcium 9.7 8.6 - 10.5 mg/dL 10/23/2024 5:02 AM EDT [facility]CAREElectric EntertainmentAC[facility] [employer] Anion Gap 19(H) 5 - 15 10/23/2024 5:02 AM EDT [facility]CL[facility] [employer] [facility] eGFR 63 >=60 mL/min/1. 73m2 10/23/2024 5:02 AM EDT [facility]CAREE[facility] EntertainmentAC[facility] Comment:The estimated glomer ular [...] MD LAB BLOOD ORDERABLES Fi nal Result [facility] [address] [place] [address], [place] * Continuous EEG Monitoring (10/22/2024 10:25 AM EDT) Narrative [facility] - 10/22/2024 10:25 AM EDT Eva Delgado MD ? 10/23/2024 11:45 AM CONTINUOUS VIDEO-EEG REPORT Patient: Cristopher Guzman : 1960 Age at study time: 64 y.o. male Study information: EEG type: continuous EEG with video Indication for EEG: clinical suspicion of epilepsy or seizure Start: 10/21/2024, 10:00am Stop: 10/22/2024, 9:00am Sensor group: 10-20 system (21 electrodes), single channel ECG, [employer] equipment Medications include: Scheduled Meds:allopurinoL, 300 mg, [...] AM J Clin Neurophysiol. 2020;38(1):1-29 Clin Neurophysiol. 2016;128(11):9570-1008 CONTINUOUS VIDEO-EEG CUMULATIVE SUMMARY TO DATE: Medications: [...] NEUROLOGY ORDERABLES Ed ited Result - Final [facility] * Continuous EEG Monitoring (10/21/2024 3:01 [...] system (21 electrodes), single channel ECG, [employer] equipment Medications include: Scheduled Meds:allopurinoL, 300 mg, [...] discharges or electrographic seizures are seen Eva Erlich-Malona, MD 10/21/2024 3:01 PM J Clin Neurophysiol. 2020;38(1):1-29 Clin Neurophysiol. 2017 Jun;128(02):2898-0234 CONTINUOUS VIDEO-EEG CUMULATIVE SUMMARY TO DATE: Medications: [...] David Wilson MD ? 10/24/2024 ??9:41 AM [facility] CONTINUOUS VIDEO-EEG REPORT Patient: Cristopher [...] video and single channel EKG recording on Wikia equipment Activation procedures: none EEG Background: Symmetry: [...] and Other Clinical Events: none Single Channel Manager Mass: Rhythm: regular Rate (typical): 70-90 bpm Other: [...] events David Wilson MD, MPH Epileptologist Reference: Citizen Of [place] Clinical Neurophysiology Society's Standardized Critical Care EEG [...] Delgado MD NEUROLOGY ORDERABLES Fi nal Result [facility] * (ABNORMAL) Iron Saturation (10/20/2024 7:59 PM EDT) Iron Saturation 17(L) 20 - 50 % 4:09 AM EDT [email or web address] Iron 71 45 - 160 ug/dL 10/21/2024 4:09 AM EDT [email or web address] Transferrin 325 200 - 360 mg/dL 10/21/2024 4:09 AM EDT [email or web address] Total Iron Binding Capacity 406 255 - 450 ug/dL 10/21/2024 4:09 AM EDT [email or web address] Blood Structure of peripheral vein / Unknown Venipuncture / Unknown 10/20/2024 7:59 PM EDT 10/20/2024 8:04 PM EDT Eva Delgado MD LAB BLOOD ORDERABLES Fi nal Result Performing Organization Address [facility] Co de Phone Number [email or web address] [address] [place] [address], * Ferritin (10/20/2024 7:59 PM EDT) Ferritin 24.2 23.0 - 336.0 ng/mL 10/21/2024 4:09 AM EDT [email or web address] Blood Structure of peripheral vein / Unknown Venipuncture / Unknown 10/20/2024 7:59 PM EDT 10/20/2024 8:04 PM EDT Eva Delgado MD LAB BLOOD ORDERABLES Fi nal Result [email or web address] [address] [place] [address], * Hepatic Function Panel (10/20/2024 7:59 PM EDT) Total Protein 7.5 6.0 - 8.0 g/dL 10/20/2024 8:37 PM EDT [email or web address] Albumin 4.5 3.5 - 5.2 g/dL 10/20/2024 8:37 PM EDT [email or web address] Globulin, Total 3.0 2.1 - 4.2 g/dL 10/20/2024 8:37 PM EDT [email or web address] Bilirubin, Total 0.5 0.2 - 1.2 mg/dL 10/20/2024 8:37 PM EDT [email or web address] Bilirubin, Direct 0.2 <=0.4 mg/dL 10/20/2024 8:37 PM EDT [email or web address] Alkaline Phosphatase 93 35 - 129 U/L 10/20/2024 8:37 PM EDT [email or web address] AST 22 10 - 40 U/L 10/20/2024 8:37 PM EDT [facility] ALT 17 10 - 40 U/L 10/20/2024 8:37 PM EDT [email or web address] Bilirubin, Indirect 0.30 <=0.70 mg/dL 10/20/2024 8:37 PM EDT [email or web address] A/G Ratio 1.5 1.5 - 3.0 10/20/2024 8:37 PM EDT [email or web address] Blood Structure of peripheral vein / Unknown Venipuncture / Unknown 10/20/2024 7:59 PM EDT 10/20/2024 8:04 PM EDT us Eva Delgado MD LAB BLOOD ORDERABLES Fi nal Result [facility] [address] [place] [address], [place] from Last 3 Months Insurance [employer] MCR Advance Directives * Presumed Full Code (Latest Code Status on File) Date Activated Date Inactivated Comments 10/20/2024 7:44 PM 10/24/2024 7:07 PM Care Teams Plating Machine Operator Relationship Specialty Start Date End Date Lu Goel MD [address] [place] [phone] PCP - General Family Medicine 09/19/20
--- OUTSIDE RECORDS SUMMARY | 2024-12-14 08:59 | XMS_ITS | Encounter Summary ---
Author Organization [facility] Address [address] [place] [address] Care Team Providers Care Otr Truck Driver Name Role Phone Lu Goel MD Primary Care Provider [phone] Encounter Details Date Type Department Care Team (Late st Contact Info) Description 07/25/2024 O&P Prohart Message [facility] Financial Clearance Department [address] [place] [id number] NinthDecimalhart, Generic Provider [address] [place], [place] [id number] No Auth required Social History Tobacco Use [...] Description 02/15/2025 3:00 PM EDT Office Visit [facility] [address] [place] [address] Randi Wynne MD [address] [place] [address] documented as of this encounter Visit Diagnoses Not on filedocumented in this encounter Care Teams Otr Truck Driver Relationship Specialty Start Date End Date Lu Goel MD [address] [address] PCP - General Family Medicine 09/19/20 documented as of this encounter
--- OUTSIDE RECORDS SUMMARY | 2024-12-14 08:59 | XMS_ITS ---
Author Organization [facility] Address [address] [place] [address] Care Team Providers Care Air Conditioning Manager Name Role Phone Lu Goel M.D. Primary Care Provider Un available Naif Phipps Unavailable [phone] REASON FOR VISIT Januvia Encounters Encounter Location Date Provider Diagnosis [facility] [address] [place] [address] 08/16/2023 Naif Phipps Plan Of Treatment No Information Progress Notes * COLTON GUZMAN PDOB:[birth year] (63 yo M)Acc No.[id number]:08/16/2023 Patient:?COLTON GUZMAN :1960???Age:63 Y???Sex:Male Address:[place] [address] * true * Date:? Generated for Lizethi laly/Diane/eTransmitting on:?12/14/2024 08:59 AM EDT
--- OUTSIDE RECORDS SUMMARY | 2024-12-14 09:00 | XMS_ITS | Encounter Summary ---
Author Organization [facility] Address [address] [place] [address] Care Team Providers Care Vinyl Welder And Fabricator Name Role Phone Lu Goel MD Primary Care Provider [phone] Reason for Visit * Reason Onset Date Comments Appointment 05/09/2021 Encounter Details Date Type Department Care Team (Late st Contact Info) Description 05/09/2021 Telephone [facility] [address] [place] [address] Telephone Intake, Staff Appointment Social History [...] MD Sent: 04/29/2021 11:23 PM EDT To: [facility] Neurology Admin Staff Please reach out to [...] Description 02/15/2025 3:00 PM EDT Office Visit [facility] [address] [place] [address] Randi Wynne MD [address] [place] [address] documented as of this encounter Visit Diagnoses Not on filedocumented in this encounter Care Teams Vinyl Welder And Fabricator Relationship Specialty Start Date End Date Lu Goel MD [address] [place] [phone] PCP - General Family Medicine 09/19/20 documented as of this encounter
--- OUTSIDE RECORDS SUMMARY | 2024-12-14 09:00 | XMS_ITS ---
Author Organization [facility] Address [address] [place] [address] Care Team Providers Care Harvesting Manager Name Role Phone Lu Goel M.D. Primary Care Provider Un available Desire Naif Unavailable [phone] REASON FOR VISIT screening,hx polyps Problems Problem Type SNOMED Code ICD Code Onset Dates Problem Status W/U Status Risk Notes Problem History of polyp of colon (situation) (906277770) Personal history of colonic polyps (Z86.010) Active confirmed Problem Diverticulosis o f large intestine without perforation or abscess without bleeding (K57.30) Active confirmed Encounters Encounter Location Date Provider Diagnosis [facility] [address] [place], [place] [id number] 08/28/2023 Naif Phipps Encounter for scre ening colonoscopy Z12.11 ; [...] COLTON GUZMAN PDOB:[birth year] (64 yo M)Acc No.[id number]:08/28/2023 COLON WITH MAC Patient:?COLTON GUZMAN Provider:?Naif Phipps MD :1960???Age:63 Y???Sex:Male Glenn e:08/28/2023 Address:[place] Pcp:Lu Goel M.D. Subjective: * Chief Complaints: * ???1. Screening,hx polyps. * Medical History:? Objective: * Vitals:? Assessment: * Assessment: 1.?Encounter for screening c olonoscopy - Z12.11 (Primary)???2.?Personal history of colonic polyps - Z86.010???3.?Diverticulosis of large intestine without perforation or abscess without bleeding - K57.30???4.?Other hemorrhoids - K64.8??? Plan: * Treatment: * Procedure Codes:?43158 DIAGN OSTIC COLONOSCOPY, Modifiers: 33 * Preventive [...] Phipps MD Date:? 024 Generated for Eli ruffin/Diane/eTransmitting on:?12/14/2024 08:59 AM EDT
== END 2024-12-14 09:17 | disposition home or self-care (01) ==
LOC: HO.HCS 08:40
PROVIDERS: PCP Family Medicine; Visit Provider Internal Medicine Cardiovascular Disease
DX: Z95.5 Presence of coronary angioplasty implant and graft (principal); I48.0 Paroxysmal atrial fibrillation; I20.89 Other forms of angina pectoris
CPT/HCPCS: 93010; 99214

== ENCOUNTER → 2024-12-14 08:40 | Outpatient (BNVA) | payer OTHER, SELFPAY | PROVIDERS: PCP Family Medicine; Visit Provider Internal Medicine Cardiovascular Disease | DX: I48.0 Paroxysmal atrial fibrillation (principal); I20.89 Other forms of angina pectoris; Z79.01 Long term (current) use of anticoagulants; Z79.02 Long term (current) use of antithrombotics/antiplatelets; Z79.899 Other long term (current) drug therapy; Z95.5 Presence of coronary angioplasty implant and graft | CPT/HCPCS: 93005 ==